=== PATIENT | male | born 1940 | race Caucasian/White ===

== ENCOUNTER 2019-08-20 07:29 | Inpatient (IN) ==
[2019-08-04 08:44] LABS: Appearance Urine Clear (Clear); Bacteria Urine Automated Negative (Negative); Bilirubin Urine Negative (Negative); Blood Urine Trace (Negative); Color Urine Yellow; Glucose Urine UA Negative (Negative); Ketones Urine 2+ (Negative); Leukocyte Esterase Urine Negative (Negative); Nitrite Urine Negative (Negative); Protein Urine Negative (Negative); Specific Gravity Urine 1.022 (1.000-1.030); Urobilinogen Urine Negative (Negative)
--- NOTE | 2019-08-15 08:52 | Anesthesiology Consultation ---
Date of Service August 15, 2019 Assessment & Plan Chart Review Chart Review: Acceptable Risk for Surgery and Patient NOT seen in Pre Admission Testing Low risk COVID screening, no sxs. COVID testing 08.14.19 results pending Consults Requested none History Surgery Operation Date: 08/20/19 08:00 Proposed Procedures p Left Total Knee Arthroplasty - Chucky Barrera MD Height/Weight Height: 5 ft 4 in Weight: 81.647 kg Allergies Allergy/AdvReac Type Severity Reaction Status Date / Time methylprednisolone Allergy Mild Tachycardia Unverified 08/14/19 14:15 Medications Home Medications Medication Instructions Recorded Confirmed Last Taken esomeprazole magnesium [Nexium] 20 mg PO QAM 08/14/19 08/14/19 Unknown tamsulosin [Flomax] 0.4 mg PO QAM 08/14/19 08/14/19 Unknown vit C,F-Zh-clulc-lutein-zeaxan 1 tab PO QAM 08/14/19 08/14/19 Unknown [PreserVision AREDS-2] Past Family History Family History Mother Diabetes Social History Smoking Status: Never smoker Do You Dip or Chew Tobacco: No Hx Alcohol Use: No Hx Substance Use: No substance use type: does not use Testing Laboratory Results Urine Color Yellow 08/04/19 08:08 Urine Appearance Clear (Clear) 08/04/19 08:08 Urine pH 5.0 (4.5-7.5) 08/04/19 08:08 Ur Specific [place] 1.022 (1.000-1.030) 08/04/19 08:08 Urine Protein Negative (Negative) 08/04/19 08:08 Urine Glucose (UA) Negative (Negative) 08/04/19 08:08 Urine Ketones 2+ (Negative) H 08/04/19 08:08 Urine Nitrite Negative (Negative) 08/04/19 08:08 Ur Leukocyte Esterase Negative (Negative) 08/04/19 08:08 Urine WBC (Auto) 1-5 /hpf (0-5) 08/04/19 08:08 Urine RBC (Auto) 5-10 /hpf (0-4) H 08/04/19 08:08 U Hyaline Cast (Auto) 1-5 /lpf (0-5) 08/04/19 08:08 U Epithel Cells (Auto) 5-10 /lpf (0-5) H 08/04/19 08:08 Urine Bacteria (Auto) Negative (Negative) 08/04/19 08:08 Blood Type O Positive 08/04/19 08:05 Antibody Screen NEGATIVE 08/04/19 08:05 07/29/19 H/H 14.1/43.1 PLT 228 INR 1.02 K 4.4 BUN 18 creat 0.8 gluc 147 HgbA1c 6.3 Electrocardiogram Date: 03/24/19 Findings: + NSR @ (83bpm) Chest X-Ray Date: 07/24/19 Findings: + NAD
--- NOTE | 2019-08-19 16:13 | History and Physical Report ---
DATE OF ADMISSION: 08/20/2019 CHIEF COMPLAINT: Chronic left knee pain. HISTORY OF PRESENT ILLNESS: A 78-year-old male patient of Dr. Barrera'karen complaining of chronic left knee pain, longstanding, now progressively getting worse. The patient has failed conservative treatment including intra-articular injections, anti-inflammatories, home exercise program and the use of a brace. The patient has pain with increased activities and his pain does interfere with his activities of daily living. The patient has been diagnosed with end-stage osteoarthritis per clinical and radiographic exams and wishes to proceed with a left total knee arthroplasty. PAST MEDICAL HISTORY: Hypercholesterolemia, migraines, rheumatoid arthritis, osteoarthritis, acid reflux, kidney stones. SOCIAL HISTORY: Nonsmoker and nondrinker. PAST SURGICAL HISTORY: Appendectomy, skin grafting on the right arm. FAMILY HISTORY: Noncontributory. REVIEW OF SYSTEMS: Chronic left knee pain, otherwise denies any shortness of breath, chest pain, nausea, vomiting or any other joint complaints. MEDICATIONS: 1. Tamsulosin 0.4 mg 1 tablet every other day. 2. Advil 200 mg 2 tablets daily as needed. 3. Nexium 20 mg daily. ALLERGIES: INCLUDE STEROIDS, WHICH CAUSE TACHYCARDIA. PHYSICAL EXAMINATION: GENERAL: Well-developed, well-nourished 78-year-old male in no acute distress. He is alert and oriented x3 and pleasant. HEENT: Normocephalic, atraumatic. Extraocular motions are intact. Pupils are equal and reactive to light. HEART: Regular rate and rhythm, no murmurs. LUNGS: Clear. ABDOMEN: Soft, nontender, bowel sounds present. EXTREMITIES: Left knee varus deformity with medial joint line tenderness, positive effusion. Range of motion of 0-125. 5/5 strength. Neurologically and neurovascularly intact in his left lower extremity. DIAGNOSES: Left knee end-stage osteoarthritis, hypercholesterolemia, migraines, rheumatoid arthritis, osteoarthritis, acid reflux, kidney stones. PLAN: The patient was advised of his diagnosis. Indications, risks, benefits, postop course have all been reviewed. The patient wished to proceed with a left total knee arthroplasty. Necessary consent forms, preoperative testing and clearances will be obtained.
[~2019-08-20 07:29] MED LIST: ACETAMINOPHEN 500 MG TAB PO SCH; BUPIVACAINE 0.5 % 5 MG/1 ML MPF 30ML VIAL ONE; BUPIVACAINE/EPINEPHRINE 0.25% 1:200,000 30 ML VIAL ONE; CEFAZOLIN 2000MG 2,000 MG/15 ML SYR IV SCH; CeleBREX 200 MG CAP PO SCH; GABAPENTIN 300 MG CAP PO SCH; LR 500ML BOLUS, THEN 15ML/HR IV SCH; METOCLOPRAMIDE HCL 10 MG TABLET PO SCH; ROPIVACAINE 0.5% HCL/PF 150 MG, BUPIVACAINE 0.5% MPF 30 ML, EPINEPHrine 30MG/30ML (OR U... INFIL SCH; TRANEXAMIC ACID 1,000 MG **IV Intra-op IV SCH; TRANEXAMIC ACID 1,000 MG **IV Pre-op IV SCH
[2019-08-20] MEDS ORDERED: MIDAZOLAM HCL 1 MG/ML 2ML VIAL ONE (07:40)
[2019-08-20] MEDS ORDERED: fentaNYL citrate 100 MCG/2 ML VIAL ONE (07:40)
[2019-08-20] MEDS: FAMOTIDINE 20 MG TAB PO SCH ×2 (08:45→08:46)
--- NOTE | 2019-08-20 08:53 | History & Physical Bridge Note ---
Date of Service August 20, 2019 History & Physical Bridge Note I have examined the patient, reviewed the History & Physical and in the interval since the performance of the History & Physical I have noted the following changes of clinical significance: no changes noted
[2019-08-20] MEDS ORDERED: ONDANSETRON INJ 2 MG/ML 2 ML VIAL IV PRN ×2 (09:02→13:20)
[2019-08-20] MEDS ORDERED: fentaNYL citrate 100 MCG/2 ML VIAL IV PRN (09:02)
[2019-08-20] MEDS ORDERED: ePHEDrine sulfate 50 MG/ML AMP IV PRN (09:02)
[2019-08-20] MEDS ORDERED: HYDROmorphone INJ 2 MG/ML SYR/VIAL IV PRN (09:02)
[2019-08-20] MEDS ORDERED: ATROPINE SULFATE 0.1 MG/ML 10ML SYR IV PRN (09:02)
[2019-08-20] MEDS ORDERED: ORTHO JOINT ANESTHETIC ONE (09:27)
[2019-08-20] MEDS ORDERED: BACITRACIN INJ 50,000 UNIT VIAL ONE (09:27)
[2019-08-20] MEDS ORDERED: PROPOFOL IV EMULSION 10 MG/ML 20 ML VIAL IV ONE (10:31)
[2019-08-20] MEDS ORDERED: LIDOCAINE HCL 2% 2 ML VIAL/AMP(20MG/ML) INFIL ONE (10:31)
[2019-08-20] MEDS ORDERED: ONDANSETRON INJ 2 MG/ML 2 ML VIAL ONE (10:31)
--- NOTE | 2019-08-20 11:46 | Post Operative Brief Note ---
Immediate Post Op Note v1 Date of Surgery August 20, 2019 Pre & Post Diagnosis Operation Date: 08/20/19 09:40 Pre-Op Diagnosis: LEFT KNEE OSTEOARTHRITIS Post-Op Diagnosis: LEFT KNEE OSTEOARTHRITIS I identified the patient and participated in the time-out.: Yes Procedure Operation Date: 08/20/19 09:40 Actual Procedures p Left Total Knee Arthroplasty, Cemented(Left) - Chucky Barrera MD Surgeon Chucky Barrera MD Mass Spectrometry Specialist MICHELLE Hamm Estimated Blood Loss 25 Findings Consistent with Post-Op Diagnosis Specimens Bone cuts Drains Hemovac Drain Anesthesia Type MAC Spinal Regional Complications none Disposition Accompanied Patient To Recovery: No Disposition: Recovery Room Overlapping Procedure I was present for: the critical portions of procedure. Back up surgeon: was not required during procedure.
[2019-08-20] MEDS: SODIUM CHLORIDE 0.9% 1000ML 1,000 ML IV SCH (12:50)
--- NOTE | 2019-08-20 12:56 | XRay Report ---
XR knee LT 1 or 2V routine CLINICAL HISTORY: Surgical Post Op COMPARISON: None. DISCUSSION: Anatomic alignment post total left knee arthroplasty. Could contact between prosthetic an d underlying bone. Expected postoperative soft tissue change IMPRESSION: Anatomic alignment post total left knee arthroplasty. ACT 112: Negative or not required by law. The above report was generated using voice recognition software. It may contain grammatical, syntax or spelling errors. Electronically signed by: Lamin Olivas M.D. 08/20/2019 12:54 PM
[2019-08-20] MEDS ORDERED: NALOXONE HCL 0.4 MG/1 ML VIAL/CARP IV PRN (13:20)
[2019-08-20] MEDS ORDERED: HYDROmorphone INJ 0.5 MG/0.5 ML SYR IV PRN (13:20)
[2019-08-20] MEDS ORDERED: bisacodyL 10 MG SUPP PR PRN (13:20)
--- NOTE | 2019-08-20 13:42 | Anesthesiology Progress Note ---
Date of Service August 20, 2019 Anesthesia Post Procedure Vital Signs Vital Signs: Temp Pulse Pulse Resp BP BP Pulse Ox 08/20/19 13:19 80 15 131/97 97 08/20/19 12:50 36.6 C 79 16 157/81 H 98 08/20/19 12:35 36.3 C L 78 17 147/83 H 97 08/20/19 12:25 79 21 139/71 96 08/20/19 12:15 90 16 118/64 97 08/20/19 12:05 36.4 C L 92 H 10 L 101/55 L 98 08/20/19 09:06 80 20 147/65 H 97 08/20/19 08:27 36.7 C 90 20 172/82 H 95 Pain Intensity Left Knee: Pain Intensity: 0 Transfer of Care Handoff Completed per policy Notes Mental Status: alert / awake / arousable and participated in evaluation Patient Amnestic to Procedure: Yes Nausea / Vomiting: adequately controlled Pain: adequately controlled Airway Patency, RR, SpO2: stable & adequate BP & HR: stable & adequate Hydration State: stable & adequate Anesthetic Complications: no major complications apparent and Pt Satisfied with anesthetic care
[2019-08-20] MEDS ORDERED: ACETAMINOPHEN 500 MG TAB PO SCH (14:00)
--- NOTE | 2019-08-20 14:27 | Consultation ---
Date of Consultation August 20, 2019 Assessment & Plan (1) S/P total knee arthroplasty: Post op day# 0 S/P Left TKA by Dr Barrera EBL#25ml Post op doing well -pain management per ortho -wound management per ortho -PT/OT as appropriate -DVT prophylaxis per ortho, SCDs -incentive spirometry -monitor H&H for acute blood loss anemia; pre-op Hgb: 14 (2) BPH (benign prostatic hyperplasia): -Continue tamsulosin (3) GERD (gastroesophageal reflux disease): -Continue PPI DVT Prophylaxis -SCDs Disposition per primary service Follows with Dr Hyman for routine care Pt was seen and care coordinated with Dr Lou. See addendum Pt will be followed by Dr Siddiqui starting 08/21/2019. Thank you for this consultation. We will follow the patient with you during their hospital stay. You can reach a member of the [facility] Hospitalist Team 18/09 via pager @ [phone]. Supervising Physician Co-Signing Physician Notes ATTENDING ADDENDUM : Patient seen and examined, care coordinated with Vi Ang PA-C This is a 78-year-old male status post knee surgery, for advanced DJD Recovering well postop, Continue pain management PT OT as per orthopedics Medically stable, please refer to further documentation by Vi Ang PA-C for discussion of other chronic issues Stephanie Lou MD History of Present Illness Requesting Physician: Dr Barrera Reason for Consultation: Post op medical management Attending Physician: Chucky Barrera MD History of Present Illness Pt is 78 y/o M with PMH BPH, GERD seen in medical consultation s/p elective L TKA today by Dr Barrera. Post op pt doing well. Denies any pain currently. Denies paresthesias. Ate entire meal tray without difficulty. Denies N/V, SOB, CP. Denies fever/chills, diaphoresis, diarrhea, constipation, SUNG, dizziness, syncope, vision changes, neck pain, CP, SOB, orthopnea, palpitations, cough, sore throat, choking, otalgia, rhinorrhea, abdominal pain, extremity edema, rashes, urinary symptoms. Allergies Allergy/AdvReac Type Severity Reaction Status Date / Time methylprednisolone AdvReac Mild Tachycardia Unverified 08/20/19 10:03 Home Medications Home Medications Medication Instructions Recorded Confirmed Type esomeprazole magnesium [Nexium] 20 mg PO QAM 08/14/19 08/20/19 History tamsulosin [Flomax] 0.4 mg PO QAM 08/14/19 08/20/19 History vit C,Q-Ci-asypk-lutein-zeaxan 1 tab PO QAM 08/14/19 08/20/19 History [PreserVision AREDS-2] Patient History Medical History (Updated 08/21/19 @ 10:15 by Sada Rodriguez PA-C) BPH (benign prostatic hyperplasia) GERD (gastroesophageal reflux disease) Hyperlipidemia NO MEDS Macular degeneration Osteoarthritis Pre-diabetes Surgical History (Updated 08/20/19 @ 14:32 by Sonali Ang PA-C) History of appendectomy History of arthroscopy RIGHT KNEE History of colonoscopy Hx of bilateral cataract extraction Hx of vasectomy Family History Mother Diabetes Social History Preferred Language: Nepali Communication Ability: Effective Extrusion Line Operator Required: No Beliefs That Will Affect Care: None marital status: / Current Living Situation: Alone Other Information That Helps Us Care for You: No Feels Safe at Home: Yes Safety Concerns: Feels Safe At This Time Smoking Status: Never smoker Do You Dip or Chew Tobacco: No ; Second Hand Exposure: Yes (IN PAST) ; Tobacco Cessation Education Requested by Patient: No Hx Alcohol Use: No Hx Substance Use: No Review of Systems Review of Systems: All systems reviewed & are unremarkable except as noted in HPI & below Physical Exam Physical Exam: General: no distress, WDWN Head: normocephalic, atraumatic Eyes: conjunctiva non-injected, anicteric ENT: normal inspection external ears, nose, mucous membranes moist Neck: supple, trachea midline, non-tender Lungs: clear, no respiratory distress, no wheezing/rhonchi/rales CV: RRR, no murmur, no pretibial edema Abd: normal BS, soft, non-tender Ext: no calf tenderness; Left leg with wrap in place, +hemovac drain in place with serosanguineous drainage, distal pulses intact, pedal pushes and pulls intact bilaterally, sensation to light touch intact Neuro: A&O x 3, no focal deficits noted, normal affect Skin: warm, dry Results & Data ([facility]) Vital Signs (Past 12 Hours) Vital Signs Temp Pulse Pulse Resp BP BP Pulse Ox 08/20/19 13:55 36.3 C L 82 18 152/81 H 97 08/20/19 13:19 80 15 131/97 97 08/20/19 12:50 36.6 C 79 16 157/81 H 98 08/20/19 12:35 36.3 C L 78 17 147/83 H 97 08/20/19 12:25 79 21 139/71 96 08/20/19 12:15 90 16 118/64 97 08/20/19 12:05 36.4 C L 92 H 10 L 101/55 L 98 08/20/19 09:06 80 20 147/65 H 97 08/20/19 08:27 36.7 C 90 20 172/82 H 95
--- NOTE | 2019-08-20 15:34 | Operative Report ---
Post Operative Report Pre & Post Diagnosis Operation Date: 08/20/19 09:40 Pre-Op Diagnosis: LEFT KNEE OSTEOARTHRITIS Post-Op Diagnosis: LEFT KNEE OSTEOARTHRITIS I identified the patient and participated in the time-out.: Yes Procedure Operation Date: 08/20/19 09:40 Actual Procedures p Left Total Knee Arthroplasty, Cemented(Left) - Chucky Barrera MD Surgeon Chucky Barrera MD Regular Senior Care Provider MICHELLE Hamm Estimated Blood Loss 25 Findings Consistent with Post-Op Diagnosis Specimens Bone cuts Drains 2 Hemovac Anesthesia Type MAC Spinal Regional Complications none Disposition Accompanied Patient To Recovery: No Disposition: Recovery Room Indications 78-year-old male with bilateral knee pain. Is left knee essentially [id number] in medial compartment on flexion views with a varus knee. Right knee has moderate osteoarthritis. Patient has undergone injection therapy his right knee said physical therapy and bracing. Patient scheduled for the left knee replacement. Description of Procedure Patient taken to the operating room the size under spinal MAC regional anesthesia. Patient was placed supine on the operating table. A pneumatic tourniquet was placed about the left next field left upper thigh. The left lower extremity was prepped and draped in sterile fashion. Knee exam demonstrated good range of motion varus knee no instability mild effusion. The leg was elevated exsanguinated with an Esmarch bandage and pneumatic tourniquet was raised to 300 millimeters of mercury. Skin incised sharply in longitudinal fashion. Subcutaneous flaps elevated. Incision was made through the medial retinaculum extending up in the mid third of the quadriceps tendon and down to the medial tibial tubercle. Intra-articular findings demonstrated primarily medial compartment osteoarthritis [id number] medial compartment grade 4 osteoarthritis. The [employer] triathlon total knee arthroplasty system was used. To expose the knee the infrapatellar fat pad was resected. The meniscal remnants and cruciate ligaments were resected. The anterior fat pad over the femur in the area of the anterior flange of the femoral component was resected. Lateral synovial bands release. The femur was exposed. An intramedullary drill hole was made into the canal. A guide kenn was placed. Distal femoral cutting guide was adjusted to resect a 5 degree valgus cut with 8 millimeters distal femur resected. The knee was extended and a subperiosteal peel lateral release was performed around the patella. Patella width was measured and width was reproduced using a freehand cut technique and a 33 x 9 symmetrical patella component. The 3 drill holes were made and the excess lateral facet was beveled off to prevent any impingement. Attention was taken back to the femur which was exposed with retractors and the femoral sizing guide was pinned in position. The drill holes were placed in 3 of external rotation to match epicondylar axis. Femur sized for a 5 component. The 4-in-1 cutting block was placed and then the anterior posterior and chamfer cuts are made. The tibia was then subluxed. The external tibial cutting guide was just to make a perpendicular cut to the long axis of the tibia below the most deficient bone loss side. A lamina press clipper was used and the flexion extension gaps were balanced. All posterior osteophytes removed. All meniscal remnants were resected. The tibia exposed and the trial tibial component size 5 was externally rotated in line with the tibial tubercle and pinned in position. The punch for stem was used. The notch cutting device was centered appropriately and the femoral notch cut was made. The femoral trial was inserted. Trial tibial inserts were placed and size 11 posterior stabilized gave balanced ligaments through flexion and extension. Patella tracking was assessed. The patella tracked centrally. The trial components were then removed and the orthomix anesthetic cocktail was injected per protocol. The knee was then copiously irrigated with pulsatile lavage antibiotic solution. Final components were then cemented with Simplex cement. Final components were triathlon size 5 left posterior stabilized femoral component with distal femoral fixation pegs. Primary tibial baseplate size 5, 5 x 11 mm posterior stabilized polyethylene tibial bearing insert. S 33 x 9 mm patella. While the cement cured the Betadine soak was used per protocol. After cement cured further pulsatile lavage irrigation performed and 2 Hemovac drains were brought out laterally. The quadriceps tendon and medial retinaculum were closed with figure of 8 #1 Vicryl sutures. The knee was taken through full range of motion and the repair was secure. The subcutaneous tissues were closed with 2-0 Vicryl sutures. Skin was closed with vazquez. Sterile dressings were applied. Patient procedure well. Lamin MARTINEZ was my physician religious assistant who assisted in patient positioning prepping and draping,leg positioning ,soft tissue retraction and instrument management and participated in the closing and will participate in postoperative care of the patient. The patient tolerated the procedure well. I attest to the content of the Intraoperative Record and any orders documented therein. Any exceptions are noted below.
[2019-08-20] MEDS: TAMSULOSIN HCL 0.4 MG CAP PO SCH (15:45)
[2019-08-20] MEDS: CEFAZOLIN 2000MG 2,000 MG/15 ML SYR IV SCH (18:00)
[2019-08-20] MEDS: ASPIRIN 81 MG ECTAB PO SCH (20:19)
[2019-08-20] MEDS: CeleBREX 200 MG CAP PO SCH (20:19)
[2019-08-20] MEDS: DOCUSATE SODIUM 100 MG CAP PO SCH (20:19)
[2019-08-20] MEDS: SENNA 8.6 MG TAB PO SCH (20:19)
[2019-08-21] MEDS: SODIUM CHLORIDE 0.9% 1000ML 1,000 ML IV SCH (00:22)
[2019-08-21] MEDS: OXYCODONE HCL IR 5 MG TAB (IMMEDIATE RELEASE) PO PRN ×5 (00:38→23:28)
[2019-08-21] MEDS: CEFAZOLIN 2000MG 2,000 MG/15 ML SYR IV SCH (00:41)
[2019-08-21] MEDS: PANTOprazole 40 MG TAB PO SCH (08:02)
[2019-08-21] MEDS: CeleBREX 200 MG CAP PO SCH ×2 (08:02→21:01)
[2019-08-21] MEDS: MULTIVITAMIN TAB PO SCH (08:03)
[2019-08-21] MEDS: DOCUSATE SODIUM 100 MG CAP PO SCH ×2 (08:03→21:01)
[2019-08-21] MEDS: ASPIRIN 81 MG ECTAB PO SCH ×2 (08:03→21:00)
[2019-08-21 08:21] LABS: Hematocrit (blood only) 36.4 % (42-52); Hemoglobin 11.9 g/dL (14.0-18.0); Mean Corpuscular Hemoglobin 28.7 pg (25-34); Mean Corpuscular Hgb Conc 32.7 g/dL (32-36); Mean Corpuscular Volume 87.7 fL (80-100); Mean Platelet Volume 10.3 fL (7.4-10.4); Platelet Count 185 K/uL (130-400); RDW Coefficient of Variation 13.9 % (11.5-14.5); RDW Standard Deviation 44.6 fL (36.4-46.3); Red Blood Count 4.15 M/uL (4.7-6.1); White Blood Count 6.97 K/uL (4.8-10.8)
--- NOTE | 2019-08-21 08:41 | Orthopedic Progress Note ---
Date of Service August 21, 2019 Assessment & Plan (1) S/P total knee arthroplasty: POD #1, Left TKA PT/ OT DT proph- ASA D/C planning- Home w OPPT per medicine- BP/ Tachycardic. Admission and Anticipated Discharge Date Admission Date: August 20, 2019 Subjective POD #1, Feeling well. Denies SOB/ CP/ N/V, no dizziness. Pain controlled well. Wishes for OPPT on D/C. BP and heart rate up this AM. Physical Exam Physical Exam: Left knee dressings c/d/i, no drainage. Toes/ ankle mobile. No calf tenderness. A&Ox3. Results & Data ([facility]) Vital Signs (Past 12 Hours) Vital Signs Temp Pulse Pulse Resp BP BP Pulse Ox 08/21/19 02:39 36.5 C 109 H 18 159/77 H 167/83 H 94 08/20/19 23:02 36.9 C 94 H 16 149/74 H 94
[2019-08-21 08:55] LABS: BUN Creatinine Ratio 21.1 (10-20); Calcium 8.4 mg/dl (8.5-10.1); Creatinine Clr Calc Pharmacy 75.3 ml/min; Est GFR (African American) 100.9; Est GFR (Non-African American) 87.1; Potassium 3.8 mmol/L (3.5-5.1)
[2019-08-21] MEDS ORDERED: NON-FORMULARY MEDICATION (Vit C,E-Zn-Coppr-Lutein-Zeaxan [Preservision Areds-2] 1 TAB) PO SCH (09:00)
[2019-08-21] MEDS ORDERED: TAMSULOSIN HCL 0.4 MG CAP PO SCH (09:00)
--- NOTE | 2019-08-21 10:18 | Hospitalist Progress Note ---
Date of Service August 21, 2019 Assessment & Plan (1) S/P total knee arthroplasty: Post op day# 1 S/P Left TKA by Dr Barrera EBL#25ml; hemovac 478ml Post op doing well pain/wound management per ortho activity and therapy as directed by ortho DVT prophylaxis per ortho, SCDs, ASA BID incentive spirometry monitor H&H for acute blood loss anemia; pre-op Hgb: 14 (H/H 11.9 and 36.4) (2) Elevated blood pressure reading: Patient with elevated blood pressure readings throughout the day yesterday and last evening, 167/83, 159/77, 170/79 He was also noted to be tachycardic at times as well After interviewing patient it does seem that elevated heart rate and BP correlates with increased pain last evening I did review epic chart which did reveal mildly elevated blood pressure dating back to 09/2017 including 07/28/2019 BP 152/70 (other readings include 150/82, 154/76) He likely has component of essential hypertension at baseline and is not treated on any antihypertensive Do not feel need to initiate any medications at this time but will monitor c losely In meantime continue pain regimen If continues to remain elevated consider reducing NSAID use (3) Pre-diabetes: A1C 6.3 07/30/2019 FBS 112 today monitor (4) Anemia: H&H stable at 11.9 and 36.4 Preop hemoglobin 14 Likely secondary to postoperative blood loss with Hemovac and dilutional component no need for transfusion at this time (5) BPH (benign prostatic hyperplasia): Continue tamsulosin (6) GERD (gastroesophageal reflux disease): Continue PPI DVT Prophylaxis ASA BID, SCDs Disposition per primary service Follows with Dr Hyman for routine care Pt was seen and care coordinated with Dr Siddiqui. Please see addendum Thank you for this consultation. We will follow the patient with you during their hospital stay. You can reach a [facility] via pager @ [phone]. Admission and Anticipated Discharge Date Admission Date: August 20, 2019 Supervising Physician Co-Signing Physician Notes HISTORY: Record reviewed. Patient interviewed and examined around 1050. Care coordinated with Sada Rodriguez PA-C; please refer to her documentation. Doing well postoperatively. Intermittent elevation of BP's. No chest pain, cough, SOB, nausea, vomiting. Passing flatus, but no stool yet. Pain fairly well-controlled. EXAM: General- no distress Lungs- clear to auscultation; no respiratory distress Cardiovascular- RRR; no JVD; no pretibial edema Abdomen- + bowel sounds, soft, nontender Extremities- no cyanosis; no calf tenderness; TEDS applied Neuro- alert, oriented Skin- warm & dry DATA: Hgb 11.9. ASSESSMENT AND PLAN: Doing well postoperatively. Intermittent elevations of blood pressure probably due to anxiety or pain- follow. Please refer to MICHELLE Rodriguez's documentation for discussion of other issues. Subjective Pt seen and examined in room 363-3. Follow up L TKA by Dr. Barrera POD #1. Doing well day 1. Sitting up in bedside chair. Noticed anesthesia started to wear off as overnight he had increased pain and discomfort in the left knee. He overall had a great day yesterday but again noticed increased pain and discomfort starting last evening. He is anxious to get started with therapy. He is tolerating oral intake and denies any nausea or vomiting. He further denies any fever, chills, sweats, chest pain, shortness of breath, dizziness. He is passing minimal flatus and has not had a BM yet. He is urinating without difficulty. Review of Systems Review of Systems: All systems reviewed & are unremarkable except as noted in HPI & below Physical Exam Physical Exam: Gen: WD/WN, male, sitting up in bedside chair, NAD, A&O x3 HEENT: Normocephalic, atraumatic, conjunctivae moist, sclerae anicteric, mucous membranes moist. Lung: Clear to Auscultation bilaterally, no wheezes/rales/rhonchi Heart: Regular rate, regular rhythm, 2/6 CHACHA noted best RUSB, no rubs, or gallops Abdomen: Soft, NT, ND +BS x 4 Extremities: Trace LLE edema, skin discoloration secondary to prep, bilateral pedal pulses +1 and equal, NVI distally. Dressing CDI. Skin: Warm, no rash, negative turgor. Results & Data Results & Data ([facility]) Vital Signs (Past 12 Hours) Vital Signs Temp Pulse Pulse Resp BP BP Pulse Ox 08/21/19 08:10 37.0 C 90 18 138/72 93 08/21/19 02:39 36.5 C 109 H 18 159/77 H 167/83 H 94 08/20/19 23:02 36.9 C 94 H 16 149/74 H 94 Laboratory Results Short CBC 08/21/19 Range/Units 07:54 WBC 6.97 (4.8-10.8) K/uL Hgb 11.9 L (14.0-18.0) g/dL Hct 36.4 L (42-52) % Plt Count 185 (130-400) K/uL BMP 08/21/19 07:54 Sodium 138 Potassium 3.8 Chloride 106 Carbon Dioxide 24 BUN 17 Creatinine 0.78 Glucose 112 H Calcium 8.4 L Medications Administered Acetaminophen (Tylenol) 1,000 mg PO Q8 [facility] Stop: 09/19/19 13:59 Last Admin: 08/20/19 14:05 Dose: 1,000 mg Documented by: [id number] Aspirin (Ecotrin Ectab) 81 mg PO BID [facility] Stop: 09/19/19 20:59 Last Admin: 08/21/19 08:03 Dose: 81 mg Documented by: [id number] Admin: 08/20/19 20:19 Dose: 81 mg Documented by: [id number] Celecoxib (Celebrex) 200 mg PO BID [facility] Stop: 09/19/19 20:59 Last Admin: 08/21/19 08:02 Dose: 200 mg Documented by: [id number] Admin: 08/20/19 20:19 Dose: 200 mg Documented by: [id number] Docusate Sodium (Colace) 100 mg PO BID [facility] Stop: 09/19/19 20:59 Last Admin: 08/21/19 08:03 Dose: 100 mg Documented by: [id number] Admin: 08/20/19 20:19 Dose: 100 mg Documented by: [id number] Multivitamins (Multivitamin Tab) 1 tab PO QAM [facility] Stop: 09/20/19 08:59 Last Admin: 08/21/19 08:03 Dose: 1 tab Documented by: [id number] Oxycodone HCl (Roxicodone Immediate Rel) 5 - 10 mg PO Q4H PRN PRN Reason: Pain or Pre PT Stop: 09/03/19 13:19 Last Admin: 08/21/19 09:11 Dose: 10 mg Documented by: [id number] Admin: 08/21/19 00:38 Dose: 10 mg Documented by: [id number] Pantoprazole Sodium (Protonix) 40 mg PO QAM [facility] Stop: 09/20/19 08:59 Last Admin: 08/21/19 08:02 Dose: Not Given Documented by: [id number] Sennosides (Senokot) 17.2 mg PO HS [facility] Stop: 09/19/19 20:59 Last Admin: 08/20/19 20:19 Dose: 17.2 mg Documented by: [id number] Tamsulosin HCl (Flomax) 0.4 mg PO DAILY@1600 [facility] Stop: 09/19/19 15:59 Last Admin: 08/20/19 15:45 Dose: Not Given Documented by: [id number] Discontinued Medications Acetaminophen (Tylenol) 1,000 mg PO PREOP [facility] Stop: 08/20/19 18:00 Last Admin: 08/20/19 08:44 Dose: 1,000 mg Documented by: [id number] Bacitracin (Bacitracin) Confirm Administered Dose 50,000 units .ROUTE .[facility] Stop: 08/20/19 09:28 Last Admin: 08/20/19 11:36 Dose: 50,000 units Documented by: [id number] Celecoxib (Celebrex) 200 mg PO PREOP [facility] Stop: 08/20/19 18:00 Last Admin: 08/20/19 08:44 Dose: 200 mg Documented by: [id number] Famotidine (Pepcid) 20 mg PO PREOP [facility] Stop: 08/20/19 18:00 Last Admin: 08/20/19 08:46 Dose: Not Given Documented by: [id number] Gabapentin (Neurontin) 300 mg PO PREOP [facility] Stop: 08/20/19 18:00 Last Admin: 08/20/19 08:45 Dose: 300 mg Documented by: [id number] Lactated Ringer's (Lr) 1,000 mls @ 15 mls/hr IV .Q24H [facility] Stop: 08/20/19 18:00 Last Infusion: 08/20/19 10:12 Dose: 0 mls/hr Documented by: [id number] Admin: 08/20/19 08:44 Dose: 15 mls/hr Documented by: [id number] Cefazolin Sodium (Ancef 2000mg) 2,000 mg in 15 mls @ 3.75 mls/min IV PREOP [facility]; Protocol Stop: 08/21/19 05:59 Last Admin: 08/20/19 10:10 Dose: 3.75 mls/min Documented by: [id number] Tranexamic Acid (Tranexamic Acid / 0.7% Nacl) 1,000 mg in 100 mls @ 600 mls/hr IV TODAY@0600 [facility] Stop: 08/20/19 18:00 Last Infusion: 08/20/19 10:10 Dose: 0 mls/hr Documented by: [id number] Admin: 08/20/19 09:55 Dose: 600 mls/hr Documented by: [id number] Tranexamic Acid (Tranexamic Acid / 0.7% Nacl) 1,000 mg in 100 mls @ 600 mls/hr IV TODAY@0600 [facility] Stop: 08/20/19 18:00 Last Infusion: 08/20/19 13:01 Dose: 0 mls/hr Documented by: [id number] Admin: 08/20/19 11:28 Dose: 600 mls/hr Documented by: [id number] Ropivacaine 150 mg/Bupivacaine HCl 30 ml/Epinephrine HCl 0.15 mg/Ketorolac Tromethamine 30 mg/Ketamine HCl 10 mg/ Clonidine HCl 100 mcg/ Sodium Chloride 92.35 mls @ 0 mls/hr INFIL TODAY@0600 [facility] Stop: 08/25/19 05:59 Last Admin: 08/20/19 11:30 Dose: 92.35 mls/hr Documented by: [id number] Sodium Chloride (Nss 1000ml) 1,000 mls @ 100 mls/hr IV .Q10H [facility] Stop: 08/21/19 06:00 Last Admin: 08/21/19 00:22 Dose: Not Given Documented by: [id number] Infusion: 08/21/19 00:22 Dose: 0 mls/hr Documented by: [id number] Admin: 08/20/19 12:50 Dose: 100 mls/hr Documented by: [id number] Cefazolin Sodium (Ancef 2000mg) 2,000 mg in 15 mls @ 3.75 mls/min IV Q8H [facility]; Protocol Stop: 08/21/19 02:03 Last Admin: 08/21/19 00:41 Dose: 3.75 mls/min Documented by: [id number] Admin: 08/20/19 18:00 Dose: 3.75 mls/min Documented by: [id number] Metoclopramide HCl (Reglan) 10 mg PO PREOP [facility] Stop: 08/20/19 18:00 Last Admin: 08/20/19 08:44 Dose: 10 mg Documented by: [id number] Miscellaneous (Ortho Joint Anesthetic) Confirm Administered Dose 1 ea .ROUTE .[facility] Stop: 08/20/19 09:28 Last Admin: 08/20/19 11:31 Dose: Not Given Documented by: [id number]
[2019-08-21] MEDS: TAMSULOSIN HCL 0.4 MG CAP PO SCH (15:35)
[2019-08-21] MEDS: MAGNESIUM HYDROXIDE SUSP 30 ML UDC PO PRN (19:31)
[2019-08-21] MEDS: SENNA 8.6 MG TAB PO SCH (21:01)
[2019-08-22] MEDS: MAGNESIUM HYDROXIDE SUSP 30 ML UDC PO PRN (05:51)
[2019-08-22 06:58] LABS: Hematocrit (blood only) 33.1 % (42-52); Hemoglobin 10.7 g/dL (14.0-18.0); Mean Corpuscular Hemoglobin 28.4 pg (25-34); Mean Corpuscular Hgb Conc 32.3 g/dL (32-36); Mean Corpuscular Volume 87.8 fL (80-100); Mean Platelet Volume 9.7 fL (7.4-10.4); Platelet Count 160 K/uL (130-400); RDW Coefficient of Variation 13.8 % (11.5-14.5); RDW Standard Deviation 44.6 fL (36.4-46.3); Red Blood Count 3.77 M/uL (4.7-6.1)
[2019-08-22 07:28] LABS: BUN Creatinine Ratio 18.7 (10-20); Calcium 8.2 mg/dl (8.5-10.1); Creatinine Clr Calc Pharmacy 73.5 ml/min; Est GFR (African American) 99.9; Est GFR (Non-African American) 86.2
--- NOTE | 2019-08-22 07:58 | Orthopedic Progress Note ---
Date of Service August 22, 2019 Assessment & Plan (1) S/P total knee arthroplasty: POD #2, Left TKA PT/ OT DT proph- ASA D/C planning- Home w OPPT today. per medicine- BP/ Tachycardic- stable from historical standpoint/ pain. Admission and Anticipated Discharge Date Admission Date: August 20, 2019 Subjective POD #2, Feeling well. Performed well in PT. Denies SOB, CP, N/V, Dizziness. Physical Exam Physical Exam: Left knee silverlon c/d/i, no drainage. Toes/ ankle mobile. No calf tenderness. A&Ox3. Results & Data ([facility]) Vital Signs (Past 12 Hours) Vital Signs Temp Pulse Resp BP Pulse Ox 08/20/ 23:13 37 C 95 H 16 145/71 H 95
[2019-08-22] MEDS: DOCUSATE SODIUM 100 MG CAP PO SCH (08:56)
[2019-08-22] MEDS: MULTIVITAMIN TAB PO SCH (08:56)
[2019-08-22] MEDS: CeleBREX 200 MG CAP PO SCH (08:56)
[2019-08-22] MEDS: PANTOprazole 40 MG TAB PO SCH (08:56)
[2019-08-22] MEDS: ASPIRIN 81 MG ECTAB PO SCH (08:57)
[2019-08-22] MEDS: OXYCODONE HCL IR 5 MG TAB (IMMEDIATE RELEASE) PO PRN (08:59)
--- NOTE | 2019-09-03 13:49 | Discharge Summary (DS) ---
HISTORY OF PRESENT ILLNESS: 78-year-old male patient of Dr. Barrera'karen complaining of chronic left knee pain, longstanding, progressively getting worse. The patient has failed conservative treatment; diagnosed with end-stage osteoarthritis. The patient elected to proceed with a left total knee arthroplasty. PAST MEDICAL HISTORY: Hypercholesterolemia, migraines, rheumatoid arthritis, osteoarthritis, acid reflux, kidney stones. POSTOPERATIVE COURSE: The patient underwent a left total knee arthroplasty on 08/20/2019. The patient was followed closely with medical consultation, DVT prophylaxis in the form of aspirin, physical therapy and pain control. The patient did have some episodes of hypertension postoperative day #1 as well as tachycardia. Medical consultation reviewed this and felt the tachycardia related to pain and benign essential hypertension. The patient was cleared by medicine. PHYSICAL EXAMINATION: On discharge left knee Silverlon dressing was clean, dry and intact. No redness or drainage. Toes and ankle were mobile. No calf tenderness. Negative Homans sign. Neurologically and neurovascularly intact left lower extremity. DIAGNOSES: Status post left total knee arthroplasty with postoperative essential hypertension and tachycardia due to pain with a history of hypercholesterolemia, migraines, rheumatoid arthritis, osteoarthritis, acid reflux, kidney stones. PLAN: The patient was discharged home with outpatient physical therapy. The patient will continue her preadmission medications as well as the addition of aspirin for DVT prophylaxis and pain medications. The patient will follow up as scheduled as an outpatient.
== END 2019-08-22 11:47 | disposition home or self-care (01) | DRG 470 ==
LOC: ASU 07:29 → 3W 12:07

== ENCOUNTER 2023-02-25 14:05 | Inpatient (IN) ==
--- OUTSIDE RECORDS SUMMARY | 2023-02-25 14:10 | External Medical Summary | Summary of Care ---
Author Name Unknown Organization [facility] Address [address] [place] [address] Phone [phone] Care Team Providers Care Post Partum Nurse Name Role Phone Unavailable Primary Care Provider Unavailabl e Reason for Referral * Evaluate & Treat - Unlimited Visits (Within 30 days (routine)) - Pending Review Specialty Diagnoses / Procedures Referred By Brett fish Referred To Contact Urology Diagnoses BPH with obstruction/lower urinary tract symptoms Lazaro Frazier Jr., MD [address] [place] [address] Referral ID Status Reason Start Date Expiration Date Visits Requested Visits Authorized [id number] Pending Review Specialty Services Required 3 [phone] Question Answer Referral Priority Within 30 days (routine) Where should this appointment be scheduled? External - [facility] What is the patient being referred for? BPH Reason for Visit * Reason Onset Date Comments Letter Requests 01/17/2023 Encounter Details Date Type Department Care Team ([facility] Contact Info) Description 01/17/2023 Telephone Urology Candida Kumar [address] [address] Services, Scheduling [address] [place] [address] Letter Requests Allergies Active Allergy Reactions Criticality Noted Date Comments Albuterol 12/13/2009 Finasteride Other (Please comment) 09/29/2013 Migraine Methylprednisolone Tachycardia 12/12/2016 documented as of this encounter (statuses as of 01/19/2023) Medications Medication Sig Dispensed Refills Start Date End Date Status PreserVision/Lutein Oral Capsule Take 1 Capsule by mouth in the morning. 0 Active Metamucil Smooth Texture 28.3 % Oral Powder (Psyllium) Take by mouth. 0 Act oswaldo Polyethylene Glycol 3350 17 GM/SCOOP Oral Powder Take 17 g by mouth in the morning. 0 Active Esomeprazole Magnesium 20 MG Oral Tablet Delayed Release Take by mouth . 0 Active Rosuvastatin Calcium 5 MG Oral Tablet (Crestor)Indication s:Dyslipidemia Take 1 Tablet by mouth in the morning. 90 Tablet 3 08/08/2022 Active Docusate Sodium 100 MG Oral Capsule (Colace) Take 1 Capsule by mouth in the morning and 1 Capsule before bedtime. 60 Capsule 11 10/03/2022 Active Dutasteride 0.5 MG Oral Capsule (Avodart) Take 1 Capsule by mouth in the morning. 90 Capsule 3 10/24/2022 Active Tamsulosin HCl 0.4 MG Oral Capsule (Flomax) Take 2 Capsules by mouth in the morning. 180 Capsule 3 11/07/2022 Active Triamcinolone Acetonide 0.1 % External Cream (Aristocort)Indicat ions:Cellulitis of right upper extremity Apply topically to affected area 2 times a day. To affected area. 15 g 0 12/17/2022 Active documented as of this encounter (statuses as of 01/19/2023) Active Problems Problem Noted Date Diagnosed Date Elevated prostate specific antigen (PSA) 023 Laceration of left hand without foreign body Primary osteoarthritis of right knee 12/29/2020 Obesity, Class I, BMI 30.0-34.9 (see actual BMI) 09/21/2020 Prediabetes 08/04/2019 Overview: Per Prediabetes protocol Heart murmur 04/01/2018 Overview: Undiagnosed, known since 16 Fatty liver 07/13/2017 Overview: U/s 5/18/18 BPH with obstruction/lower urinary tract symptom s 10/19/2013 Non-toxic multinodular goiter 10/17/2010 Dyslipidemia 02/04/2009 Overview: Per Lipid Taxonomy. ADVANCE DIRECTIVE INFORMATION 02/05/2006 Overview: Yes, Patient instructed to provide copy of advance directive for provider to review and to be scanned into Electronic Medical Record Gastroesophageal reflux disease without esophagi tis documented as of this encounter (statuses as of 01/19/2023) Resolved Problems Problem Noted Date Diagnosed Date Resolved Date Dyslipidemia, goal LDL below 100 01/12/2010 12/12/2016 PURE HYPERCHOLESTEROLEM 01/26 Overview: Per Lipid Taxonomy. Vertigo 12/12/2016 documented as of this encounter (statuses as of 01/19/2023) Immunizations Name Administration Dates Next Due COVID-19 mRNA, LNP-s, No Pre serve, 2-Dose Series (Moderna) 05/08/2020,03/27/2020 COVID-19, mRNA, LNP-s, PF, B ooster, 100mcg/0.5mg (Moderna) 05/27/2021,12/20/2020 H1N1 2009 Influenza, IM 01/26/2009 Pneumococcal Conjugate Vacc, 13 Valent (Prevnar) 06/22/2014 Pneumococcal Polysaccharide PPV23 (Pneumovax) 11/19/2008 SEASONAL INFLUENZA, PF, 6 M & Above, IM , (FLULAVAL or FLUZONE) 10/21/2019,11/22/2017 Season Influenza, Quad, PF, Adjuvanted, 65+ Yrs, IM (FLUAD) 10/21/2019 Seasonal Influenza Virus Vac cine, Unspecified Formulation 12/23/1997 Seasonal Influenza, Quadriva lent Hd (Fluzone Hd) 11/24/2020 Seasonal Influenza, Quadrivalent, ID 11/24/2021 Seasonal Influenza, Quadriva lent, No Preserve, IM 12/02/2016,12/03/2015 Seasonal Influenza, Split, I IV3, With Preserve, Inj 11/09/2014,11/19/2013,11/22/2012,11/15,12/13/2010,12/13/2009,11/19/2008 ,01/14/2001 Seasonal Influenza, Trivalen t, Adjuvanted, 65+ yrs 11/26/2018 TD - Tetanus/Diptheria (ADULT) 09/22/1996 TD, Preservative Free 01/12/2010 TDAP (age 10 and older)(Boostrix) 06/12/2020,02/2019 Varicella Zoster Vaccine (Adult) 03/04/2010 Zoster Vaccine Recombinant (Shingrix) 09/27/2019 ,07/28/2019 documented as of this encounter Social History Tobacco Use Types Packs/Day Years Used Date Smoking Tobacco: Never Smokeless Tobacco: Never Alcohol Use Standard Drinks/Week Comments No 0 (1 standard drink = 0.6 oz pur e alcohol) PHQ-2 Answer Date Recorded PHQ Adult Total Score 0 02/07/2022 Hunger Vital Sign Answer Date Recorded Within the past 12 months, y ou worried that your food would run out before you got the money to buy more. Never true 02/08/20 22 Within the past 12 months, t he food you bought just didn't last and you didn't have money to get more. Never true 02/07/2022 Sex and Gender Information Value Date Recorded Sex Assigned at Male 02/07/2022 4:24 PM EST Gender Identity Male 02/07/2022 4:24 PM EST Sexual Orientation Straight 07/28/2019 7: 41 AM EDT Job Start Date Occupation Industry Not on file Not on file Not on file documented as of this encounter Miscellaneous Notes * Telephone Encounter - Seema Vinson MED ASSIST - 01/19/2023 2:35 PM EST done * Addendum Note - Demetrio Ruvalcaba LPN - 01/17/2023 2:10 PM ESTAddended by: DEMETRIO RUVALCABA on: 01/17/2023 02:10 PM Modules accepted: Orders * Telephone Encounter - Demetrio Ruvalcaba LPN - 01/17/2023 2:09 PM EST Referral placed. Please fax to [facility] Urology per pts request. * Telephone Encounter - Neris Brannon OSA - 01/17/2023 1:18 PM EST Pt son called and asked if Dr Frazier could send a referral to [facility] fax Please return Patrick's call [phone] documented in this encounter Plan of Treatment Upcoming Encounters Date Type Department Care Team (Late st Contact Info) Description 02/13/2023 7:40 AM EST Office Visit [facility] Practice [facility] [address] [address] Clarissa Driver DO [address] [place] [address] 02/23/2023 7:45 AM EST Office Visit Otolaryngology [facility] [place] [address] [place] [id number] Peg Bridges MD [address] [place] [address] Scheduled Procedures Name Priority Associated Diagnoses Date/Ti me COLONOSCOPY FLEXIBLE PROXIMA L DIAGNOSTIC Recall Encounter for screening colonoscopy Scheduled Referrals Name Type Priority Associated Diagnoses Orde r Schedule UROLOGY REFERRAL OP Referral Within 30 da ys (routine) BPH with obstruction/lower urinary tract symptoms Ordered: 01/17/2023 Health Maintenance Due Date Last Done Comments COVID-19 Vaccine ( season) 2022 05/27/2021, 12/20/2020, 05/08/2020, Additional history exists Influenza Vaccine (FLU shot) (#1) 2022 11/24/2021, 11/24/2020, 10/21/2019, Additional history exists Depression Screening 02/07/2023 02/07/2022 HbA1c 02/08/2023 02/08/2022, 08/27, 07/30/2019 DTaP,Tdap,and Td Vaccines (3 - Td or Tdap) 06/12/2030 06/12/2020, 07/28/2019, 01/12/2010, Additional history exists Pneumococcal Vaccine: 65+ Years Completed 06/22/2014, 11/19/2008 Zoster Vaccines Completed 09/27/2019, 02/2019, 03/04/2010 GARDASIL-HPV IMMUNIZATION SERIES Aged Out No longer eligible based on patient's age to complete this topic Hepatitis B Aged Out No longer eligi ble based on patient's age to complete this topic MENINGOCOCCAL (MENACTRA/MENVEO) Aged Out No longer eligible based on patient's age to complete this topic documented as of this encounter Medical Devices Not on filedocumented as of this encounter Visit Diagnoses Diagnosis BPH with obstruction/lower urinary tract symptoms- Primary Hypertrophy of prostate with urinary obstruction and other lower urinary tract symptoms (LUTS) documented in this encounter Advance Directives Latest Code Status on File Code Status Date Activated Date Inactivated Comments Full Code 09/28/2017 8:15 AM 09/28/2017 3:41 PM This or braxton reflects the patients wishes and were consensually agreed upon. Code Status History Code Status Date Activated Date Inactivated Comments Full Code 09/21/2017 9:32 AM 09/21/2017 5:21 PM This order reflects the patients wishes and were consensually agreed upon.
--- OUTSIDE RECORDS SUMMARY | 2023-02-25 14:10 | External Medical Summary | Summary of Care ---
Author Name Unknown Organization [facility] Address [address] [place] [address] Phone [phone] Care Team Providers Care Prefitter Doors Name Role Phone Derek Benoit DO Primary Care Provider [phone] Reason for Visit * Reason Comments New Consultation * Evaluate & Treat - Unlimited Visits (Within 10 days (routine)) - Pending Review Specialty Diagnoses / Procedures Referred By Brett fish Referred To Contact Urology Diagnoses BPH with obstruction/lower urinary tract symptoms Elevated prostate specific antigen (PSA) Derek Benoit DO [address] [place] [address] Referral ID Status Reason Start Date Expiration Date Visits Requested Visits Authorized [id number] Pending Review Specialty Services Required 08/08/[phone] Encounter Details Date Type Department Care Team Description 11/13/2022 Office Visit Urology Candida Kumar [address] [place] [address] Lazaro Frazier Jr., MD [address] [place] [address] BPH with obstruction/lower urinary tract symptoms*; Nocturia Allergies Active Allergy Reactions Severity Noted Date Comments Albuterol 12/13/2009 Finasteride Other (Please comment) 09/29/2013 Migraine Methylprednisolone Tachycardia 12/12/2016 documented as of this encounter (statuses as of 11/13/2022) Medications Medication Sig Dispensed Refills Start Date End Date Status PreserVision/Lutei n Oral Capsule Take 1 Capsule by mouth in the morning. 0 Active Metamucil Smooth Texture 28.3 % Oral Powder (Psyllium) Take by mouth. 0 Active Polyethylene Glycol 3350 17 GM/SCOOP Oral Powder Take 17 g by mouth in the morning. 0 Active Esomeprazole Magnesium 20 MG Oral Tablet Delayed Release Take by mouth . 0 Acti ve Rosuvastatin Calcium 5 MG Oral Tablet (Crestor)Indicatio ns:Dyslipidemia Take 1 Tablet by mouth in the morning. 90 Tablet 3 08/08/2022 Active Docusate Sodium 100 MG Oral Capsule (Colace) Take 1 Capsule by mouth in the morning and 1 Capsule before bedtime. 60 Capsule 11 10/03/2022 Active Additional Information Patient not taking.Reported on 10/24/2022 Dutasteride 0.5 MG Oral Capsule (Avodart) Take 1 Capsule by mouth in the morning. 90 Capsule 3 10/24/2022 Active Tamsulosin HCl 0.4 MG Oral Capsule (Flomax) Take 2 Capsules by mouth in the morning. 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 ADVANCE DIRECTIVE INFORMATION 02/05/2006 Overview: Yes, Patient instructed to provide copy of advance directive for provider to review and to be scanned into Electronic Medical Record Gastroesophageal reflux disease without esophagitis documented as of this encounter (statuses as of 11/13/2022) Resolved Problems Problem Noted Date Resolved Date Dyslipidemia, goal LDL below 100 01/12/2010 12/12/2016 PURE HYPERCHOLESTEROLEM 02/05/20 Overview: Per Lipid Taxonomy. Vertigo 12/12/2016 documented as of this encounter (statuses as of 11/13/2022) Immunizations Name Administration Dates Next Due COVID-19 mRNA, LNP-s, No Pre serve, 2-Dose Series (Moderna) 05/08/2020,03/27/2020 COVID-19, mRNA, LNP-s, PF, B ooster, 100mcg/0.5mg (Moderna) 05/27/2021,12/20/2020 H1N1 2009 Influenza, IM 01/26/2009 Pneumococcal Conjugate Vacc, 13 Valent (Prevnar) 06/22/2014 Pneumococcal Polysaccharide PPV23 (Pneumovax) 11/19/2008 Season Influenza, Quad, PF, Adjuvanted, 65+ Yrs, IM (FLUAD) 10/21/2019 Seasonal Influenza, PF, 6 mo ns & Above, IM , (Flulaval) 10/21/2019,11/22/2017 Seasonal Influenza, Quadriva lent Hd (Fluzone Hd) 11/24/2020 Seasonal Influenza, Quadrivalent, ID 11/24/2021 Seasonal Influenza, Quadriva lent, No Preserve, IM 12/02/2016,12/03/2015 Seasonal Influenza, Split, I IV3, With Preserve, Inj 11/09/2014,11/19/2013,11/22/2012,11/15,12/13/2010,12/13/2009,11/19/2008 Seasonal Influenza, Trivalen t, Adjuvanted, 65+ yrs 11/26/2018 TD, Preservative Free 01/12/2010 TDAP (age 10 and older)(Boostrix) 06/12/2020,02/2019 Varicella Zoster Vaccine (Adult) 03/04/2010 Zoster Vaccine Recombinant (Shingrix) 09/27/2019 ,07/28/2019 documented as of this encounter Social History Tobacco Use Types Packs/Day Years Used Date Smoking Tobacco: Never Smokeless Tobacco: Never Alcohol Use Standard Drinks/Week Comments No 0 (1 standard drink = 0.6 oz pur e alcohol) Food Insecurity Answer Date Recorded Within the past 12 months, y ou worried that your food would run out before you got money to buy more. Never true 02/07/2022 Within the past 12 months, t he food you bought just didn't last and you didn't have money to get more. Never true 02/07/2022 Sex Assigned at Date Recorded Male 02/07/2022 4:[address] Job Start Date Occupation Industry Not on file Not on file Not on file documented as of this encounter Progress Notes * Lazaro Frazier Jr., MD - 11/13/2022 2:13 PM EDT Images from the original note were not included. [id number] PCP: [place] [address] [phone] Lesli Love is a 81 year old male, who presents in referral for evaluation of BPH with significant nocturia seen recently in [place]. He had a little improvement with daily Flomax now 0.8mg nightly and Dutasteride but only has been on if for a short time. PSA Results: Lab Results Component Value Date/Time PSA - [facility] 4.96 (H) 10/03/2022 08:16 AM PSA - [facility] 4.67 (H) 08/08/2022 08:55 AM PSA - [facility] 5.47 (H) 02/08/2022 08:10 AM PSA - [facility] 4.91 (H) 07/03/2017 09:16 AM PSA - [facility] 5.61 (H) 09/17/2013 10:06 AM PSA - [facility] 4.66 (H) 11/25/2012 08:26 AM PSA SCREENING 4.97 (H) 09/20/2012 11:45 AM PSA SCREENING 3.36 10/03/2011 08:44 AM PSA SCREENING 4.65 (H) 11/09/2008 10:49 AM Component Ref Range & Units 2 wk ago Color, Urine Light Yellow, Yellow Yellow Clarity, Urine Clear Clear Glucose, Urine Negative mg/dL Negative Bilirubin, Urine Negative Negative Ketone, Urine Negative mg/dL Trace Abnormal Specific [place], Urine 1.003 - 1.030 1.025 Blood, Urine Negative Trace-lysed Abnormal pH, Urine 5.0, 5.5, 6.0, 6.5, 7.0, 7.5 units 6.0 Protein, Urine Negative mg/dL Negative Urobilinogen, Urine 0.2, 1.0 mg/dL 0.2 Nitrite, Urine Negative Negative Esterase, Urine Negative Negative Resulting Agency GML Specimen Collected: 10/24/22 07:56 Last Resulted: 10/24/22 07:59 Lab Flowsheet Order Details View Encounter Lab and Collection D He did have a renal ultrasound 2 years ago revealing a large prostate over 70 gm with normal kidneys. Current Outpatient Medications Medication Sig Dispense Refill PreserVision/Lutein Oral Capsule Take 1 Capsule by mouth in the morning. Metamucil Smooth Texture 28.3 % Oral Powder (Psyllium) Take by mouth. Rosuvastatin Calcium 5 MG Oral Tablet (Crestor) Take 1 Tablet by mouth in the morning. 90 Tablet 3 Dutasteride 0.5 MG Oral Capsule (Avodart) Take 1 Capsule by mouth in the morning. 90 Capsule 3 Tamsulosin HCl 0.4 MG Oral Capsule (Flomax) Take 2 Capsules by mouth in the morning. 180 Capsule 3 Polyethylene Glycol 3350 17 GM/SCOOP Oral Powder Take 17 g by mouth in the morning. (Patient not taking: Reported on 10/24/2022) Esomeprazole Magnesium 20 MG Oral Tablet Delayed Release Take by mouth . (Patient not taking: Reported on 10/24/2022) Docusate Sodium 100 MG Oral Capsule (Colace) Take 1 Capsule by mouth in the morning and 1 Capsule before bedtime. (Patient not taking: Reported on 10/24/2022) 60 Capsule 11 No current facility-administered medications for this visit. Review of patient's allergies indicates: Allergen Reactions Albuterol Finasteride Other (Please comment) Migraine Medrol [Methylprednisolone] Tachycardia Social History: Social History Tobacco Use Smoking status: Never Smokeless tobacco: Never Substance Use Topics Alcohol use: No Vaping/E-Cigarette Use Vaping/E-Cigarette Use Never User Vaping/E-Cigarette Substances Vaping/E-Cigarette Devices Past Surgical History: Procedure Laterality Date ARTHROPLASTY KNEE TOTAL Left 08/20/2019 COLONOSCOPY THRU STOMA, W/BIOPSY 02/2004 diverticulosis COLONOSCOPY, DIAGNOSTIC (RECTUM) 08/13/2017 diverticulosis, repeat 10 yrs/COLONOSCOPY FLEXIBLE PROXIMAL DIAGNOSTIC performed by Fercho Ocasio MD at ENDOSCOPY [facility] COLORECTAL CANCER SCREEN;W/FLE 1978 Negative flex/sigmoidoscopy CYSTO/URETERO W/LITHOTRIPSY Right 09/21/2017 CYSTOURETHROSCOPY URETEROSCOPY WITH LITHOTRIPSY AND STENT INSERTION performed by Kym Caballero MD at OR [facility] CYSTOURETERO W/LITHOTRIPSY Right 09/28/2017 CYSTOURETHROSCOPY URETEROSCOPY WITH LITHOTRIPSY performed by Kym Caballero MD at OR [facility] EGD, FLEXIBLE, W/BIOPSY 03/02 gastric reflux. hiatus hernia HEMORRHOIDECTOMY, SIMPLE, 1 COLUMN NEEDLE BIOPSY OF THYROID GLAND 11/16/2011 Benign adenomatoid nodule NEEDLE/PUNCH BIOPSY OF PROSTATE 10-23-06 Prostate,Needle/Punch Biopsy REMOVAL OF APPENDIX SKIN GRAFT EA ADDIT'L 100SQ CM skin graft to right arm as a yout due to wringer washer injury UPPER GI ENDOSCOPY/EXAM Findings c/w reflux esophagitis; bx negative for H. pylori or cancerous findings US HEAD AND NECK 11/2012 no change from prior studies Patient Active Problem List Diagnosis Code Gastroesophageal reflux disease without esophagitis K21.9 ADVANCE DIRECTIVE INFORMATION Dyslipidemia E78.5 Non-toxic multinodular goiter E04.2 BPH with obstruction/lower urinary tract symptoms N40.1, N13.8 Fatty liver K76.0 Heart murmur R01.1 Prediabetes R73.03 Obesity, Class I, BMI 30.0-34.9 (see actual BMI) E66.9 Primary osteoarthritis of right knee M17.11 Laceration of left hand without foreign body S61.412A Elevated prostate specific antigen (PSA) R97.20 Past Surgical History: no changes Past Medical History: no changes Patient's Family History: no changes GENERAL EXAM: Alert and oriented x3 and no acute distress ABDOMEN: negative, Abdomen soft, non-tender. BS normal, No masses, organomegaly, hernia RECTAL EXAM: deferred. GENITAL EXAM: Deferred Impression/Plan: He has BPH and really has not waited long enough to see results from the new medication for what is known to be a very large prostate. He may be an early diabetic and probably would benefit from better dietary control and a discussion with his PCP. We will have him evaluate the diet and see if he has higher sugars at night. We will get a flow PVR check in 6 months with new PSA. Lazaro Frazier Jr, MD 2:13 PM 11/13/2022 documented in this encounter Nursing Notes * [place] Renee LPN - 11/13/2022 2:07 PM EDT Patient presents for second option regarding voiding issues. [facility] Questioning if he hasn't given it enough time to work. Was waking up about 7-8 times a night to void, now waking up about 4. No complaints about his urination throughout the day. Was advised to take Tamsulosin in the evening, doesn't know if he's taking it late enough. Started taking it around 5pm. Doesn't know if that's too soon. documented in this encounter Plan of Treatment Upcoming Encounters Date Type Specialty Care Team Description 02/23/2023 Office Visit Otolaryngology Peg Bridges MD [address] [place] [address] 05/09/2023 Office Visit Urology Lazaro Frazier Jr., MD [address] [place] [address] Scheduled Orders Name Type Priority Associated Diagnoses Orde r Schedule PSA Lab Routine BPH with obstruction/lower urinary tract symptoms Expected: 05/14/2023 (Approximate), Expires: 11/14/2023 Scheduled Procedures Name Priority Associated Diagnoses Date/Ti me COLONOSCOPY FLEXIBLE PROXIMA L DIAGNOSTIC Recall Encounter for screening colonoscopy Health Maintenance Due Date Last Done Comments COVID-19 Vaccine (5 - Moderna series) 07/22/2021 05/27/2021, 12/20/2020, 05/08/2020, Additional history exists Influenza Vaccine (FLU shot) (#1) 2022 11/24/2021, 11/24/2020, 10/21/2019, Additional history exists Depression Screening 02/07/2023 02/07/2022 HbA1c 02/08/2023 02/08/2022, 08/27, 07/30/2019 DTaP,Tdap,and Td Vaccines (3 - Td or Tdap) 06/12/2030 06/12/2020, 07/28/2019, 01/12/2010, Additional history exists Pneumococcal Vaccine: 65+ Years Completed 06/22/2014, 11/19/2008 Zoster Vaccines Completed 09/27/2019, 0602/2019, 03/04/2010 GARDASIL-HPV IMMUNIZATION SERIES Aged Out No [...] and other lower urinary tract symptoms (LUTS) Nocturia documented in this encounter Advance Directives Latest [...] patients wishes and were consensually agreed upon. Care Teams Prefitter Doors Relationship Specialty Start Date End Date Derek Benoit DO [address] [place] [address] PCP - General Family Medicine 09/23/20 documented as of this encounter
--- OUTSIDE RECORDS SUMMARY | 2023-02-25 14:10 | External Medical Summary | Summary of Care ---
Author Name Unknown Organization [facility] Address [address] [place] [address] Phone [phone] Care Team Providers Care Construction Rigger Name Role Phone Unavailable Primary Care Provider Unavailabl e Reason for Referral * Evaluate & Treat - Unlimited Visits (Within 30 days (routine)) - Pending Review Specialty Diagnoses / Procedures Referred By Brett fish Referred To Contact Urology Diagnoses BPH with obstruction/lower urinary tract symptoms Lazaro Frazier Jr., MD [address] [place] [address] Referral ID Status Reason Start Date Expiration Date Visits Requested Visits Authorized [id number] Pending Review Specialty Services Required [phone] Question Answer Referral Priority Within 30 days (routine) Where should this appointment be scheduled? External - [facility] What is the patient being referred for? BPH Reason for Visit * Reason Onset Date Comments Letter Requests 01/17/2023 Encounter Details Date Type Department Care Team ([facility] Contact Info) Description 01/17/2023 Telephone Urology Candida Kumar [address] [place] [address] Services, Scheduling [address] [place] [address] Letter Requests Allergies Active Allergy Reactions Criticality Noted Date Comments Albuterol 12/13/2009 Finasteride Other (Please comment) 09/29/2013 Migraine Methylprednisolone Tachycardia 12/12/2016 documented as of this encounter (statuses as of 01/17/2023) Medications Medication Sig Dispensed Refills Start Date [...] as of this encounter (statuses as of 01/17/2023) Active Problems Problem Noted Date Diagnosed Date [...] as of this encounter (statuses as of 01/17/2023) Resolved Problems Problem Noted Date Diagnosed Date Resolved Date Dyslipidemia, goal LDL below 100 01/12/2010 12/12/2016 PURE HYPERCHOLESTEROLEM 01/26 Overview: Per Lipid Taxonomy. Vertigo 12/12/2016 documented as of this encounter (statuses as of 01/17/2023) Immunizations Name Administration Dates Next Due COVID-19 [...] as of this encounter Miscellaneous Notes * Addendum Note - Demetrio Ruvalcaba LPN - 01/17/2023 2:10 PM ESTAddended by: DEMETRIO RUVALCABA on: 01/17/2023 02:10 PM Modules accepted: Orders * Telephone Encounter - Demetrio Ruvalcaba LPN - 01/17/2023 2:09 PM EST Referral placed. Please fax to [facility] Urology per pts request. * Telephone Encounter - Neris Brannon OSA - 01/17/2023 1:18 PM EST Pt son called and asked if Dr Frazier could send a referral to [facility] fax Please return Patrick's call [phone] documented in this encounter Plan of Treatment Upcoming Encounters Date Type Department Care Team (Late st Contact Info) Description 02/13/2023 7:40 AM EST Office Visit Family Practice [facility] [address] [facility] [place] [address] Clarissa Driver DO [address] [facility] [place] [address] 02/23/2023 7:45 AM EST Office Visit Otolaryngology [facility] [address] [place] [address] Peg Bridges MD [address] [place] [address] Scheduled Procedures Name Priority Associated Diagnoses Date/Ti [...] Depression Screening 02/07/2023 02/07/2022 HbA1c 02/08/2023 02/08/2022, 07/08/2020, 07/30/2019 DTaP,Tdap,and Td Vaccines (3 - Td [...]
--- OUTSIDE RECORDS SUMMARY | 2023-02-25 14:10 | External Medical Summary | Summary of Care ---
Author Name Unknown Organization [facility] Address [address] [place] [address] Phone [phone] Care Team Providers Care Supervisor/Port Director Name Role Phone Unavailable Primary Care Provider Unavailabl e Reason for Visit * Reason Onset Date Comments Letter Requests 01/17/2023 Encounter Details Date Type Department Care Team (Late st Contact Info) Description 01/17/2023 Telephone Urology Candida Kumar [address] [place] [address] Services, Scheduling [address] [place] [address] Letter Requests Allergies Active Allergy Reactions Criticality [...] U/s 07/13/17 BPH with obstruction/lower urinary tract symptom s [...] 65+ Yrs, IM (FLUAD) 10/21/2019 Seasonal Influenza, Quadriva lent Hd (Fluzone Hd) [...] encounter Miscellaneous Notes * Telephone Encounter - Neris Brannon OSA - 01/17/2023 1:18 PM EST Pt son called and asked if Dr Frazier could send a referral to [facility] fax Please return Patrick's call [phone] documented in this encounter Plan of Treatment Upcoming Encounters Date Type Department Care Team (Late st Contact Info) Description 02/13/2023 7:40 AM EST Office Visit Family Practice [facility] [address] [facility] [place] [address] Clarissa Driver, [address] [facility] [place] [address] 02/23/2023 7:45 AM EST Office Visit Otolaryngology [facility] [address] [place] [address] Peg Bridges MD [address] [place] [address] Scheduled Procedures Name Priority Associated Diagnoses Date/Ti [...] Not on filedocumented as of this encounter Advance Directives Latest Code Status [...]
--- OUTSIDE RECORDS SUMMARY | 2023-02-25 14:10 | External Medical Summary | Summary of Care ---
Author Name Unknown Organization [facility] Address [address] [place] [address] Phone [phone] Care Team Providers Care Brainer Name Role Phone KayceeDerek lema Primary Care Provider Reason for Visit * Reason Onset Date Comments Appointment 11/06/2022 Encounter Details Date Type Department Care Team Description 11/06/2022 Telephone Urology Candida Kumar [address] [place] [address] Lazaro Frazier Jr., MD [address] [place] [address] Appointment Allergies Active Allergy Reactions Severity Noted Date Comments Albuterol 12/13/2009 Finasteride Other (Please comment) 09/29/2013 Migraine Methylprednisolone Tachycardia 12/12/2016 documented as of this encounter (statuses as of 11/06/2022) Medications Medication Sig Dispensed Refills Start Date [...] Take by mouth . 0 Acti ve Tamsulosin HCl 0.4 MG Oral Capsule (Flomax)Indication s:BPH with obstruction/lower urinary tract symptoms Take 1 Capsule by mouth in the morning. 90 Capsule 3 08/08/2022 Active Rosuvastatin Calcium 5 MG Oral Tablet (Crestor)Indicatio [...] the morning. 90 Capsule 3 10/24/2022 Active documented as of this encounter (statuses as of 11/06/2022) Active Problems Problem Noted Date Elevated prostate [...] as of this encounter (statuses as of 11/06/2022) Resolved Problems Problem Noted Date Resolved Date Dyslipidemia, goal LDL below 100 01/12/2010 12/12/2016 PURE HYPERCHOLESTEROLEM 02/05/20 09 Overview: Per Lipid Taxonomy. Vertigo 12/12/2016 documented as of this encounter (statuses as of 11/06/2022) Immunizations Name Administration Dates Next Due COVID-19 [...] encounter Miscellaneous Notes * Telephone Encounter - Joan Ruvalcaba LPN - 11/06/2022 10:50 AM EDT Pt has an appt with Dr. Frazier for f/u. Pt last appt with in [place] and he has a 3 month f.u with them already scheduled. Calling to see if pt is going to continue with or [place]. Unable to reach or leave a at this time. documented in this encounter Plan of Treatment Upcoming Encounters Date Type Specialty Care Team Description 11/13/2022 Office Visit Urology Lazaro Frazier Jr., MD [address] [address] [place] [address] 01/30/2023 Office Visit Urology Rush Velasco PA-C [address] [facility] 02/23/2023 Office Visit Otolaryngology Peg Bridges MD [address] [facility] [place] [address] Scheduled Procedures Name Priority Associated Diagnoses Date/Ti [...] and were consensually agreed upon. Care Teams Brainer Relationship Specialty Start Date End Date Derek Benoit DO [address] [place] [address] PCP - General Family Medicine 09/23/20 documented as of this encounter
--- OUTSIDE RECORDS SUMMARY | 2023-02-25 14:10 | External Medical Summary | Summary of Care ---
Author Name Unknown Organization [facility] Address [address] [place] [address] Phone [phone] Care Team Providers Care Hogshead Wrecker Name Role Phone Derek Benoit DO Primary Care Provider Reason for Visit * Reason Onset Date Comments Medication Refill 11/07/2022 Encounter Details Date Type Department Care Team Description 11/07/2022 Telephone Urology, [place] [address] [place] [address] Rush Velasco PA-C [address] [place] [address] Medication Refill Allergies Active Allergy Reactions Severity Noted Date Comments Albuterol 12/13/2009 Finasteride Other (Please comment) 09/29/2013 Migraine Methylprednisolone Tachycardia 12/12/2016 documented as of this encounter (statuses as of 11/11/2022) Medications Medication Sig Dispensed Refills Start Date [...] as of this encounter (statuses as of 11/11/2022) Active Problems Problem Noted Date Elevated prostate [...] as of this encounter (statuses as of 11/11/2022) Resolved Problems Problem Noted Date Resolved Date Dyslipidemia, goal LDL below 100 01/12/2010 12/12/2016 PURE HYPERCHOLESTEROLEM 02/05/20 09 Overview: Per Lipid Taxonomy. Vertigo 12/12/2016 documented as of this encounter (statuses as of 11/11/2022) Immunizations Name Administration Dates Next Due COVID-19 [...] encounter Miscellaneous Notes * Telephone Encounter - Nohelia Kim CPhT - 11/07/2022 10:19 AM EDT Patient requesting a new Tamsulosin 0.4mg order with the increased dose sent to [facility] , they cannot fill rx on file for once daily on Insurance it is to soon please reorder with updated directions patient needs ordered today Thank you, Plan: 1. He can take Flomax 0.8 mg at evening. 2. Add dutasteride 0.5 mg daily. 3. Return in three months. Nohelia Kim Game Farm Supervisor II [facility] ([facility]) 11/07/2022 10:21 AM documented in this encounter Plan of Treatment Upcoming Encounters Date Type Specialty Care Team Description 11/13/2022 Office Visit Urology Lazaro Frazier Jr., MD [address] [id number] 01/30/2023 Office Visit Urology Rush Velasco PA-C [address] [place] [address] 02/23/2023 Office [facility] [place] [address] Scheduled Procedures Name Priority Associated Diagnoses Date/Ti [...] and were consensually agreed upon. Care Teams Hogshead Wrecker Relationship Specialty Start Date End Date Derek Benoit DO [address] [place] [address] PCP - General Family Medicine 09/23/20 documented as of this encounter
--- OUTSIDE RECORDS SUMMARY | 2023-02-25 14:10 | External Medical Summary | Summary of Care ---
Author Name Unknown Organization [facility] Address [address] [place] [address] Phone [phone] Care Team Providers Care Joiner Name Role Phone Derek Benoit DO Primary Care Provider [phone] Reason for Visit * Reason Comments Rash Encounter Details Date Type Department Care Team (Latest Contact Info) Description 12/17/2022 4:45 PM EDT [facility] [address] [place] [address] Alexis Delcid PA-C [address] [place] [address] Cellulitis of right upper extremity* Allergies Active Allergy Reactions Criticality Noted Date Comments Albuterol 12/13/2009 Finasteride Other (Please comment) 09/29/2013 Migraine Methylprednisolone Tachycardia 12/12/2016 documented as of this encounter (statuses as of 12/17/2022) Medications Medication Sig Dispensed Refills Start Date [...] the morning. 180 Capsule 3 11/07/2022 Active Sulfamethoxazole-T rimethoprim 800-160 MG Oral Tablet (Bactrim DS)Indications:Nataly lulitis of right upper extremity Take 1 Tablet by mouth in the morning and 1 Tablet before bedtime. Do all this for 7 days. Until gone. 14 Tablet 0 12/17/2022 12/24/2022 Active Triamcinolone Acetonide 0.1 % External Cream (Aristocort)Indica tions:Cellulitis of right upper extremity Apply topically to affected area 2 times a day. To affected area. 15 g 0 12/17/2022 Active documented as of this encounter (statuses as of 12/17/2022) Active Problems Problem Noted Date Diagnosed Date [...] as of this encounter (statuses as of 12/17/2022) Resolved Problems Problem Noted Date Diagnosed Date Resolved Date Dyslipidemia, goal LDL below 100 01/12/2010 12/12/2016 PURE HYPERCHOLESTEROLEM 01/26 Overview: Per Lipid Taxonomy. Vertigo 12/12/2016 documented as of this encounter (statuses as of 12/17/2022) Immunizations Name Administration Dates Next Due COVID-19 [...] Date Smoking Tobacco: Never Smokeless Tobacco: Never Tobacco Cessation:Counseling Given: Yes Alcohol Use Standard Drinks/Week Comments No 0 (1 standard drink = 0.6 oz pur e alcohol) PHQ-2 Answer Date Recorded PHQ Adult Total Score 0 02/07/2022 Hunger Vital Sign Answer Date Recorded Within the past 12 months, y ou worried that your food would run out before you got the money to buy more. Never true 02/08/20 Within the past 12 months, t he [...] on file documented as of this encounter Last Filed Vital Signs Vital Sign Reading Time Taken Comments Blood Pressure 160/90 12/17/2022 3:36 PM EDT Pulse 90 12/17/2022 3:36 PM EDT Temperature 36.3 C (97.3 F) 12/17/2022 3:36 PM ED T Respiratory Rate 13 12/17/2022 3:36 PM EDT Oxygen Saturation 97% 12/17/2022 3:36 PM EDT Inhaled Oxygen Concentration - - Weight 79.7 kg (175 lb 12.8 oz) 12/17/2022 3:36 PM EDT Height - - Body Mass Index 30.18 08/08/2022 8:13 AM EDT documented in this encounter Patient Instructions * Patient Instructions* Alexis Delcid PA-C - 12/17/2022 4:13 PM EDT PATIENT INSTRUCTIONS: FOLLOW-UP Contact PCP for appointment within 2-3 days. If you are unable to reach your PCP, you can return [facility] for re-evaluation. When you start treatment, the cellulitis (soft tissue infection) may initially worsen for a day before it stabilizes then starts to improve. You may notice continued fever, fatigue, feeling ill and some increase in redness for the first 24 hours. However, if you developworsening redness (significantly beyond the borders marked at your visit today), severe pain, high fevers or shaking chills, please go the nearest ER for evaluation. GENERAL RECOMMENDATIONS If you were prescribed an antibiotic, please finish all of it as directed - do not stop before finished even if you are feeling better. Maintain good skin hygiene. Wear support stockings to decrease edema of your legs (if indicated). If you are diabetic, please monitor your sugars closely and notify your PCP for any significant elevations beyond your baseline. PATIENT EDUCATION Practice good skin hygiene, especially with minor cuts, and report skin changes early. Be sure to wash your hands after any contact with the infected area. Some patients are just slower to respond totreatment. Risk factors for slow response including being female, having heart disease or having a higher BMI (being obese). For every 50 lbs someone is overweight, we add a day to the expected resolution time. documented in this encounter Progress Notes * Alexis Delcid PA-C - 12/17/2022 4:11 PM EDT Nursing Notes: Loraine Larson, GURMEET 12/17/22 1536 Signed Lesli Love is a 82 year old male who presents to clinic today for... Main Symptoms:spot on right upper arm How lon weeks Tried: cream Pt accompanied by: self HPI 82 year old male presents for evaluation of possible cellulitis. Patient was accompanied by Self. Location: RUE Symptoms include: redness, warmth, swelling, and itching Symptoms started 2 weeks ago Symptoms are: gradually worsening Patient denies: drainage, fever, chills, and swollen lymph nodes Prior trauma or injury to the area? Yes, explain: thinks maybe was scratched there while doing yardwork Any prior history of similar symptoms? No History of any type of resistant bacteria (i.e. MRSA, VRE, etc)? 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 no Modifying factors? Yes, explain: was using OTC anti itch cream, helps the itch mildly ROS: See HPI for pertinent positives and negatives. Review of patient's allergies indicates: Allergen Reactions Albuterol Finasteride Other (Please comment) Migraine Medrol [Methylprednisolone] Tachycardia Current Outpatient Medications Medication Sig Dispense Refill PreserVision/Lutein Oral Capsule Take 1 Capsule by mouth in the morning. Metamucil Smooth Texture 28.3 % Oral Powder (Psyllium) Take by mouth. Rosuvastatin Calcium 5 MG Oral Tablet (Crestor) Take 1 Tablet by mouth in the morning. 90 Tablet 3 Docusate Sodium 100 MG Oral Capsule (Colace) Take 1 Capsule by mouth in the morning and 1 Capsule before bedtime. 60 Capsule 11 Dutasteride 0.5 MG Oral Capsule (Avodart) Take 1 Capsule by mouth in the morning. 90 Capsule 3 Tamsulosin HCl 0.4 MG Oral Capsule (Flomax) Take 2 Capsules by mouth in the morning. 180 Capsule 3 Sulfamethoxazole-Trimethoprim 800-160 MG Oral Tablet (Bactrim DS) Take 1 Tablet by mouth in the morning and 1 Tablet before bedtime. Do all this for 7 days. Until gone. 14 Tablet 0 Triamcinolone Acetonide 0.1 % External Cream (Aristocort) Apply topically to affected area 2 times a day. To affected area. 15 g 0 Polyethylene Glycol 3350 17 GM/SCOOP Oral Powder Take 17 g by mouth in the morning. (Patient not taking: Reported on 10/24/2022) Esomeprazole Magnesium 20 MG Oral Tablet Delayed Release Take by mouth . (Patient not taking: Reported on 10/24/2022) No current facility-administered medications for this visit. Past Medical History: Diagnosis Date Goiter Hiatal hernia on CXR 2018 Vertigo Past Surgical History: Procedure Laterality Date ARTHROPLASTY KNEE TOTAL Left 08/20/2019 COLONOSCOPY THRU STOMA, W/BIOPSY 02/2004 diverticulosis COLONOSCOPY, DIAGNOSTIC (RECTUM) 08/13/2017 diverticulosis, repeat 10 yrs/COLONOSCOPY FLEXIBLE PROXIMAL DIAGNOSTIC performed by Fercho Ocasio MD at ENDOSCOPY [facility] COLORECTAL CANCER SCREEN;W/FLE 1978 Negative flex/sigmoidoscopy CYSTO/URETERO W/LITHOTRIPSY Right 09/21/2017 CYSTOURETHROSCOPY URETEROSCOPY WITH LITHOTRIPSY AND STENT INSERTION performed by Kym Caballero MD at [facility] CYSTOURETERO W/LITHOTRIPSY Right 09/28/2017 CYSTOURETHROSCOPY URETEROSCOPY WITH LITHOTRIPSY performed by Kym Caballero MD at OR [facility] EGD, FLEXIBLE, W/BIOPSY 03/02 gastric reflux. hiatus hernia HEMORRHOIDECTOMY, SIMPLE, 1 COLUMN 1970' NEEDLE BIOPSY OF THYROID GLAND 11/16/2011 Benign adenomatoid nodule NEEDLE/PUNCH BIOPSY OF PROSTATE 10-23-06 Prostate,Needle/Punch Biopsy REMOVAL OF APPENDIX SKIN GRAFT EA ADDIT'L 100SQ CM skin graft to right arm as a yout due to wringer washer injury UPPER GI ENDOSCOPY/EXAM Findings c/w reflux esophagitis; bx negative for H. pylori or cancerous findings US HEAD AND NECK 11/2012 no change from prior studies Social History Tobacco Use Smoking status: Never Smokeless tobacco: Never Substance Use Topics Alcohol use: No Vaping/E-Cigarette Use Vaping/E-Cigarette Use Never User Vaping/E-Cigarette Substances Vaping/E-Cigarette Devices PHYSICAL EXAM BP 160/90 | Pulse 90 | Temp 36.3 C (97.3 F) | Resp 13 | Wt 79.7 kg (175 lb 12.8 oz) | SpO2 97% | BMI 30.18 kg/m | BSA 1.9 m General: awake, alert, no apparent distress Eyes: no proptosis, no periorbital inflammation or soft tissue edema, no orbital cellulitis Lungs: clear to auscultation, no rhonchi, no wheezes, and no crackles Heart: regular rate, regular rhythm, no murmurs , no rubs, and no gallops Skin of RUE: 2 cm x 3 cm area of erythema with warmth and without localized pain and tenderness. Induration is present. Drainage is not present. Fluctuation is not present. Skin does not have peau d'orange appearance. Lymph nodes: Regional lymphadenopathy is absent . ASSESSMENT/PLAN Cellulitis of right upper extremity (Primary) - Sulfamethoxazole-Trimethoprim 800-160 MG Oral Tablet (Bactrim DS); Take 1 Tablet by mouth in the morning and 1 Tablet before bedtime. Do all this for 7 days. Until gone. - Triamcinolone Acetonide 0.1 % External Cream (Aristocort); Apply topically to affected area 2 times a day. To affected area. Follow Up: Return for Patient to follow up with Primary Care Provider as directed. | For: Patient to follow up with Primary Care Provider as directed Patient instructed to contact Primary Care Provider for follow-up within 48-72 hours. Can return to[facility] if unable to reach Primary Care Provider and symptoms not improving. To the ER if worsening redness, pain, high fevers/shaking chills. The border of erythema was outlined to aid in assessing response to therapy if necessary. Patient goals for plan of care were discussed Patient Instructions PATIENT INSTRUCTIONS: FOLLOW-UP Contact PCP for appointment within 2-3 days. If you are unable to reach your PCP, you can return [facility] for re-evaluation. When you start treatment, the cellulitis (soft tissue infection) may initially worsen for a day before it stabilizes then starts to improve. You may notice continued fever, fatigue, feeling ill and some increase in redness for the first 24 hours. However, if you developworsening redness (significantly beyond the borders marked at your visit today), severe pain, high fevers or shaking chills, please go the nearest ER for evaluation. GENERAL RECOMMENDATIONS If you were prescribed an antibiotic, please finish all of it as directed - do not stop before finished even if you are feeling better. Maintain good skin hygiene. Wear support stockings to decrease edema of your legs (if indicated). If you are diabetic, please monitor your sugars closely and notify your PCP for any significant elevations beyond your baseline. PATIENT EDUCATION Practice good skin hygiene, especially with minor cuts, and report skin changes early. Be sure to wash your hands after any contact with the infected area. Some patients are just slower to respond totreatment. Risk factors for slow response including being female, having heart disease or having a higher BMI (being obese). For every 50 lbs someone is overweight, we add a day to the expected resolution time. Alexis Delcid PA-C [facility] [address] [place] [id number] documented in this encounter Nursing Notes * Loraine Larson LPN - 12/17/2022 3:35 PM EDT Lesli Love is a 82 year old male who presents to clinic today for... Main Symptoms:spot on right upper arm How lon weeks Tried: cream Pt accompanied by: self documented in this encounter Plan of Treatment Upcoming Encounters Date Type Department Care Team (Late st Contact Info) Description 02/23/2023 7:45 AM EST Office Visit Otolaryngology [facility] [address] [place] [address] Peg Bridges MD [address] [place] [address] 05/09/2023 10:15 AM EDT Office Visit Urology Candida Kumar [address] [place] [address] [place] [address] Lazaro Frazier Jr., MD [address] [place] [address] [place] [address] Scheduled Procedures Name Priority Associated Diagnoses Date/Ti me COLONOSCOPY FLEXIBLE PROXIMA L DIAGNOSTIC Recall Encounter for screening colonoscopy Health Maintenance Due Date Last Done Comments COVID-19 Vaccine ( season) 2022 05/27/2021, 12/20/2020, 05/08/2020, Additional history exists Influenza Vaccine (FLU shot) (#1) 2022 11/24/2021, 11/24/2020, 10/21/2019, Additional history exists Depression Screening 02/07/2023 02/07/2022 HbA1c 02/08/2023 02/08/2022, 0708/2020, 07/30/2019 DTaP,Tdap,and Td Vaccines (3 - Td [...] as of this encounter Visit Diagnoses Diagnosis Cellulitis of right upper extremity- Primary Cellulitis and abscess of upper arm and forearm documented in this encounter Advance Directives Latest [...] and were consensually agreed upon. Care Teams Joiner Relationship Specialty Start Date End Date Derek Benoit DO [address] [place] [address] PCP - General Family Medicine 09/23/20 documented as of this encounter"
--- OUTSIDE RECORDS SUMMARY | 2023-02-25 14:10 | External Medical Summary | Summary of Care ---
Author Name Unknown Organization [facility] Address [address] [place] [address] Phone [phone] Care Team Providers Care Shoe Ironer Name Role Phone Unavailable Primary Care Provider Unavailabl e Reason for Visit * Reason Comments Follow Up 6 month follow up Cerumen Impaction Encounter Details Date Type Department Care Team (Late st Contact Info) Description 02/23/2023 7:45 AM EST Office Visit [facility] [address] [place] [address] Peg Bridges MD [address] [place] [address] Bilateral impacted cerumen* Allergies Active Allergy Reactions Criticality Noted Date Comments Albuterol 12/13/2009 Finasteride Other (Please comment) 09/29/2013 Migraine Methylprednisolone Tachycardia 12/12/2016 documented as of this encounter (statuses as of 02/23/2023) Medications Medication Sig Dispensed Refills Start Date [...] MG Oral Tablet Delayed Release Take by mouth. 0 Active Rosuvastatin Calcium 5 MG Oral [...] as of this encounter (statuses as of 02/23/2023) Active Problems Problem Noted Date Diagnosed Date [...] as of this encounter (statuses as of 02/23/2023) Resolved Problems Problem Noted Date Diagnosed Date Resolved Date Dyslipidemia, goal LDL below 100 01/12/2010 12/12/2016 PURE HYPERCHOLESTEROLEM 01/26 Overview: Per Lipid Taxonomy. Vertigo 12/12/2016 documented as of this encounter (statuses as of 02/23/2023) Immunizations Name Administration Dates Next Due COVID-19 mRNA, LNP-s, No Pre serve, 2-Dose Series (Moderna) 05/08/2020,03/27/2020 COVID-19, mRNA, LNP-s, PF, B ooster, 100mcg/0.5mg (Moderna) 05/27/2021,12/20/2020 H1N1 2009 Influenza, IM 01/26/2009 Pneumococcal Conjugate Vacc, 13 Valent (Prevnar) 06/22/2014 Pneumococcal Polysaccharide PPV23 (Pneumovax) 11/19/2008 Season Influenza, Quad, PF, Adjuvanted, 65+ Yrs, IM (FLUAD) 10/21/2019 Seasonal Influenza, PF, 6 M & above, IM , (FluLaval or Fluzone) 10/21/2019,11/22/2017 Seasonal Influenza, Quadriva lent Hd (Fluzone [...] Never Smokeless Tobacco: Never Tobacco Cessation:Counseling Given: Not Answered Alcohol Use Standard Drinks/Week Comments No 0 [...] Sign Reading Time Taken Comments Blood Pressure - - Pulse - - Temperature 36.1 C (96.9 F) 02/23/2023 8:04 AM ES T Respiratory Rate - - Oxygen Saturation - - Inhaled Oxygen Concentration - - Weight 81 kg (178 lb 8 oz) 02/23/2023 8:04 AM ES T Height 162.6 cm (5' 4") 02/23/2023 8:04 AM EST Body Mass Index 30.64 02/23/2023 8:04 AM EST documented in this encounter Progress Notes * Peg Bridges MD - 02/23/2023 7:45 AM EST Nursing Notes: Jinny Oh LPN 02/23/23 0807 Signed Pt presents today for cerumen removal from left ear but does want the right checked as well. History of Present Illness This 80 year old male is seen at the request of Derek Arrieta DO for follow up of bilateral cerumen impaction. The patient reported he is doing well. He feels that she does have cerumen in his left ear and feels his hearing is muffled. He denied otalgia and otorrhea. The patient also noted a lump under his left armpit for the next few months. The patient denied recent illness. He denied fever, chills, weight loss, and night sweats. Medical History Patient Active Problem List Diagnosis Code Gastroesophageal [...] Elevated prostate specific antigen (PSA) R97.20 Past Medical History: Diagnosis Date Goiter Hiatal hernia on CXR 2017 Vertigo Past Surgical History: Procedure Laterality Date ARTHROPLASTY KNEE TOTAL Left 08/20/2019 COLONOSCOPY THRU STOMA, W/BIOPSY 02/2004 diverticulosis COLONOSCOPY, DIAGNOSTIC (RECTUM) 08/13/2017 diverticulosis, repeat 10 yrs/COLONOSCOPY FLEXIBLE PROXIMAL DIAGNOSTIC performed by Fercho Ocasio MD at ENDOSCOPY [facility] COLORECTAL CANCER SCREEN;W/FLE 1978 Negative flex/sigmoidoscopy CYSTO/URETERO W/LITHOTRIPSY Right 09/21/2017 CYSTOURETHROSCOPY URETEROSCOPY WITH LITHOTRIPSY AND STENT INSERTION performed by Kym Caballero MD at OR [facility] CYSTOURETERO W/LITHOTRIPSY Right 09/28/2017 CYSTOURETHROSCOPY URETEROSCOPY WITH LITHOTRIPSY performed by yKm Caballero MD at OR [facility] EGD, FLEXIBLE, W/BIOPSY 03/02 gastric reflux. hiatus hernia HEMORRHOIDECTOMY, SIMPLE, 1 COLUMN 1969' NEEDLE BIOPSY OF THYROID GLAND 11/16/2011 Benign adenomatoid nodule NEEDLE/PUNCH BIOPSY OF PROSTATE 10-23-06 Prostate,Needle/Punch Biopsy REMOVAL OF APPENDIX SKIN GRAFT EA ADDIT'L 100SQ CM skin graft to right arm as a yout due to wringer washer injury UPPER GI ENDOSCOPY/EXAM Findings c/w reflux esophagitis; bx negative for H. pylori or cancerous findings US HEAD AND NECK 11/2012 no change from prior studies Family History Problem Relation Age of Onset No Past Hx Father age 81- uncertain causes No Past Hx Mother Neurological Disorder Brother Parkinson's Disease No Past Hx Brother No Past Hx Brother No Past Hx Brother No Past Hx Brother No Past Hx Brother No Past Hx Sister No Past Hx Sister No Past Hx Sister Social History Tobacco Use Smoking status: Never Smokeless tobacco: Never Substance Use Topics Alcohol use: No Vaping/E-Cigarette Use Vaping/E-Cigarette Use Never User Vaping/E-Cigarette Substances Vaping/E-Cigarette Devices Medications Current Outpatient Medications Medication Sig Dispense Refill PreserVision/Lutein Oral Capsule Take 1 Capsule by mouth in the morning. Metamucil Smooth Texture 28.3 % Oral Powder (Psyllium) Take by mouth. Polyethylene Glycol 3350 17 GM/SCOOP Oral Powder Take 17 g by mouth in the morning. Esomeprazole Magnesium 20 MG Oral Tablet Delayed Release Take by mouth. Rosuvastatin Calcium 5 MG [...] mouth in the morning. 180 Capsule 3 Triamcinolone Acetonide 0.1 % External Cream (Aristocort) Apply topically to affected area 2 times a day. To affected area. 15 g 0 No current facility-administered medications for this visit. Allergies Review of patient's allergies indicates: Allergen Reactions Albuterol Finasteride Other (Please comment) Migraine Medrol [Methylprednisolone] Tachycardia Review of Systems Negative for constitutional, heart, lung, liver, kidney, digestive, hematologic, neurologic, rheumatologic, or endocrine complaints except as per history of present illness and past medical history Physical Exam Temp 36.1 C (96.9 F) (Tympanic) | Ht 1.626 m (5' 4") | Wt 81 kg (178 lb 8 oz) | BMI 30.64 kg/m | BSA 1.91 m General: This is a healthy appearing male who appears his stated age. The patient is alert and appropriately verbally conversant without hoarseness. Face: The face was inspected and no cutaneous masses or lesions were visualized. There was no erythema or edema noted. Facial movement was symmetric without weakness. No skin lesions were detected. IN ORDER TO BETTER EXAMINE THE EARS, THE PATIENT WAS EXAMINED USING THE OPERATING MICROSCOPE. FINDINGS ARE NOTED BELOW. Ears: Examination of the ears revealed that the auricles were normally formed with no lesions. Procedure: Cerumen removal Attention directed to the right ear. Under sally-microscopic guidance the impacted cerumen was removed with a curette atraumatically. The tympanic membrane was intact and the middle ear was healthy appearing. The same procedure was performed on the other side. Patient tolerated the procedure well. Assessment and Plan: Encounter Diagnoses Name Primary? Bilateral impacted cerumen Yes Plan: Findings and recommendations were discussed with the patient. He will folllow up for cerumen removal. Knows to use mineral oil the week before his visit with me. I spent a total of 20-29 minutes (exact time 25 mins) on the date of service in preparation, delivery, and documentation of the care provided to Lesli Love excluding any time spent in the performance of separately billed services. 02/23/2023 9:02 AM documented in this encounter Nursing Notes * Jinny Oh LPN - 02/23/2023 8:05 AM EST Pt presents today for cerumen removal from left ear but does want the right checked as well. documented in this encounter Plan of Treatment Upcoming Encounters Date Type Department Care Team (Late st Contact Info) Description 03/26/2023 3:40 PM EST Office Visit [facility] [address] [facility] [place] [address] Clarissa Driver, [address] [facility] [place] [address] 08/24/2023 9:15 AM EDT Office Visit [facility] [address] [address] Peg Bridges MD [address] [place] [address] Scheduled Procedures Name Priority Associated Diagnoses Date/Ti [...] as of this encounter Visit Diagnoses Diagnosis Bilateral impacted cerumen- Primary Impacted cerumen documented in this encounter Advance Directives Latest [...]
--- OUTSIDE RECORDS SUMMARY | 2023-02-25 14:10 | External Medical Summary | Summary of Care ---
Author Name Unknown Organization [facility] Address [address] [place] [address] Phone [phone] Care Team Providers Care Teaseler Name Role Phone Derek Benoit DO Primary Care Provider Reason for Visit * Reason Comments Follow Up Encounter Details Date Type Department Care Team Description 10/24/2022 Office Visit Urology, [place] [address], [place] [id number] Rush Velasco PA-C [address] [place] [address] BPH with obstruction/lower urinary tract symptoms*; Nocturia Allergies Active Allergy Reactions Severity Noted Date Comments Albuterol 12/13/2009 Finasteride Other (Please comment) 09/29/2013 Migraine Methylprednisolone Tachycardia 12/12/2016 documented as of this encounter (statuses as of 10/24/2022) Medications Medication Sig Dispensed Refills Start Date [...] as of this encounter (statuses as of 10/24/2022) Active Problems Problem Noted Date Elevated prostate [...] as of this encounter (statuses as of 10/24/2022) Resolved Problems Problem Noted Date Resolved Date Dyslipidemia, goal LDL below 100 01/12/2010 12/12/2016 PURE HYPERCHOLESTEROLEM 02/05/20 09 Overview: Per Lipid Taxonomy. Vertigo 12/12/2016 documented as of this encounter (statuses as of 10/24/2022) Immunizations Name Administration Dates Next Due COVID-19 mRNA, LNP-s, No Pre serve, 2-Dose Series (Moderna) 05/08/2020,03/27/2020 Covid-19 Mrna, Lnp-s, No Pre serve, Booster (Moderna) 05/27/2021,12/20/2020 H1N1 2009 Influenza, IM 01/26/2009 [...] Sign Reading Time Taken Comments Blood Pressure 152/71 10/24/2022 7:51 AM EDT Pulse 79 10/24/2022 7:51 AM EDT Temperature 36.3 C (97.4 F) 10/24/2022 7:51 AM ED T Respiratory Rate - - Oxygen Saturation - - Inhaled Oxygen Concentration - - Weight - - Height - - Body Mass Index - - documented in this encounter Progress Notes * Rush Velasco PA-C - 10/24/2022 8:25 AM EDT UROLOGY PROGRESS NOTE Name: Lesli Love Location: Urology Clinic Date: 10/24/2022 Time: 8:25 AM PCP: [place] [address] HPI: Lesli Love is a 81 year old male RTC in F/U for nocturia. I extensively reviewed the patient's record prior to the appointment. The patient presents to the clinic with a friend who provided aportion of the history. The patient was seen at [facility] two years ago. He was prescribed Flomax 0.8 mg daily. He did well. He started to have nocturia at 5-6 times a night since three months ago. The patient denies gross hematuria, dysuria, obstructive or irritative voiding complaints, flank pain, f/c, n/v/c/d. He has nohesitancy. His urine is strong. He does not have bothersome urgency. His urination at day time is normal. Past Medical History: Diagnosis Date Goiter Hiatal hernia on CXR 2017 Vertigo Past Surgical History: Procedure Laterality Date ARTHROPLASTY KNEE TOTAL Left 08/20/2019 COLONOSCOPY THRU STOMA, W/BIOPSY 02/2004 diverticulosis COLONOSCOPY, DIAGNOSTIC (RECTUM) 08/13/2017 diverticulosis, repeat 10 yrs/COLONOSCOPY FLEXIBLE PROXIMAL DIAGNOSTIC performed by Fercho Ocasio MD at ENDOSCOPY [facility] COLORECTAL CANCER SCREEN;W/FLE 1978 Negative flex/sigmoidoscopy CYSTO/URETERO W/LITHOTRIPSY Right 09/21/2017 CYSTOURETHROSCOPY URETEROSCOPY WITH LITHOTRIPSY AND STENT INSERTION performed by Kym Caballero MD at OR [facility] CYSTOURETERO W/LITHOTRIPSY Right 09/28/2017 CYSTOURETHROSCOPY URETEROSCOPY WITH LITHOTRIPSY performed by Kym Caballero MD at OR [facility] EGD, FLEXIBLE, W/BIOPSY 03/02 gastric reflux. 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 Tobacco Use Smoking status: Never Smokeless tobacco: Never Vaping Use Vaping Use: Never used Substance and Sexual Activity Alcohol use: No Drug use: No Sexual activity: Yes Other Topics Concern Not on file Social History Narrative Not on file Social Determinants of Health Financial Resource Strain: Not on file Food Insecurity: No Food Insecurity Worried About Running Out of Food in the Last Year: Never true Ran Out of Food in the Last Year: Never true Transportation Needs: Not on file Physical Activity: Not on file Stress: Not on file Social Connections: Not on file Intimate Partner Violence: Not on file Housing Stability: Not on file Family History Problem Relation Age of Onset No Past Hx Father age 81- uncertain causes No Past Hx Mother Neurological Disorder Brother Parkinson's Disease No Past Hx Brother No Past Hx Brother No Past Hx Brother No Past Hx Brother No Past Hx Brother No Past Hx Sister No Past Hx Sister No Past Hx Sister Current Outpatient Medications Medication Sig Dispense Refill PreserVision/Lutein Oral Capsule Take 1 Capsule by mouth in the morning. Metamucil Smooth Texture 28.3 % Oral Powder (Psyllium) Take by mouth. Tamsulosin HCl 0.4 MG Oral Capsule (Flomax) Take 1 Capsule by mouth in the morning. 90 Capsule 3 Rosuvastatin Calcium 5 MG Oral Tablet (Crestor) Take 1 Tablet by mouth in the morning. 90 Tablet 3 Dutasteride 0.5 MG Oral Capsule (Avodart) Take 1 Capsule by mouth in the morning. 90 Capsule 3 Polyethylene Glycol 3350 17 GM/SCOOP [...] Other (Please comment) Migraine Medrol [Methylprednisolone] Tachycardia ROS EXAM: CONSTITUTIONAL: No change in weight, No weakness, No fatigue and No fevers, sweats, or chills PULMONARY: No cough, No wheezing, No shortness of breath and No recent change in breathing CARDIOVASCULAR: No chest pain, No shortness of breath, No dyspnea on exertion, No edema GASTROINTESTINAL: No abdominal pain, No significant change in appetite and No nausea, vomiting, diarrhea, or constipation MALE: See HPI NEUROLOGIC: Normal balance and No weakness PHYSICAL EXAM: VITAL SIGNS: BP 152/71 (BP Site: Left Arm, BP Position: Sitting, BP Cuff Size: Regular) | Pulse 79 | Temp 36.3 C (97.4 F) (Tympanic) PSYCH/GENERAL APPEARANCE: no apparent distress, well - nourished, well developed MSK: no CVA tenderness RESPIRATORY: non-labored breathing CARDIAC: no edema GASTRO-INTESTINAL: soft, non - obese, non - tender, non - distended, no masses palpable NEUROLOGIC: no focal deficits and gait normal : no urethral discharge. SKIN: No obvious cyanosis or ulcerations Lab Results Component Value Date/Time PSA - [facility] 4.96 (H) 10/03/2022 08:16 AM PSA - [facility] 4.67 (H) 08/08/2022 08:55 AM PSA - [facility] 5.47 (H) 02/08/2022 08:10 AM PSA - [facility] 6.84 (H) 12/24/2020 09:51 AM PSA - [facility] 4.91 (H) 09/21/2020 11:59 AM PSA - [facility] 4.91 (H) 07/03/2017 09:16 AM PSA - [facility] 5.61 (H) 09/17/2013 10:06 AM PSA - [facility] 4.66 (H) 11/25/2012 08:26 AM PSA - [facility] 3.28 01/12/2011 09:02 AM PSA - [facility] 5.34 (H) 10/03/2010 09:55 AM PSA - [facility] 4.00 10/08/2009 08:45 AM PSA - [facility] 1.95 01/14/2001 11:08 AM PSA - [facility] 1.7 01/06/2000 02:44 PM PSA - [facility] 2.0 07/07/1996 10:00 AM PSA - [facility] MALES 07/07/1996 10:00 AM PSA - [facility] >40yrs 96.0 3.5 0.5 0.0 0.0 07/07/1996 10:00 AM PSA - [facility] <40yrs 100.0 0.0 0.0 0.0 0.0 07/07/1996 10:00 AM PSA - [facility] MALIGNANT 07/07/1996 10:00 AM PSA - [facility] DISEASES 07/07/1996 10:00 AM PSA - [facility] PROSTATE 07/07/1996 10:00 AM PSA - [facility] STAGE A 60.0 30.8 7.7 0.0 1.5 07/07/1996 10:00 AM PSA - [facility] STAGE B 37.5 26.1 23.9 3.4 9.1 07/07/1996 10:00 AM PSA - [facility] STAGE C 19.7 23.7 30.3 13.2 13.2 07/07/1996 10:00 AM PSA - [facility] STAGE D 14.7 11.8 16.2 10.3 47.1 07/07/1996 10:00 AM PSA - [facility] DISTRIBUTION OF PSA VALUES 07/07/1996 10:00 AM PSA - [facility] GENITO- 07/07/1996 10:00 AM PSA - [facility] URINARY 88.3 10.0 1.7 0.0 0.0 07/07/1996 10:00 AM PSA - [facility] NONMALIGNANT 07/07/1996 10:00 AM PSA - [facility] DISEASES 07/07/1996 10:00 AM PSA - [facility] BPH 78.5 16.3 4.3 1.0 0.0 07/07/1996 10:00 AM PSA - [facility] PROSTA- 07/07/1996 10:00 AM PSA - [facility] DEVAN 81.2 12.5 6.2 0.0 0.0 07/07/1996 10:00 AM PSA - [facility] GENITO- 07/07/1996 10:00 AM PSA - [facility] URINARY 86.1 8.9 5.0 0.0 0.0 07/07/1996 10:00 AM PSA - [facility] RENAL 87.3 10.8 2.0 0.0 0.0 07/07/1996 10:00 AM PSA - [facility] 07/07/1996 10:00 AM PSA - [facility] CIRRHOSIS 91.4 8.6 0.0 0.0 0.0 07/07/1996 10:00 AM PSA - [facility] 07/07/1996 10:00 AM PSA - [facility] 07/07/1996 10:00 AM IN THIS STUDY, 98% OF THE SPECIMENS FROM NORMAL MALES(n=397) HAD VALUES OF 4.0ng/mL OR LESS. PSA - [facility] PERCENT(%) 07/07/1996 10:00 AM PSA - [facility] 0-4.0 4.1-10 10.1-30 30.1-60 >60 07/07/1996 10:00 AM PSA - [facility] ng/mL ng/mL ng/mL ng/mL ng/mL 07/07/1996 10:00 AM PSA - [facility] 07/07/1996 10:00 AM PSA - [facility] HEALTHY 07/07/1996 10:00 AM PSA - [facility] SUBJECTS 07/07/1996 10:00 AM PSA SCREENING 4.97 (H) 09/20/2012 11:45 AM PSA SCREENING 3.36 10/03/2011 08:44 AM PSA SCREENING 4.65 (H) 11/09/2008 10:49 AM PSA SCREENING 4.73 (H) 11/11/2007 12:14 PM PSA SCREENING 2.88 08/30/2006 01:11 PM Images: Non recent. Impression: 81 year old male with BPH and LUTS for years. He takes Flomax 0.8 mg and he did well. He developed nocturia at 5-6 times a night in the past three months. His urine stream is decent and he has no troubles for urination at day time. Plan: 1. He can take Flomax 0.8 mg at evening. 2. Add dutasteride 0.5 mg daily. 3. Return in three months. Rush Velsaco PA-C 8:25 AM 10/24/2022 documented in this encounter Plan of Treatment Upcoming Encounters Date Type Specialty Care Team Description 11/13/2022 Office Visit Urology Karin Beckford, Lazaro Jiménez MD [address] [facility] [address] [address] 01/30/2023 Office Visit [facility] [address] [facility] [address] 02/23/2023 Office Visit Otolaryngology Peg Bridges MD [address] [place] [address] Scheduled Procedures Name Priority Associated Diagnoses Date/Ti me COLONOSCOPY FLEXIBLE PROXIMA L DIAGNOSTIC Recall Encounter for screening colonoscopy Health Maintenance Due Date Last Done Comments COVID-19 Vaccine (5 - Moderna series) 07/22/2021 05/27/2021, 12/20/2020, 05/08/2020, Additional history exists Influenza Vaccine (FLU shot) (#1) 2022 11/24/2021, 11/24/2020, 10/21/2019, Additional history exists Depression Screening, Annual for Pts 12 and Over 02/07/2023 02/07/2022 HbA1c 02/08/2023 02/08/2022, 08/27, 07/30/2019 [...] Not on filedocumented as of this encounter Procedures Procedure Name Priority Date/Time Associated Diagnosis Comments URINALYSIS, POINT OF CARE FRANCINE 10/24/2022 7:56 AM EDT documented in this encounter Results * (ABNORMAL) URINALYSIS, POINT OF CARE (10/24/2022 7:56 AM EDT) Color, Urine Yellow Light Yellow, Yellow 10/24/2022 7:59 AM EDT [facility] Clarity, Urine Clear Clear 10/24/2022 7:59 AM EDT [facility] Glucose, Urine Negative Negative mg/dL 10/24/2022 7:59 AM EDT [facility] Bilirubin, Urine Negative Negative 10/24/2022 7:59 AM EDT [facility] Ketone, Urine Trace(A) Negative mg/dL 10/24/2022 7:59 AM EDT [facility] Specific [place], Urine 1.025 1.003 - 1.030 10/24/2022 7:59 AM EDT [facility] Blood, Urine Trace-lysed( A) Negative 10/24/2022 7:59 AM EDT [facility] pH, Urine 6.0 5.0, 5.5, 6.0, 6.5, 7.0, 7.5 units 10/24/2022 7:59 AM EDT [facility] Protein, Urine Negative Negative mg/dL 10/24/2022 7:59 AM EDT [facility] Urobilinogen, Urine 0.2 0.2, 1.0 mg/dL 10/24/2022 7:59 AM EDT [facility] Nitrite, Urine Negative Negative 10/24/2022 7:59 AM EDT [facility] Esterase, Urine Negative Negative 10/24/2022 7:59 AM EDT [facility] Urine 10/24/2022 7:56 AM EDT 10/24/2022 7:59 AM EDT Rush Velasco PA-C LAB POINT OF CARE TE ST DOCKED DEVICE UNSOLICITED RESULTS [facility] [address] [place] [address] documented in this encounter Visit Diagnoses Diagnosis BPH with [...] and were consensually agreed upon. Care Teams Teaseler Relationship Specialty Start Date End Date Derek Benoit DO [address] [place] [address] PCP - General Family Medicine 09/23/20 documented as of this encounter"
--- OUTSIDE RECORDS SUMMARY | 2023-02-25 14:10 | External Medical Summary | Summary of Care ---
Author Name Unknown Organization [facility] Address [address] [place] [address] Phone [phone] Care Team Providers Care Electronics Mechanic Name Role Phone Derek Benoit DO Primary Care Provider [phone] Reason for Referral * Evaluate & Treat - Unlimited Visits (Within 10 days (routine)) - Pending Review Specialty Diagnoses / Procedures Referred By Brett fish Referred To Contact Urology Diagnoses BPH with obstruction/lower urinary tract symptoms Urinary frequency Maylin Sanabria CRNP [address] [place] [address] Referral ID Status Reason Start Date Expiration Date Visits Requested Visits Authorized [id number] Pending Review Specialty Services Required 10/04/[phone] Question Answer Referral Priority Within 10 days (routine) What is the patient being referred for? BPH Encounter Details Date Type Department Care Team Description 10/04/2022 Telephone Family Practice [facility] [address] [place] [address] Maylin Sanabria CRNP [address] [place] [address] Allergies Active Allergy Reactions Severity Noted Date Comments Albuterol 12/13/2009 Finasteride Other (Please comment) 09/29/2013 Migraine Methylprednisolone Tachycardia 12/12/2016 documented as of this encounter (statuses as of 2022) Medications Medication Sig Dispensed Refills Start Date End Date Status PreserVision/Lut ein Oral Capsule Take 1 Capsule by mouth in the morning. 0 Active Metamucil Smooth Texture 28.3 % Oral Powder (Psyllium) Take by mouth. 0 Active Polyethylene Glycol 3350 17 GM/SCOOP Oral Powder Take 17 g by mouth in the morning. 0 Active Esomeprazole Magnesium 20 MG Oral Tablet Delayed Release Take by mouth . 0 Acti ve Rosuvastatin Calcium 5 MG Oral Tablet (Crestor)Indicat ions:Dyslipidemi a Take 1 Tablet by mouth in the morning. 90 Tablet 3 08/08/2022 Active Docusate Sodium 100 MG Oral Capsule (Colace) Take 1 Capsule by mouth in the morning and 1 Capsule before bedtime. 60 Capsule 11 10/03/2022 Active Additional Information Patient not taking.Reported on 10/24/2022 Tamsulosin HCl 0.4 MG Oral Capsule (Flomax)Indicati ons:BPH with obstruction/lowe r urinary tract symptoms Take 1 Capsule by mouth in the morning. 90 Capsule 3 08/08/2022 3 Discontinued documented as of this encounter (statuses as of 2022) Active Problems Problem Noted Date Elevated prostate [...] as of this encounter (statuses as of 2022) Resolved Problems Problem Noted Date Resolved Date Dyslipidemia, goal LDL below 100 01/12/2010 12/12/2016 PURE HYPERCHOLESTEROLEM 02/05/20 Overview: Per Lipid Taxonomy. Vertigo 12/12/2016 documented as of this encounter (statuses as of 2022) Immunizations Name Administration Dates Next Due COVID-19 [...] encounter Miscellaneous Notes * Telephone Encounter - Pepper Lucas - 10/04/2022 5:33 PM EDT Spoke with patient, urology appt scheduled will get labs done the same day * Telephone Encounter - DARRYL Mancini - 10/04/2022 1:41 PM EDT Spoke to patient- PSA is just slightly increased from [place] Continue flomax but move to morning Recommend urology Continue colace for constipation Kidneys and electrolytes normal Blood count showing anemia is slightly worse. Recommend recheck in a 1 month. Please schedule labs for 1 month and urology visit. l documented in this encounter Plan of Treatment Upcoming Encounters Date Type Specialty Care Team Description 02/23/2023 Office Visit Otolaryngology Peg Bridges MD [address] [address] 05/09/2023 Office Visit Urology Karin Beckford, Lazaro Jiménez MD [address] [place] [address] [place] [address] [address] Scheduled Orders Name Type Priority Associated Diagnoses Orde r Schedule CBC WITH WBC DIFFERENTIAL AND ANEMIA REFLEX WORKUP Lab Routine Iron deficiency anemia, unspecified iron deficiency anemia type Expected: 11/04/2022 (Approximate), Expires: 10/05/2023 Scheduled Procedures Name Priority Associated Diagnoses Date/Ti me COLONOSCOPY FLEXIBLE PROXIMA L DIAGNOSTIC Recall Encounter for screening colonoscopy Scheduled Referrals Name Type Priority Associated Diagnoses Orde r Schedule UROLOGY REFERRAL OP Referral Within 10 da ys (routine) BPH with obstruction/lower urinary tract symptoms Urinary frequency Ordered: 10/04/2022 Health Maintenance Due Date Last Done Comments [...] as of this encounter Visit Diagnoses Diagnosis Iron deficiency anemia, unspecified iron deficiency anemia type- Primary BPH with obstruction/lower urinary tract symptoms Hypertrophy of prostate with urinary obstruction and other lower urinary tract symptoms (LUTS) Urinary frequency documented in this encounter Advance Directives Latest [...] and were consensually agreed upon. Care Teams Electronics Mechanic Relationship Specialty Start Date End Date Derek Benoit DO [address] [place] [address] PCP - General Family Medicine 09/23/20 documented as of this encounter
--- OUTSIDE RECORDS SUMMARY | 2023-02-25 14:10 | External Medical Summary | Summary of Care ---
Author Name Unknown Organization [facility] Address [address] [place] [address] Phone [phone] Care Team Providers Care Tariff Supervisor Name Role Phone Derek Benoit DO Primary Care Provider [phone] Reason for Visit * Reason Comments Follow Up Encounter Details Date Type Department Care Team Description 10/24/2022 Office Visit Urology, [place] [address] [place] [address], [place] [id number] Rush Velasco PA-C [address] [place] [address] BPH with obstruction/lower urinary tract [...] the history. The patient was seen at [facility] two years ago. He was prescribed Flomax [...] performed by Fercho Ocasio MD at ENDOSCOPY [facility] COLORECTAL CANCER SCREEN;W/FLE 1978 Negative flex/sigmoidoscopy CYSTO/URETERO W/LITHOTRIPSY Right 09/21/2017 CYSTOURETHROSCOPY URETEROSCOPY WITH LITHOTRIPSY AND STENT INSERTION performed by Kym Caballero MD at OR [facility] CYSTOURETERO W/LITHOTRIPSY Right 09/28/2017 CYSTOURETHROSCOPY URETEROSCOPY WITH LITHOTRIPSY performed by Kym Caballero MD at OR [facility] EGD, FLEXIBLE, W/BIOPSY 03/02 gastric reflux. 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 3. Return in three months. Rush Velasco PA-C 8:25 AM 10/24/2022 documented in this encounter Plan of Treatment Upcoming Encounters Date Type Specialty Care Team Description 11/13/2022 Office Visit Urology Karin Beckford, Lazaro Jiménez MD [address] [facility] [address] [address] 01/30/2023 Office Visit [facility] [address] [facility] [address] 02/23/2023 Office Visit Otolaryngology Peg Bridges MD [address] [place] [address] Scheduled Procedures Name Priority Associated Diagnoses Date/Ti [...] Light Yellow, Yellow 10/24/2022 7:59 AM EDT [facility] Clarity, Urine Clear Clear 10/24/2022 7:59 AM EDT [facility] Glucose, Urine Negative Negative mg/dL 10/24/2022 7:59 AM EDT [facility] Bilirubin, Urine Negative Negative 10/24/2022 7:59 AM EDT [facility] Ketone, Urine Trace(A) Negative mg/dL 10/24/2022 7:59 AM EDT [facility] Specific [place], Urine 1.025 1.003 - 1.030 10/24/2022 7:59 AM EDT [facility] Blood, Urine Trace-lysed( A) Negative 10/24/2022 7:59 AM EDT [facility] pH, Urine 6.0 5.0, 5.5, 6.0, 6.5, 7.0, 7.5 units 10/24/2022 7:59 AM EDT [facility] Protein, Urine Negative Negative mg/dL 10/24/2022 7:59 AM EDT [facility] Urobilinogen, Urine 0.2 0.2, 1.0 mg/dL 10/24/2022 7:59 AM EDT [facility] Nitrite, Urine Negative Negative 10/24/2022 7:59 AM EDT [facility] Esterase, Urine Negative Negative 10/24/2022 7:59 AM EDT [facility] Urine 10/24/2022 7:56 AM EDT 10/24/2022 7:59 AM EDT Rush Velasco PA-C LAB POINT OF CARE TE ST DOCKED DEVICE UNSOLICITED RESULTS [facility] [address] [place] [address] documented in this encounter Visit Diagnoses Diagnosis [...] and were consensually agreed upon. Care Teams Tariff Supervisor Relationship Specialty Start Date End Date Derek Benoit DO [address] [place] [address] PCP - General Family Medicine 09/23/20 documented as of this encounter"
--- OUTSIDE RECORDS SUMMARY | 2023-02-25 14:11 | External Medical Summary ---
Author Name Unknown Address Unknown Organization [id number] [address] [place] [address] Laboratory Report Ordering Provider Test Date Status SHAHBAZ RYAN 10/03/2022 08:16:30 Final Observation Date Value Abnormality Reference (Units ) Status BUN 10/03/2022 08:16:30 17 6-20 (mg/dL) Final Creatinine 10/03/2022 08:16:30 0.8 0.6-1.2 (mg/dL) Final Glomerular filtration rate/1.73 sq M.predicted [Volume Rate/Area] in Serum, Plasma or Blood by Creatinine-based formula (CKD-EPI) 10/03/2022 08:16:30 88 >=60 (mL/min) Final eGFR is calculated based on the CKD-EPI 2020 equation SODIUM 10/03/2022 08:16:30 140 135-146 (m mol/L) Final Potassium 10/03/2022 08:16:30 4.5 3.5-5.1 (m mol/L) Final Cl 10/03/2022 08:16:30 104 98-107 (mm ol/L) Final CO2 10/03/2022 08:16:30 25 22-32 (mmo l/L) Final Anion gap 10/03/2022 08:16:30 11 7-15 (mmol /L) Final Glucose 10/03/2022 08:16:30 121 Above high normal 70 -120 (mg/dL) Final Calcium 10/03/2022 08:16:30 9.1 8.4-10.2 ( mg/dL) Final Performing Location LABORATORY [facility] [address] [place] [address]
--- OUTSIDE RECORDS SUMMARY | 2023-02-25 14:11 | External Medical Summary ---
Author Name Unknown Address Unknown Organization [facility] [address] [place] [address] Laboratory Report Ordering Provider Test Date Status SHAHBAZ RYAN 10/03/2022 08:16:30 Final Observation Date Value Abnormality Reference (Units ) Status SYNC LEUKOCYTES IN BLOOD BY AUTOMATED COUNT 10/03/2022 08:16:30 5.05 4.00-10.80 (K/uL) Final Segs 10/03/2022 08:16:30 62.0 40.0-75.0 (%) Final Lymphs % 10/03/2022 08:16:30 27.1 18.0-42.0 (%) Final Monos 10/03/2022 08:16:30 9.7 1.0-11.0 (%) Final Eosinophils 10/03/2022 08:16:30 0.8 0.0-6.0 (%) Final Basos 10/03/2022 08:16:30 0.4 0.0-2.0 (%) Final Absolute Segs 10/03/2022 08:16:30 3.13 1.80-7.70 (K/uL) Final Lymphs, absolute 10/03/2022 08:16:30 1.37 1.00-4.80 (K/ul) Final Monos, Abs 10/03/2022 08:16:30 0.49 0.00-1.10 (K/uL) Final Eos, Abs 10/03/2022 08:16:30 0.04 0.00-0.70 (K/uL) Final Basos, Abs 10/03/2022 08:16:30 0.02 0.00-0.20 (K/uL) Final Performing Location [facility] [place] [address]
--- OUTSIDE RECORDS SUMMARY | 2023-02-25 14:11 | External Medical Summary | Summary of Care ---
Author Name Unknown Organization [facility] Address [address] [place] [address] Phone [phone] Care Team Providers Care Manager [employer] Name Role Phone Derek Benoit DO Primary Care Provider [phone] Reason for Visit * Reason Comments Urinary Tract Problem X 1 month, up duri ng night to urinate at least 6 times, but no problems during the day. Encounter Details Date Type Department Care Team Description 10/03/2022 Office Visit Family Practice [facility] [address] [place] [address] Maylin Sanabria CRNP [address] [place] [address] Nocturia*; BPH with obstruction/lower urinary tract symptoms; Constipation, unspecified constipation type; Irregularly irregular pulse rhythm Allergies Active Allergy Reactions Severity Noted Date Comments Albuterol 12/13/2009 Finasteride Other (Please comment) 09/29/2013 Migraine Methylprednisolone Tachycardia 12/12/2016 documented as of this encounter (statuses as of 10/03/2022) Medications Medication Sig Dispensed Refills Start Date [...] Release Take by mouth . 0 Active Tamsulosin HCl 0.4 MG Oral Capsule (Flomax)Indications: BPH with obstruction/lower urinary tract symptoms Take 1 Capsule by mouth in the morning. 90 Capsule 3 08/08/2022 Active Rosuvastatin Calcium 5 MG Oral Tablet (Crestor)Indications :Dyslipidemia Take 1 Tablet by mouth in the morning. 90 Tablet 3 08/08/2022 Active Docusate Sodium 100 MG Oral Capsule (Colace) Take 1 Capsule by mouth in the morning and 1 Capsule before bedtime. 60 Capsule 11 10/03/2022 Active documented as of this encounter (statuses as of 10/03/2022) Active Problems Problem Noted Date Elevated prostate [...] as of this encounter (statuses as of 10/03/2022) Resolved Problems Problem Noted Date Resolved Date Dyslipidemia, goal LDL below 100 01/12/2010 12/12/2016 PURE HYPERCHOLESTEROLEM 02/05/20 09 Overview: Per Lipid Taxonomy. Vertigo 12/12/2016 documented as of this encounter (statuses as of 10/03/2022) Immunizations Name Administration Dates Next Due COVID-19 mRNA, LNP-s, No Pre serve, 2-Dose Series (Moderna) 05/08/2020,03/27/2020 Covid-19 Mrna, Lnp-s, No Pre serve, Booster (Moderna) 05/27/2021,12/20/2020 H1N1 2009 Influenza, IM 01/26/2009 Pneumococcal Conjugate Vacc, 13 Valent (Prevnar) 06/22/2014 Pneumococcal Polysaccharide PPV23 (Pneumovax) 11/19/2008 Seasonal Influenza, Quadriva lent Hd (Fluzone Hd) 11/24/2020 Seasonal Influenza, Quadrivalent, ID 11/24/2021 Seasonal Influenza, Quadriva lent, No Preserve, 6 Mons & Above, IM 10/21/2019,11/22/2017 Seasonal Influenza, Quadriva lent, No Preserve, Adjuvanted, 65+ Yrs, IM 10/21/2019 Seasonal Influenza, Quadriva lent, No Preserve, IM [...] Sign Reading Time Taken Comments Blood Pressure 144/70 10/03/2022 6:52 AM EDT Pulse 80 10/03/2022 6:52 AM EDT Temperature - - Respiratory Rate - - Oxygen Saturation - - Inhaled Oxygen Concentration - - Weight 80.1 kg (176 lb 8 oz) 10/03/2022 6:52 AM EDT Height - - Body Mass Index 30.3 08/08/2022 8:13 AM EDT documented in this encounter Progress Notes * DARRYL Mancini - 10/03/2022 7:09 AM EDT Follow up Family Medicine Visit CC: Chief Complaint Patient presents with Urinary Tract Problem X 1 month, up during night to urinate at least 6 times, but no problems during the day. History of Present Illness: Lesli Love is a 81 year old male presenting today with complaints of increased nocturia for the last 4 weeks. He reports getting up 6 times a night. He has a history of BPH and is on tamsulosin bid. Recently increased to 2 a day about 2-4 weeks ago. He starting Last PSA is at 4.67 in July 2022 which was down from 5.47 in 02/16. He is having difficulty stopping and starting stream of urine. Denies fever, chills or flank pain. He also notes that he has constipation. He is taking miralax once week. 2 times a few months ago hehas had blood in stool. 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 COLORECTAL CANCER SCREEN;W/FLE 1978 Negative flex/sigmoidoscopy CYSTO/URETERO W/LITHOTRIPSY Right 09/21/2017 CYSTOURETHROSCOPY URETEROSCOPY WITH LITHOTRIPSY AND STENT INSERTION performed by Kym Caballero MD at OR [facility] CYSTOURETERO W/LITHOTRIPSY Right 09/28/2017 CYSTOURETHROSCOPY URETEROSCOPY WITH LITHOTRIPSY performed by Kym Caballero MD at OR [facility] EGD, FLEXIBLE, W/BIOPSY 03/02 gastric reflux. hiatus [...] NECK 11/2012 no change from prior studies Outpatient Medications Marked as Taking for the 10/03/22 encounter (Office Visit) with DARRYL Mancini Medication Sig Rosuvastatin Calcium 5 MG Oral Tablet (Crestor) Take 1 Tablet by mouth in the morning. Tamsulosin HCl 0.4 MG Oral Capsule (Flomax) Take 1 Capsule by mouth in the morning. Esomeprazole Magnesium 20 MG Oral Tablet Delayed Release Take by mouth . Metamucil Smooth Texture 28.3 % Oral Powder (Psyllium) Take by mouth. Polyethylene Glycol 3350 17 GM/SCOOP Oral Powder Take 17 g by mouth in the morning. PreserVision/Lutein Oral Capsule Take 1 Capsule by mouth in the morning. Review of patient's allergies indicates: Allergen Reactions Albuterol Finasteride Other (Please comment) Migraine Medrol [Methylprednisolone] Tachycardia Most Recent Immunizations Administered Date(s) Administered COVID-19 mRNA, LNP-s, No Preserve, 2-Dose Series (Moderna) 05/08/2020 Covid-19 Mrna, Lnp-s, No Preserve, Booster (Moderna) 05/27/2021 H1N1 2009 Influenza, IM 01/26/2009 Pneumococcal Conjugate Vacc, 13 Valent (Prevnar) 06/22/2014 Pneumococcal Polysaccharide PPV23 (Pneumovax) 11/19/2008 Seasonal Influenza Virus Vaccine, Unspecified Formulation 12/23/1997 Seasonal Influenza, Quadrivalent Hd (Fluzone Hd) 11/24/2020 Seasonal Influenza, Quadrivalent, ID 11/24/2021 Seasonal Influenza, Quadrivalent, No Preserve, 6 Mons & Above, IM 10/21/2019 Seasonal Influenza, Quadrivalent, No Preserve, Adjuvanted, 65+ Yrs, IM 10/21/2019 Seasonal Influenza, Quadrivalent, No Preserve, IM 12/02/2016 Seasonal Influenza, Split, IIV3, With Preserve, Inj 11/09/2014 Seasonal Influenza, Trivalent, Adjuvanted, 65+ yrs 11/26/2018 TD - Tetanus/Diptheria (ADULT) 09/22/1996 TD, Preservative Free 01/12/2010 TDAP (age 10 and older)(Boostrix) 06/12/2020 Varicella Zoster Vaccine (Adult) 03/04/2010 Zoster Vaccine Recombinant (Shingrix) 09/27/2019 Review of Systems: Review of Systems Constitutional: Negative for chills, diaphoresis, fatigue and fever. Respiratory: Negative for shortness of breath. Cardiovascular: Negative for chest pain, palpitations and leg swelling. Gastrointestinal: Positive for blood in stool and constipation. Negative for abdominal pain, diarrhea, nausea and vomiting. Genitourinary: Positive for difficulty urinating and frequency. Negative for dysuria, flank pain, hematuria and urgency. Musculoskeletal: Negative for back pain. Neurological: Positive for light-headedness. Negative for dizziness. Psychiatric/Behavioral: Positive for sleep disturbance. Physical Exam: BP 144/70 | Pulse 80 | Wt 80.1 kg (176 lb 8 oz) | BMI 30.30 kg/m | BSA 1.9 m Physical Exam Vitals and nursing note reviewed. HENT: Head: Normocephalic. Eyes: Pupils: Pupils are equal, round, and reactive to light. Cardiovascular: Rate and Rhythm: Normal rate and regular rhythm. Pulmonary: Effort: Pulmonary effort is normal. Breath sounds: Normal breath sounds. Abdominal: General: Bowel sounds are normal. Palpations: Abdomen is soft. There is no mass. Tenderness: There is no abdominal tenderness. There is no right CVA tenderness or left CVA tenderness. Musculoskeletal: General: Normal range of motion. Cervical back: Normal range of motion. Skin: General: Skin is warm and dry. Neurological: General: No focal deficit present. Mental Status: He is alert and oriented to person, place, and time. Psychiatric: Mood and Affect: Mood normal. Behavior: Behavior normal. Thought Content: Thought content normal. Judgment: Judgment normal. Assessment and Plan: 1. Nocturia Increased the last month but has been taking a dose of tamsulosin at night Also with constipation that may be contributing R/o infection Change tamsulosin to 2 tabs in the am Consider urology - URINALYSIS, REFLEX TO MICROSCOPIC; Future - PSA; Future - CBC WITH WBC DIFFERENTIAL; Future - BASIC METABOLIC PANEL; Future - URINALYSIS, REFLEX TO MICROSCOPIC - MICROSCOPIC EXAM, URINE 2. BPH with obstruction/lower urinary tract symptoms - PSA; Future - CBC WITH WBC DIFFERENTIAL; Future - BASIC METABOLIC PANEL; Future 3. Constipation, unspecified constipation type Chronic Add colace bid 64 oz water daily 4. Irregularly irregular pulse rhythm NSR today - EKG; Future I have advised the patient to call our office incase of any worsening or new symptoms. I spent a total of 40-54 minutes (exact time 40 mins) on the date of service in preparation, delivery, and documentation of the care provided to Lesli Love excluding any time spent in the performance of separately billed services. Ce, ABDULKADIR, DARRYL [facility] * DARRYL Justin Student - 10/03/2022 7:02 AM EDT S: Pt is an 81 year old male presenting to clinic with for c/o nocturia. States he is up about 6x/night to void. He is currently taking tamsulosin BID which was ^ about a month ago. PSA in July 4.67, decreased from 5.4 in Jan 2022. Pt has a h/o BPH, high cholesterol, pre-diabetes, GERD. Takes Docusate Sodium 100 MG Oral Capsule (Colace) Rosuvastatin Calcium 5 MG Oral Tablet (Crestor) Tamsulosin HCl 0.4 MG Oral Capsule (Flomax) Esomeprazole Magnesium 20 MG Oral Tablet Delayed Release Metamucil Smooth Texture 28.3 % Oral Powder (Psyllium) Polyethylene Glycol 3350 17 GM/SCOOP Oral Powder PreserVision/Lutein Oral Capsule Does not drink or smoke. Allergies: albuterol, Medrol, finasteride Pt reports feeling well. ROS General: General: Denies headaches, fatigue, weakness, fever, chills, or feeling unwell. GI: Negative for change in stool, reflux, n/v. States he has intermittent diarrhea and constipation. Has had blood in stool a few times over the past month. Nexium controls GERD symptoms. Resp: Denies cough or SOB CV: Denies CP or palpitations : Negative for dysuria, hematuria or flank and back pain. + for difficulty starting and stopping stream and sensation of not emptying bladder. All other review of symptoms negative. O: General: VS: 144/70-80. Well nourished, male in no acute distress HEENT: ATNC, PERRLA, anicteric, negative for conjunctival injection or drainage. Neck: Supple. Negative for lymph node adenopathy. Negative for thyromegaly. CV: S1S2, irregular rhythm noted. Resp.: CTA with good excursion GI: BS +x4 quads. Negative for distention, organomegaly, rebound tenderness rigidity, or guarding A: Nocturia: CBC, UA, BMP, PSA. Will consider medication changes once UA is resulted. Irregular HR: EKG Constipation: Start Colace daily P: Office to call pt with results, will consider medication changes once UA resulted. F/u next scheduled apt, sooner if needed. documented in this encounter Plan of Treatment Upcoming Encounters Date Type Specialty Care Team Description 11/13/2022 Office Visit Urology Karin Beckford, Lazaro Jiménez MD [address] [place] [address] 02/23/2023 Office Visit Otolaryngology Peg Bridges MD [address] [place] [address] Pending Results Name Type Priority Associated Diagnoses Date /Time PSA Lab Routine Nocturia BPH with obstruction/lower urinary tract symptoms 10/03/2022 8:16 AM EDT BASIC METABOLIC PANEL Lab Routine Nocturia BPH with obstruction/lower urinary tract symptoms 10/03/2022 8:16 AM EDT Scheduled Orders Name Type Priority Associated Diagnoses Orde r Schedule PSA Lab Routine Nocturia BPH with obstruction/lower urinary tract symptoms Expected: 10/03/2022 (Approximate), Expires: 10/03/2023 BASIC METABOLIC PANEL Lab Routine Nocturia BPH with obstruction/lower urinary tract symptoms Expected: 10/03/2022 (Approximate), Expires: 10/03/2023 EKG EKG Routine Irregularly irregular pulse rhythm Expected: 10/03/2022 (Approximate), Expires: 11/04/2023 Scheduled Procedures Name Priority Associated Diagnoses Date/Ti [...] Procedure Name Priority Date/Time Associated Diagnosis Comments MICROSCOPIC EXAM, URINE STAT 10/03/2022 7:40 AM EDT Nocturia URINALYSIS, REFLEX TO MICROSCOPIC STAT 10/03/2022 7:40 AM EDT Nocturia documented in this encounter Results * (ABNORMAL) MICROSCOPIC EXAM, URINE (10/03/2022 7:40 AM EDT) RBC, Urine 3-5(A) 0 - 2 /HPF 10/03/2022 7:56 AM EDT [facility] WBC, Urine 0-2 0 - 2 /HPF 10/03/2022 7:56 AM EDT [facility] [place] [facility] Bacteria, Urine 0-25 0 - 25 /HPF 10/03/2022 7:56 AM EDT [facility] Urine Urine specimen obtained by clean catch procedure / Unknown Non-blood Collection / Unknown 10/03/2022 7:40 AM EDT 10/03/2022 7:40 AM EDT [facility] [place] [facility] [address] [facility] [address] * (ABNORMAL) URINALYSIS, REFLEX TO MICROSCOPIC (10/03/2022 7:40 AM EDT) Color, Urine Yellow Light Yellow, Yellow, Dark Yellow 10/03/2022 7:56 AM EDT [facility] Clarity, Urine Clear Clear 10/03/2022 7:56 AM EDT [facility] Glucose, Urine Negative Negative mg/dL 10/03/2022 7:56 AM EDT [facility] Bilirubin, Urine Negative Negative 10/03/2022 7:56 AM EDT [facility] Ketone, Urine Negative Negative mg/dL 10/03/2022 7:56 AM EDT [facility] Specific Logan, Urine 1.025 1.003 - 1.030 10/03/2022 7:56 AM EDT [facility] Blood, Urine Trace(A) Negative 10/03/2022 7:56 AM EDT [facility] pH, Urine 5.5 5.0 - 7.5 Units 10/03/2022 7:56 AM EDT [facility] Protein, Urine Negative Negative mg/dL 10/03/2022 7:56 AM EDT [facility] Urobilinogen, Urine 0.2 0.2, 1.0 mg/dL 10/03/2022 7:56 AM EDT [facility] Nitrite, Urine Negative Negative 10/03/2022 7:56 AM EDT [facility] Esterase, Urine Negative Negative 10/03/2022 7:56 AM EDT [facility] Urine Urine specimen obtained by clean catch procedure / Unknown Non-blood Collection / Unknown 10/03/2022 7:40 AM EDT 10/03/2022 7:40 AM EDT [facility] [place] [facility] [facility] [address] [facility] [address] documented in this encounter Visit Diagnoses Diagnosis Nocturia- Primary BPH with obstruction/lower urinary tract symptoms Hypertrophy of prostate with urinary obstruction and other lower urinary tract symptoms (LUTS) Constipation, unspecified constipation type Irregularly irregular pulse rhythm documented in this encounter Advance Directives Latest [...] and were consensually agreed upon. Care Teams Manager [employer] Sales Relationship Specialty Start Date End Date Derek Benoit DO [address] [place] [address] PCP - General Family Medicine 09/23/20 documented as of this encounter"
--- OUTSIDE RECORDS SUMMARY | 2023-02-25 14:11 | External Medical Summary ---
Author Name Unknown Address Unknown Organization : Laboratory Report Ordering Provider Test Date Status PRANAVCHU 10/24/2022 07:56:00 Final Observation Date Value Abnormality Reference (Units ) Status Color of Urine by Auto 10/24/2022 07:56:00 Yellow Light Yellow, Yellow Final Clarity, Urine 10/24/2022 07:56:00 Clear Clear Final Glucose [Mass/volume] in Urine by Automated test strip 10/24/2022 07:56:00 Negative Negative (mg/dL) Final Bilirubin.total [Presence] in Urine by Automated test strip 10/24/2022 07:56:00 Negative Negative Final Ketones [Mass/volume] in Urine by Automated test strip 10/24/2022 07:56:00 Trace Abnormal Negative (mg/dL) Final Specific gravity, Urine 10/24/2022 07:56:00 1.025 1.003-1.030 Final Hemoglobin [Presence] in Urine by Automated test strip 10/24/2022 07:56:00 Trace-lysed Abnormal Negative Final pH, Urine 10/24/2022 07:56:00 6.0 5.0, 5.5, 6.0, 6.5, 7.0, 7.5 (units) Final Protein [Mass/volume] in Urine by Automated test strip 10/24/2022 07:56:00 Negative Negative (mg/dL) Final Urobilinogen, Urine 10/24/2022 07:56:00 0.2 0.2, 1.0 (mg/dL) Final Nitrite [Presence] in Urine by Automated test strip 10/24/2022 07:56:00 Negative Negative Final Leukocyte esterase [Presence] in Urine by Automated test strip 10/24/2022 07:56:00 Negative Negative Final Performing Location
--- OUTSIDE RECORDS SUMMARY | 2023-02-25 14:11 | External Medical Summary | Summary of Care ---
Author Name Unknown Organization [facility] Address [address] [place] [address] Phone [phone] Care Team Providers Care Bronc Breaker Name Role Phone Derek Benoit DO Primary Care Provider Reason for Visit * Reason Comments Outpatient Testing Encounter Details Date Type Department Care Team Description 10/03/2022 Laboratory Laboratory, [facility] [address] [place] [address] [facility] [address] [place] [address] Nocturia; BPH with obstruction/lower urinary tract symptoms Allergies Active Allergy Reactions Severity Noted Date [...] on file documented as of this encounter Plan of Treatment Upcoming Encounters Date Type Specialty Care Team Description 11/13/2022 Office Visit Urology Karin Beckford, Lazaro Jiménez MD [address] [place] [address] 02/23/2023 Office Visit Otolaryngology Peg Bridges MD [address] [place] [address] Pending Results Name Type Priority Associated Diagnoses Date /Time PSA Lab Routine Nocturia BPH with obstruction/lower urinary tract symptoms 10/03/2022 8:16 AM EDT CBC WITH WBC DIFFERENTIAL Lab Routine Nocturia BPH with obstruction/lower urinary tract symptoms 10/03/2022 8:16 AM EDT BASIC METABOLIC PANEL Lab Routine Nocturia BPH with obstruction/lower urinary tract symptoms 10/03/2022 8:16 AM EDT CBC Lab Routine Nocturia BPH with obstruction/lower urinary tract symptoms 10/03/2022 8:16 AM EDT DIFFERENTIAL, AUTOMATED Lab Routine Nocturia BPH with obstruction/lower urinary tract symptoms 10/03/2022 8:16 AM EDT Scheduled Procedures Name Priority Associated Diagnoses Date/Ti [...] as of this encounter Visit Diagnoses Diagnosis Nocturia BPH with obstruction/lower urinary tract symptoms Hypertrophy [...] and were consensually agreed upon. Care Teams Bronc Breaker Relationship Specialty Start Date End Date Derek Benoit DO [address] [place] [address] PCP - General Family Medicine 09/23/20 documented as of this encounter
--- OUTSIDE RECORDS SUMMARY | 2023-02-25 14:11 | External Medical Summary ---
Author Name Unknown Address Unknown Organization [facility] [address] [place] [address] Laboratory Report Ordering Provider Test Date Status SHAHBAZ RYAN 10/03/2022 07:40:14 Final Observation Date Value Abnormality Reference (Units ) Status RBC, Urine 10/03/2022 07:40:14 3-5 Abnormal 0-2 (/HPF) Final WBC, Urine 10/03/2022 07:40:14 0-2 0-2 (/HPF) Final Bacteria [#/area] in Urine sediment by Microscopy high power field 10/03/2022 07:40:14 0-25 0-25 (/HPF) Final Performing Location [facility] [place] [address]
--- OUTSIDE RECORDS SUMMARY | 2023-02-25 14:11 | External Medical Summary ---
Author Name Unknown Address Unknown Organization [facility] [address] [place] [address] Laboratory Report Ordering Provider Test Date Status RUSSEL RYANIvette 10/03/2022 08:16:30 Final Observation Date Value Abnormality Reference (Units ) Status PSA 10/03/2022 08:16:30 4.96 Above high normal <4 .10 (ng/mL) Final Performing Location [facility] [address] [facility] [address]
--- OUTSIDE RECORDS SUMMARY | 2023-02-25 14:11 | External Medical Summary ---
Author Name Unknown Address Unknown Organization [facility] - [address] [facility] [address] Laboratory Report Ordering Provider Test Date Status SHAHBAZ RYAN 10/03/2022 07:40:14 Final Observation Date Value Abnormality Reference (Units ) Status Color of Urine by Auto 10/03/2022 07:40:14 Yellow Light Yellow, Yellow, Dark Yellow Final Clarity, Urine 10/03/2022 07:40:14 Clear Clear Final Glucose [Mass/volume] in Urine by Automated test strip 10/03/2022 07:40:14 Negative Negative (mg/dL) Final Bilirubin.total [Presence] in Urine by Automated test strip 10/03/2022 07:40:14 Negative Negative Final Ketones [Mass/volume] in Urine by Automated test strip 10/03/2022 07:40:14 Negative Negative (mg/dL) Final Specific gravity, Urine 10/03/2022 07:40:14 1.025 1.003-1.030 Final Hemoglobin [Presence] in Urine by Automated test strip 10/03/2022 07:40:14 Trace Abnormal Negative Final pH, Urine 10/03/2022 07:40:14 5.5 5.0-7.5 (Units) Final Protein [Mass/volume] in Urine by Automated test strip 10/03/2022 07:40:14 Negative Negative (mg/dL) Final Urobilinogen [Mass/volume] in Urine by Automated test strip 10/03/2022 07:40:14 0.2 0.2, 1.0 (mg/dL) Final Nitrite [Presence] in Urine by Automated test strip 10/03/2022 07:40:14 Negative Negative Final Leukocyte esterase [Presence] in Urine by Automated test strip 10/03/2022 07:40:14 Negative Negative Final Performing Location [facility] [place] [address] - [address] [place] [address]
--- NOTE | 2023-02-25 14:18 | ED Triage Note ---
Date of Service February 25, 2023 Provider in Triage Author: Savita Barber History of Present Illness This patient was briefly evaluated while in triage. An abbreviated physical exam was performed. This patient is a 82-year-old Male who presents to the ED for evaluation of mid to upper abdominal pain. Pain started 2-3 days ago and is located in the mid to upper abdomen. He reports abdominal distention. He has had a decreased appetite but is keeping some food down. No fevers, vomiting or changes in BMs. Physical Exam VITALS: Vitals are noted on the nurse's note and reviewed by myself. GENERAL: This is an 82-year-old male, in no acute distress, nondiaphoretic, well-developed well-nourished. HEART: Regular rate and rhythm without murmurs gallops or rubs. LUNGS: Clear to auscultation bilaterally without wheezes, rales or rhonchi. ABDOMEN: Positive bowel sounds x 4. Soft, tenderness to palpation in the periumbilical region/epigastrium NEURO: Patient was alert and oriented to person place and time. Initial orders for labs and / or imaging were placed and patient was placed in the waiting area until a bed is available. Please see further documentation for the full ED course. MDM / Impression Impression Impression: Epigastric abdominal pain, SBO (small bowel obstruction), Abdominal bloating, Hernia, hiatal
[2023-02-25 16:17] LABS: Basophils # (auto) 0.02 K/uL (0.00-0.20); Basophils % (auto) 0.3 %; Eosinophils # (auto) 0.03 K/uL (0.00-0.50); Eosinophils % (auto) 0.4 %; Hematocrit (blood only) 42.4 % (42.0-52.0); Hemoglobin 13.7 g/dl (14.0-18.0); Immature Granulocytes # (auto) 0.02 K/uL (0.01-0.20); Immature Granulocytes % (auto) 0.3 %; Lymphocytes # (auto) 1.68 K/uL (1.20-3.40); Lymphocytes % (auto) 24.7 %; Mean Corpuscular Hemoglobin 28.2 pg (25.0-34.0); Mean Corpuscular Hgb Conc 32.3 g/dL (32.0-36.0); Mean Corpuscular Volume 87.4 fL (80.0-100.0); Monocytes # (auto) 0.64 K/uL (0.11-0.59); Monocytes % (auto) 9.4 %; Neutrophils % (auto) 64.9 %; Platelet Count 196 K/uL (130-400); RDW Coefficient of Variation 14.8 % (11.5-14.5); RDW Standard Deviation 47.3 fL (36.4-46.3); Red Blood Count 4.85 M/uL (4.70-6.10); White Blood Count 6.79 K/ul (4.8-10.8)
[2023-02-25 16:35] LABS: Albumin Globulin Ratio 1.3 (0.9-2); Albumin Level 4.3 gm/dl (3.4-5.0); BUN Creatinine Ratio 17.8 (10-20); Bilirubin,Total 0.5 mg/dl (0.2-1.0); Calcium 9.1 mg/dl (8.6-10.3); Creatinine Clr Calc Pharmacy 62.1 ml/min; Est GFR (African American) 92.5 ml/min; Est GFR (Non-African American) 79.8 ml/min; Globulin 3.2 gm/dl (2.5-4.0); Potassium 3.9 mmol/L (3.5-5.1); Total Protein 7.5 gm/dl (6.0-8.3)
[2023-02-25] MEDS ORDERED: OPTIRAY 320 125ml IV ONE (16:55)
--- NOTE | 2023-02-25 16:57 | Emergency Department Note ---
History of Present Illness General Chief complaint: Abdominal Pain Stated complaint: ABDOMINAL PAIN AND DISTENSION Time Seen by Provider: 02/25/23 16:33 Source: patient, family (Son is at the bedside), RN notes reviewed and old records reviewed (11/13/22- urology office visit note for BPH) Mode of arrival: ambulatory Limitations: no limitations History of Present Illness Maximum Pain Intensity: 3 This patient is a an 82-year-old male comes in with epigastric pain and bloating for the last several days he describes as 3 out of 10 he says that she has constant. He feels distended. No trouble eating or drinking. No nausea or vomiting. He had normal bowel movements in fact he had 2 today. No blood or melena. no trauma or injury. no chest pain or shortness of breath. He does have a history of a hiatal hernia. Denies cardiac disease or diabetes. His doctor moved out of town and he is trying to get in with a new doctor Home Medications Medication Instructions Recorded Confirmed Type tamsulosin 0.4 mg capsule (Flomax) 0.8 mg PO QAM 08/14/19 06/12/20 History vit C 250 mg-vit E 90 mg-zinc 40 1 tab PO QAM 08/14/19 06/12/20 History mg-copper 1 [id number] capsule (PreserVision AREDS-2) acetaminophen 500 mg tablet 1,000 mg PO Q8 PRN Pain 08/28/19 06/12/20 History bacitracin 500 unit/gram topical 1 applic topical BID #28 grams 12/24/22 Rx ointment bacitracin 500 unit/gram topical 1 applic topical BID #28 grams 12/24/22 Rx ointment Allergies Allergy/AdvReac Type Severity Reaction Status Date / Time methylprednisolone AdvReac Mild Tachycardia Unverified 06/12/20 17:37 Past Med/Surg History Medical History (Updated 02/25/23 @ 18:36 by Bunny Soni MD) Pre-diabetes Osteoarthritis Macular degeneration BPH (benign prostatic hyperplasia) GERD (gastroesophageal reflux disease) Hyperlipidemia NO MEDS Surgical History History of colonoscopy History of arthroscopy RIGHT KNEE Hx of vasectomy History of appendectomy Hx of bilateral cataract extraction Family History Mother Diabetes Social History Smoking Status: Never smoker Second Hand Exposure: Yes (IN PAST); Do You Dip or Chew Tobacco: No; Hx Alcohol Use: No Hx Substance Use: No Preferred Language: Albanian Communication Ability: Effective Rn Case Manager Required: No Beliefs That Will Affect Care: None marital status: / Current Living Situation: Alone Feels Safe at Home: Yes Assistive Devices: None Review of Systems A total of 10 systems reviewed and were otherwise negative Physical Exam Vital Signs Vital Signs - 24 hr 02/25/23 14:17 02/25/23 18:27 02/25/23 18:28 Temperature 36.4 C L Temperature Source Oral Pulse Rate 106 H 91 H Pulse Rate [Left Apical] 88 Respiratory Rate 20 18 Respiratory Effort / Characteristics Non-Labored Spontaneous Non-Labored Spontaneous Respiratory Depth Normal Normal Respiratory Pattern Regular Blood Pressure 142/72 H Blood Pressure [Right Arm] 190/77 H Blood Pressure Mean 95 Blood Pressure Mean [Right Arm] 114 Blood Pressure Position [Right Arm] Sitting Pulse Oximetry 98 97 Oxygen Delivery Method Room Air Room Air Sepsis Recent Fever Within 48 Hours No Sepsis New/Unexplained Change in Mental Status No Sepsis Action Taken by Nursing No Action Required General: Well developed well nourished older male who appears in no acute distress, breathing comfortably on room air. Normal speech HEENT: Normal cephalic atraumatic. Pupils are equal round and reactive to light. Extraocular movements are intact. Oropharynx is pink with moist mucous membranes. No swelling of the mouth lips or tongue. Neck: Supple with a midline trachea. No meningeal signs or stiffness, no JVD or bruits. No Stridor. Chest: Clear to auscultation bilaterally. No wheezes or rhonchi. No increased work of breathing. Heart: Regular rate and rhythm without murmurs or gallops. Abdomen: Soft, mildly tender epigastric area, nondistended without rebound guarding or rigidity. Extremities: No cyanosis clubbing or edema. No calf tenderness or assymetry Spine/Back. Non tender to palpation. No CVA tenderness Skin: Good turgor without rashes. Neurologic exam: Cranial nerves two through 12 are intact. Motor and sensation are intact and symmetrical throughout. Course Administered Medications Sodium Chloride (Nss) 1,000 mls @ 999 mls/hr IV .Q1H1M ONE Stop: 02/25/23 18:38 Last Admin: 02/25/23 17:57 Dose: 999 mls/hr Documented By: COURTNEY Discontinued Medications Ioversol (Optiray 320 125ml) 91 ml IV ONCE ONE Stop: 02/25/23 16:56 Last Admin: 02/25/23 16:56 Dose: 91 ml Documented By: JESSICAK Ioversol (Optiray 320 500ml) 91 ml IV ONCE ONE Stop: 02/25/23 16:59 Last Admin: 02/25/23 16:58 Dose: 91 ml Documented By: JESSICAK Medical Decision Making Differential Diagnosis Intra-abdominal process, peptic ulcer disease, hiatal hernia, gallbladder disease, bowel obstruction, colitis, pancreatitis, aneurysm Medical Records Attestation: I reviewed the patient's medical records. Home Medications Current Medication List: was personally reviewed by me Laboratory Data Attestation: I reviewed the patient's lab results. 02/25/23 16:05 02/25/23 16:05 Lab Results 02/25/23 02/25/23 02/25/23 Range/Units 16:05 17:55 18:00 WBC 6.79 (4.8-10.8) K/ul RBC 4.85 (4.70-6.10) M/uL Hgb 13.7 L (14.0-18.0) g/dl Hct 42.4 (42.0-52.0) % MCV 87.4 (80.0-100.0) fL MCH 28.2 (25.0-34.0) pg MCHC 32.3 (32.0-36.0) g/dL RDW Std Deviation 47.3 H (36.4-46.3) fL RDW Coeff of Herbert 14.8 H (11.5-14.5) % Plt Count 196 (130-400) K/uL MPV 10.0 (9.4-12.4) fL Immature Gran % (Auto) 0.3 % Neut % (Auto) 64.9 % Lymph % (Auto) 24.7 % Upson % (Auto) 9.4 % Eos % (Auto) 0.4 % Baso % (Auto) 0.3 % Neut # (Auto) 4.40 (1.40-6.50) K/uL Lymph # (Auto) 1.68 (1.20-3.40) K/uL Upson # (Auto) 0.64 H (0.11-0.59) K/uL Eos # (Auto) 0.03 (0.00-0.50) K/uL Baso # (Auto) 0.02 (0.00-0.20) K/uL Immature Gran # (Auto) 0.02 (0.01-0.20) K/uL Sodium 137 (136-145) mmol/L Potassium 3.9 (3.5-5.1) mmol/L Chloride 102 (98-107) mmol/L Carbon Dioxide 27 (21-32) mmol/L Anion Gap 8 (3-11) BUN 16 (6-23) mg/dl Creatinine 0.90 (0.6-1.4) mg/dl Est Cr Clr Drug Dosing 62.1 ml/min Est GFR ( Amer) 92.5 ml/min Est GFR (Non-Af Amer) 79.8 ml/min BUN/Creatinine Ratio 17.8 (10-20) Glucose 117 H (70-99(Fasting)) mg/dl Lactate 1.0 (0.4-2.0) mmol/L Calcium 9.1 (8.6-10.3) mg/dl Total Bilirubin 0.5 (0.2-1.0) mg/dl AST 19 (13-39) U/L ALT 15 (7-52) U/L Alkaline Phosphatase 58 (34-104) U/L Troponin I High Sens 5.4 (0-20) pg/ml Total Protein 7.5 (6.0-8.3) gm/dl Albumin 4.3 (3.4-5.0) gm/dl Globulin 3.2 (2.5-4.0) gm/dl Albumin/Globulin Ratio 1.3 (0.9-2) Lipase 14 (11-82) U/L Urine Color Yellow Urine Appearance Clear (Clear) Urine pH 5.5 (4.5-7.5) Ur Specific [place] > 1.045 H (1.000-1.030) Urine Protein Negative (Negative) Urine Glucose (UA) Negative (Negative) Urine Ketones 1+ H (Negative) Urine Blood 1+ H (Negative) Urine Nitrite Negative (Negative) Urine Bilirubin Negative (Negative) Urine Urobilinogen Negative (Negative) Ur Leukocyte Esterase Negative (Negative) Urine WBC (Auto) 1-5 (0-5) /hpf Urine RBC (Auto) 0-4 (0-4) /hpf U Hyaline Cast (Auto) 0 (0-5) /lpf U Epithel Cells (Auto) 0-5 (0-5) /lpf Urine Bacteria (Auto) Negative (Negative) Imaging Data Attestation: I personally reviewed and interpreted this imaging study as follows: My Impression: Chest x-rayno acute infiltrate, failure, pneumothorax upon my independent interpretation. No free air CT of the abdomen and pelvisthere are distended loops of small bowel. Radiologist's Impression: Abdomen/Pelvis CT 02/25/23 14:21 CT SCAN OF THE ABDOMEN AND PELVIS WITH IV CONTRAST CLINICAL HISTORY: Upper abdominal pain. COMPARISON STUDY: No priors. TECHNIQUE: Following the IV administration of 91 cc of Optiray 320, CT scan of the abdomen and pelvis is performed from the lung bases to the proximal femora. Images are reviewed in the axial, sagittal, and coronal planes. IV contrast was administered without complication. A dose lowering technique was utilized adhering to the principles of ALARA. CT DOSE: 1110.73 mGy.cm FINDINGS: Lung bases: The heart is normal in size and without pericardial effusion. There is a moderate to large hiatal hernia. The lung bases are clear noting mild dependent atelectasis. Liver: The contrast-enhanced liver is normal in size, contour, and attenuation. There is no intrahepatic biliary ductal dilatation. The hepatic veins and portal veins are patent. Gallbladder: Unremarkable. Spleen: Normal in size and attenuation. Pancreas: Unremarkable. Adrenal glands: Unremarkable. Kidneys: The contrast enhanced kidneys demonstrate mild cortical atrophy and are without hydronephrosis. There are several nonobstructing right renal calculi which measure up to 6 mm. No left renal calculi are identified on this contrast- enhanced examination and no ureteral stone is seen. An extrarenal pelvis is noted on the right. The kidneys enhance symmetrically. Abdominal vasculature: The abdominal aorta is normal in course and caliber noting mild to moderate atherosclerotic calcification. Bowel: The proximal jejunum is significantly thick-walled and distended, measuring up to 4.1 cm diameter. There is surrounding infiltration, venous engorgement, and trace interloop fluid. This transitions to normal appearing distal jejunum on axial image #158. There is only mild change in caliber at this site. No pneumatosis intestinalis or portal venous gas is identified. The distal small bowel is relatively decompressed. The celiac trunk and superior mesenteric artery are widely patent. There is moderate colonic diverticulosis without CT evidence of acute diverticulitis. The appendix is not identified and reported surgically absent. Peritoneum: There is trace free fluid in the pelvis. No intraperitoneal free air is identified. There is a fat-containing umbilical hernia. Lymphadenopathy: None. Pelvic viscera: The prostate gland is markedly enlarged and heterogeneous. The bladder wall is thickened/trabeculated indicating chronic outlet obstruction. Skeletal structures: The skeletal structures are osteopenic. 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 Mild to moderate lumbosacral spondylosis is observed. No lytic or blastic lesions are seen. IMPRESSION: 1. There are thick-walled and distended loops of proximal jejunum in the left upper quadrant with surrounding infiltration and interloop fluid/edema. This abruptly transitions to more normal appearing small bowel in the upper abdomen with only mild change in caliber of the bowel loops at this site. The appearance favors a small bowel obstruction, although the transition point is somewhat atypical. A closed loop type obstruction could potentially have this appearance, and given the degree of wall thickening and vascular congestion these loops may be at risk for ischemia. The superior mesenteric artery and celiac trunk are widely patent. Surgical evaluation is advised. 2. The distal small bowel is relatively decompressed. 3. No intraperitoneal free air is identified, and there is no pneumatosis intestinalis or portal venous gas. 4. Colonic diverticulosis without CT evidence of acute diverticulitis. 5. Moderate to large hiatal hernia. 6. Additional findings as above. ACT 112: Negative or not required by law. Electronically signed by: Alpesh Brannon M.D. 02/25/2023 5:18 PM Chest X-Ray 02/25/23 16:38 TWO VIEW CHEST CLINICAL HISTORY: Epigastric abdominal pain.. FINDINGS: PA and lateral chest radiographs are compared to study dated 07/20/2013. There is a moderate hiatal hernia. The heart is top normal for projection noting atherosclerotic calcification of the thoracic aorta. The lungs and pleural spaces are clear. There is no pneumothorax. The skeletal structures are osteopenic. The bony thorax appears intact. IMPRESSION: 1. The lungs are clear. 2. Moderate hiatal hernia. ACT 112: Negative or not required by law. Electronically signed by: Alpesh Brannon M.D. 02/25/2023 5:00 PM ECG Data Attestation: I personally reviewed and interpreted this ECG as follows: Indication: + abdominal pain Rate (beats per minute): 100 Rhythm: + normal sinus ECG Intervals/blocks: + Normal QRS, + Normal QT and + Normal MN ECG Parker: + Normal ECG ST segments: + Normal ST segments ECG Findings: + Poor R wave progression and + Other (Nonspecific T wave abnormality); no PACs or no PVCs Comparison ECG Date: from (03/24/19) Change: the following changes noted (Nonspecific T wave abnormality is now present) MDM Narrative This patient comes in as scribed above has been having epigastric pain for the last several days. On my exam, he is moderately tender to palpation epigastric area and central abdomen no peritonitis. He appears in no distress. IV access was established and blood work was obtained. he has no fever white count discussed infection. He has no significant electrolyte or metabolic abnormalities. He has normal liver function test and lipase which would make gallbladder and pancreas disease and liver disease less likely. He does have a history of known hiatal hernia. Chest x-ray was obtained and shows no free air or pulmonary process. I did also add an EKG and a troponin. He had a CAT scan of his abdomen and pelvis with IV contrast. EKG does not show any definite acute ischemic changes. Chest x-ray shows no acute infiltrate, failure, pneumothorax there is a hiatal hernia seen. His CAT scan shows distended thickened loops of small bowel which are concerning for small bowel obstruction without a definite transition point. A closed-loop obstruction could have the same appearance and given the wall thickening and general vascular ingestions the loops could be at risk for ischemia. Superior mesenteric artery and celiac arteries are patent. I did consult surgery. I gave the patient a normal saline bolus 1000 cc IV. I went back and asked him again about surgery and he did have his appendix out when he was a child. I did add a stat lactic acid and I did consult with Dr. Clemons the on-call surgeon he is going to come see the patient ER for treatment and evaluation. The patient's lactic acid in the meantime was normal. He has received IV hydration. Dr. Clemons did see the patient in the ER and is also asked medicine to admit the patient for further inpatient care. I have consulted the [facility] hospitalist team and will discuss the case with them in consultation as well. The patient will be admitted for further treatment and evaluation. Continuous cardiac monitoring: Orders placed in EMR for continuous cart monitor call upon my evaluation patient with to be in normal sinus rhythm with a rate of 90 Impression & Plan Epigastric abdominal pain, SBO (small bowel obstruction), Abdominal bloating, Hernia, hiatal Discharge Plan Visit Data Chief Complaint: Abdominal Pain Stated Complaint: ABDOMINAL PAIN AND DISTENSION ED Provider: Bunny Soni Discharge Problem: Epigastric abdominal pain, SBO (small bowel obstruction), Abdominal bloating, Hernia, hiatal Forms Stand Alone Forms: [facility] Prescriptions Prescriptions: No Action tamsulosin [Flomax] 0.4 mg Capsule 0.8 mg PO QAM PreserVision AREDS-2 [id number] Capsule 1 tab PO QAM acetaminophen 500 mg tablet 1,000 mg PO Q8 PRN (Reason: Pain) bacitracin 500 unit/gram ointment 1 applic topical BID Qty: 28 0RF Rx Instructions: apply until healed. bacitracin 500 unit/gram ointment 1 applic topical BID Qty: 28 0RF Rx Instructions: until healed. Referrals Referrals: Derek Benoit DO [Primary Care Provider] -
[2023-02-25] MEDS ORDERED: OPTIRAY 320 500ml IV ONE (16:58)
--- NOTE | 2023-02-25 17:01 | XRay Report ---
TWO VIEW CHEST CLINICAL HISTORY: Epigastric abdominal pain.. FINDINGS: PA and lateral chest radiographs are compared to study dated 07/20/2013. There is a moderate hiatal hernia. The heart is top normal for projection noting atherosclerotic calcification of the th oracic aorta. The lungs and pleural spaces are clear. There is no pneumothorax. The skeletal structu res are osteopenic. The bony thorax appears intact. IMPRESSION: 1. The lungs are clear. 2. Moderate hiatal hernia. ACT 112: Negative or not required by law. Electronically signed by: Alpesh Brannon M.D. 02/25/2023 5:00 PM
[2023-02-25 17:11] LABS: Troponin I High Sensitivity 5.4 pg/ml (0-20)
--- NOTE | 2023-02-25 17:20 | CT Scan Report ---
CT SCAN OF THE ABDOMEN AND PELVIS WITH IV CONTRAST CLINICAL HISTORY: Upper abdominal pain. COMPARISON STUDY: No priors. TECHNIQUE: Following the IV administration of 91 cc of Optiray 320, CT scan of the abdomen and pelvi s is performed from the lung bases to the proximal femora. Images are reviewed in the axial, sagittal , and coronal planes. IV contrast was administered without complication. A dose lowering technique wa s utilized adhering to the principles of ALARA. CT DOSE: 1110.73 mGy.cm FINDINGS: Lung bases: The heart is normal in size and without pericardial effusion. There is a moderate to larg e hiatal hernia. The lung bases are clear noting mild dependent atelectasis. Liver: The contrast-enhanced liver is normal in size, contour, and attenuation. There is no intrahepa tic biliary ductal dilatation. The hepatic veins and portal veins are patent. Gallbladder: Unremarkable. Spleen: Normal in size and attenuation. Pancreas: Unremarkable. Adrenal glands: Unremarkable. Kidneys: The contrast enhanced kidneys demonstrate mild cortical atrophy and are without hydronephros is. There are several nonobstructing right renal calculi which measure up to 6 mm. No left renal calc santana are identified on this contrast-enhanced examination and no ureteral stone is seen. An extrarenal pelvis is noted on the right. The kidneys enhance symmetrically. Abdominal vasculature: The abdominal aorta is normal in course and caliber noting mild to moderate at herosclerotic calcification. Bowel: The proximal jejunum is significantly thick-walled and distended, measuring up to 4.[address] There is surrounding infiltration, venous engorgement, and trace interloop fluid. This transitio ns to normal appearing distal jejunum on axial image #158. There is only mild change in caliber at th is site. No pneumatosis intestinalis or portal venous gas is identified. The distal small bowel is re latively decompressed. The celiac trunk and superior mesenteric artery are widely patent. There is mo derate colonic diverticulosis without CT evidence of acute diverticulitis. The appendix is not ident ified and reported surgically absent. Peritoneum: There is trace free fluid in the pelvis. No intraperitoneal free air is identified. There is a fat-containing umbilical hernia. Lymphadenopathy: None. Pelvic viscera: The prostate gland is markedly enlarged and heterogeneous. The bladder wall is thicke nickie/trabeculated indicating chronic outlet obstruction. Skeletal structures: The skeletal structures are osteopenic. There are bilateral pars defects at L5 w ith severe disc space narrowing and 10 mm of anterolisthesis at L5-S1. Mild to moderate lumbosacral s pondylosis is observed. No lytic or blastic lesions are seen. IMPRESSION: 1. There are thick-walled and distended loops of proximal jejunum in the left upper quadrant with jose rounding infiltration and interloop fluid/edema. This abruptly transitions to more normal appearing s mall bowel in the upper abdomen with only mild change in caliber of the bowel loops at this site. The appearance favors a small bowel obstruction, although the transition point is somewhat atypical. A c losed loop type obstruction could potentially have this appearance, and given the degree of wall thic kening and vascular congestion these loops may be at risk for ischemia. The superior mesenteric arter y and celiac trunk are widely patent. Surgical evaluation is advised. 2. The distal small bowel is relatively decompressed. 3. No intraperitoneal free air is identified, and there is no pneumatosis intestinalis or portal veno us gas. 4. Colonic diverticulosis without CT evidence of acute diverticulitis. 5. Moderate to large hiatal hernia. 6. Additional findings as above. ACT 112: Negative or not required by law. Electronically signed by: Alpesh Brannon M.D. 02/25/2023 5:18 PM
[2023-02-25] MEDS ORDERED: SODIUM CHLORIDE 0.9% 1,000 ML IV ONE (17:38)
[2023-02-25 18:15] LABS: Appearance Urine Clear (Clear); Bacteria Urine Automated Negative (Negative); Bilirubin Urine Negative (Negative); Blood Urine 1+ (Negative); Cast Urine Automated 0 /lpf (0-5); Color Urine Yellow; Epithelial Cell Urine Auto 0-5 /lpf (0-5); Glucose Urine UA Negative (Negative); Ketones Urine 1+ (Negative); Leukocyte Esterase Urine Negative (Negative); Nitrite Urine Negative (Negative); Protein Urine Negative (Negative); RBC Urine Automated 0-4 /hpf (0-4); Specific Gravity Urine > 1.045 (1.000-1.030); Urobilinogen Urine Negative (Negative); pH Urine 5.5 (4.5-7.5)
--- NOTE | 2023-02-25 19:05 | Surgery Consultation ---
Date of Consultation February 25, 2023 Assessment & Plan (1) SBO (small bowel obstruction): I reviewed the CT scan myself as well as discussed it with Dr. Brannon. His labs are essentially normal including a lactic acid. The scan is mildly concerning for some ischemia although clinically he looks well and his labs again are essentially normal. I had a long discussion with him and his son. We do not have a definitive diagnosis. We discussed potentially going to the operating room this evening for exploration versus observation. We discussed the risks and benefits pros and cons of each. In light of how good he looks as well as his lab work we have decided to observe him. If he gets worse overnight he is to have his nurse contact me immediately. If he does not improve over the next couple days we may end up doing an exploration anyway and he is aware of that. Medicine will admit him. I am recommending some antibiotics IV fluids and symptom control. I will follow along closely. (2) Epigastric abdominal pain: (3) Abnormal CT scan: History of Present Illness History of Present Illness Very pleasant 82-year-old male companied by his son. He relates about a 4-day history of mid abdominal to epigastric pain. Slightly worse today which is why they came in. He denies any nausea or vomiting but does admit to having some mild anorexia. He denies any diarrhea. His only surgical history was an open appendectomy in the 1960s. He denies any fevers or chills. Just laying here he relates his pain is minimal may be a 1 or 2 Allergies Allergy/AdvReac Type Severity Reaction Status Date / Time methylprednisolone AdvReac Mild Tachycardia Unverified 02/25/23 18:52 albuterol AdvReac Unknown Verified 02/25/23 18:53 finasteride AdvReac Migraine Verified 02/25/23 18:53 Home Medications Medication Instructions Recorded Confirmed Type tamsulosin 0.4 mg capsule (Flomax) 0.8 mg PO QAM 08/14/19 02/25/23 History vit C 250 mg-vit E 90 mg-zinc 40 1 tab PO QAM 08/14/19 02/25/23 History mg-copper 1 [id number]-[id number] capsule (PreserVision AREDS-2) acetaminophen 500 mg tablet 1,000 mg PO Q8 PRN Pain 08/28/19 02/25/23 History docusate sodium 100 mg capsule 100 mg PO AMHS 02/25/23 02/25/23 History dutasteride 0.5 mg capsule 0.5 mg PO QAM 02/25/23 02/25/23 History polyethylene glycol 3350 17 17 g PO QAM 02/25/23 02/25/23 History gram/dose oral powder (Miralax) rosuvastatin 5 mg tablet 5 mg PO QAM 02/25/23 02/25/23 History Patient History Medical History (Updated 02/25/23 @ 19:00 by Dragan Clemons, DO) Pre-diabetes Osteoarthritis Macular degeneration BPH (benign prostatic hyperplasia) GERD (gastroesophageal reflux disease) Hyperlipidemia NO MEDS Surgical History History of colonoscopy History of arthroscopy RIGHT KNEE Hx of vasectomy History of appendectomy Hx of bilateral cataract extraction Family History Mother Diabetes Social History Smoking Status: Never smoker Second Hand Exposure: Yes (IN PAST); Do You Dip or Chew Tobacco: No; Hx Alcohol Use: No Hx Substance Use: No Preferred Language: Singaporean Communication Ability: Effective Chief Bank Examiner Required: No Beliefs That Will Affect Care: None marital status: / Current Living Situation: Alone Feels Safe at Home: Yes Assistive Devices: None Review of Systems Review of Systems: All systems reviewed & are unremarkable except as noted in HPI & below Physical Exam Constitutional: WD/WN, vitals as above no acute distress and not ill appearing Eyes: PERRL, conjunctivae normal, anicteric sclerae EOM intact bilaterally ENMT: external ear and nose normal, oropharynx normal Ears: no hearing impairment Neck: trachea midline, no thyromegaly Respiratory: normal respiratory effort; no respiratory distress and does not use accessory muscles Cardiovascular: Rate/Rhythm: regular rate and regular rhythm Gastrointestinal (Abdomen): Soft. Mild supraumbilical to epigastric tenderness. There is no guarding or rebound. No palpable abnormalities. Skin: no rashes, warm and dry Psychiatric: Orientation: alert, oriented x 3 and cooperative Results & Data Vital Signs (Past 12 Hours) Vital Signs Temp Pulse Pulse Resp BP BP Pulse Ox 02/25/23 18:28 91 H 02/25/23 18:27 88 18 190/77 H 97 02/25/23 14:17 36.4 C L 106 H 20 142/72 H 98 O2 Del Method 02/25/23 18:28 02/25/23 18:27 Room Air 02/25/23 14:17 Room Air PG Care Time/CCT Total # of Minutes Spent Total Time Spent with Patient: Total time spent is greater than 50% in coordination of care (as documented) at patient's floor/unit and/or counseling patient: Coding Level of Care Code 72621 INT INP/OBS CARE 375MIN Diagnoses SBO (small bowel obstruction) K56.609 Epigastric abdominal pain R10.[address] scan R93.89
--- NOTE | 2023-02-25 19:27 | History & Physical Report ---
Date of Service February 25, 2023 Assessment & Plan (1) SBO (small bowel obstruction): (2) Abnormal CT scan: Plan: This is an 82-year-old male with PMH of prediabetes, dyslipidemia, GERD, fatty liver, BPH and other medical problems listed below who presents with progressively worsening abdominal pain over the past few days and was found to have abnormal CT abd/pelvis findings suggestive of SBO. --CT abd/pelvis : there are thick-walled and distended loops of proximal jejunum in the left upper quadrant with surrounding infiltration and interloop fluid/edema. This abruptly transitions to more normal appearing small bowel in the upper abdomen with only mild change in caliber of the bowel loops at this site. The appearance favors a small bowel obstruction, although the transition point is somewhat atypical. A closed loop type obstruction could potentially have this appearance, and given the degree of wall thickening and vascular congestion these loops may be at risk for ischemia. The superior mesenteric artery and celiac trunk are widely patent. Surgical evaluation is advised. Evaluated by Dr. Clemons in ED due to concern for ischemia on CT scan - looks clinically well, normal lactic acid. Will observe for now but if worsens overnight may need OR for exploration Starting on empiric Zosyn, gentle fluids, strict NPO, pain control, antiemetics Repeat CMP, CBC and lactate in AM (3) BPH (benign prostatic hyperplasia): Plan: Holding BPH meds for now as patient may go to OR Bladder scan, place cohn if needed (4) Pre-diabetes: Plan: Monitor BSG, diabetic diet once advanced (5) Hyperlipidemia: Plan: Resume statin once diet is advanced DVT Ppx: SCDs Code status: FULL PCP: Berny Dispo: Admit to med/surg Patient seen in collaboration with Dr. Valenzuela. Please see addendum. History of Present Illness Chief Complaint: abd pain Primary Care Provider: Derek Benoit DO This is an 82-year-old male with PMH of prediabetes, dyslipidemia, GERD, fatty liver, BPH and other medical problems listed below who presents with progressively worsening abdominal pain over the past few days. Describes abdominal pain in epigastric-mid abdomen region with associated decreased appetite. Denies any nausea or vomiting. Had a normal appetite until this morning when he made oatmeal and apples and did not feel well enough to eat it. History of remote hernia repair and open appendectomy in the 60s. Only takes 2 prescription medications regularly-tamsulosin and a statin. Denies any fever, chills, sore throat, congestion, chest pain, shortness of breath, nausea, vomiting, dysuria, diarrhea or constipation. Allergies Allergy/AdvReac Type Severity Reaction Status Date / Time methylprednisolone AdvReac Mild Tachycardia Unverified 02/25/23 18:52 albuterol AdvReac Unknown Verified 02/25/23 18:53 finasteride AdvReac Migraine Verified 02/25/23 18:53 Home Medications Medication Instructions Recorded Confirmed Type tamsulosin 0.4 mg capsule (Flomax) 0.8 mg PO QAM 08/14/19 02/25/23 History vit C 250 mg-vit E 90 mg-zinc 40 1 tab PO QAM 08/14/19 02/25/23 History mg-copper 1 yx-qhalgs-lptwla capsule (PreserVision AREDS-2) acetaminophen 500 mg tablet 1,000 mg PO Q8 PRN Pain 08/28/19 02/25/23 History docusate sodium 100 mg capsule 100 mg PO AMHS 02/25/23 02/25/23 History dutasteride 0.5 mg capsule 0.5 mg PO QAM 02/25/23 02/25/23 History polyethylene glycol 3350 17 17 g PO QAM 02/25/23 02/25/23 History gram/dose oral powder (Miralax) rosuvastatin 5 mg tablet 5 mg PO QAM 02/25/23 02/25/23 History amlodipine 5 mg tablet (Norvasc) 5 mg PO QAM #30 tabs 02/28/23 Rx amoxicillin 875 mg-potassium 1 tab PO BID 5 days #10 tabs 02/28/23 Rx clavulanate 125 mg tablet lactobacillus combination no.4 3 3,000 mmu cells PO DAILY 7 days #7 02/28/23 Rx billion cell capsule (Probiotic) caps Past Med/Surg History Medical History Pre-diabetes Osteoarthritis Macular degeneration BPH (benign prostatic hyperplasia) GERD (gastroesophageal reflux disease) Hyperlipidemia NO MEDS Surgical History History of colonoscopy History of arthroscopy RIGHT KNEE Hx of vasectomy History of appendectomy Hx of bilateral cataract extraction Family History Mother Diabetes Social History Smoking Status: Never smoker Second Hand Exposure: Yes; Do You Dip or Chew Tobacco: No; Hx Alcohol Use: No Hx Substance Use: No Preferred Language: Tajik Communication Ability: Effective Lead Auditor Required: No Beliefs That Will Affect Care: None marital status: / Current Living Situation: Alone Feels Safe at Home: Yes Assistive Devices: Walker Review of Systems Review of Systems: At least ten systems reviewed and negative except as noted in the HPI. Physical Exam Physical Exam: General Appearance: WD/WN, vitals as above, NAD, sitting up in bed, pleasant, conversing easily Head: normocephalic, atraumatic Eyes: normal inspection, PERRL, conjunctivae normal, anicteric sclerae ENT: external ear and nose normal, oropharynx normal Neck: normal visual inspection, trachea midline, no thyromegaly Respiratory: normal respiratory effort, lungs clear to auscultation, no wheeze, rales, rhonchi. No accessory muscle use Cardiovascular: regular rate, rhythm, no murmur, normal peripheral pulses, no BLE edema. Vessels: no JVD Chest: normal inspection of chest Abdomen/GI: normal bowel sounds, soft but distended, TTP in amita-umbilical region Extremities/Musculoskeletal: no cyanosis or clubbing, extremities motor strength 5/5 Neurologic: PERRL, EOMI, accommodation nl, no face palsy, no dysarthria, CN's II-XI intact bilaterally and moves all extremities Psychiatric: A+Ox3, euthymic affect Skin: no rashes, normal color, warm/dry Results & Data Results & Data Vital Signs (Past 12 Hours) Vital Signs Temp Pulse Pulse Resp BP BP Pulse Ox 02/25/23 19:05 97 H 18 162/81 H 97 02/25/23 18:28 91 H 02/25/23 18:27 88 18 190/77 H 97 02/25/23 14:17 36.4 C L 106 H 20 142/72 H 98 O2 Del Method 02/25/23 19:05 Room Air 02/25/23 18:28 02/25/23 18:27 Room Air 02/25/23 14:17 Room Air Laboratory Results Short CBC 02/25/23 Range/Units 16:05 WBC 6.79 (4.8-10.8) K/ul Hgb 13.7 L (14.0-18.0) g/dl Hct 42.4 (42.0-52.0) % Plt Count 196 (130-400) K/uL BMP 02/25/23 16:05 Sodium 137 Potassium 3.9 Chloride 102 Carbon Dioxide 27 BUN 16 Creatinine 0.90 Glucose 117 H Calcium 9.1 Liver Function 02/25/23 Range/Units 16:05 Total Bilirubin 0.5 (0.2-1.0) mg/dl AST 19 (13-39) U/L ALT 15 (7-52) U/L Alkaline Phosphatase 58 (34-104) U/L Albumin 4.3 (3.4-5.0) gm/dl Urine 02/25/23 Range/Units 18:00 Urine Color Yellow Urine Appearance Clear (Clear) Urine pH 5.5 (4.5-7.5) Ur Specific [place] > 1.045 H (1.000-1.030) Urine Protein Negative (Negative) Urine Glucose (UA) Negative (Negative) Diagnostic Findings Abdomen/Pelvis CT 02/25/23 14:21 CT SCAN OF THE ABDOMEN AND PELVIS WITH IV CONTRAST CLINICAL HISTORY: Upper abdominal pain. COMPARISON STUDY: No priors. TECHNIQUE: Following the IV administration of 91 cc of Optiray 320, CT scan of the abdomen and pelvis is performed from the lung bases to the proximal femora. Images are reviewed in the axial, sagittal, and coronal planes. IV contrast was administered without complication. A dose lowering technique was utilized adhering to the principles of ALARA. CT DOSE: 1110.73 mGy.cm FINDINGS: Lung bases: The heart is normal in size and without pericardial effusion. There is a moderate to large hiatal hernia. The lung bases are clear noting mild dependent atelectasis. Liver: The contrast-enhanced liver is normal in size, contour, and attenuation. There is no intrahepatic biliary ductal dilatation. The hepatic veins and portal veins are patent. Gallbladder: Unremarkable. Spleen: Normal in size and attenuation. Pancreas: Unremarkable. Adrenal glands: Unremarkable. Kidneys: The contrast enhanced kidneys demonstrate mild cortical atrophy and are without hydronephrosis. There are several nonobstructing right renal calculi which measure up to 6 mm. No left renal calculi are identified on this contrast- enhanced examination and no ureteral stone is seen. An extrarenal pelvis is noted on the right. The kidneys enhance symmetrically. Abdominal vasculature: The abdominal aorta is normal in course and caliber noting mild to moderate atherosclerotic calcification. Bowel: The proximal jejunum is significantly thick-walled and distended, measuring up to 4.1 cm diameter. There is surrounding infiltration, venous engorgement, and trace interloop fluid. This transitions to normal appearing distal jejunum on axial image #158. There is only mild change in caliber at this site. No pneumatosis intestinalis or portal venous gas is identified. The distal small bowel is relatively decompressed. The celiac trunk and superior mesenteric artery are widely patent. There is moderate colonic diverticulosis without CT evidence of acute diverticulitis. The appendix is not identified and reported surgically absent. Peritoneum: There is trace free fluid in the pelvis. No intraperitoneal free air is identified. There is a fat-containing umbilical hernia. Lymphadenopathy: None. Pelvic viscera: The prostate gland is markedly enlarged and heterogeneous. The bladder wall is thickened/trabeculated indicating chronic outlet obstruction. Skeletal structures: The skeletal structures are osteopenic. 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 Mild to moderate lumbosacral spondylosis is observed. No lytic or blastic lesions are seen. IMPRESSION: 1. There are thick-walled and distended loops of proximal jejunum in the left upper quadrant with surrounding infiltration and interloop fluid/edema. This abruptly transitions to more normal appearing small bowel in the upper abdomen with only mild change in caliber of the bowel loops at this site. The appearance favors a small bowel obstruction, although the transition point is somewhat atypical. A closed loop type obstruction could potentially have this appearance, and given the degree of wall thickening and vascular congestion these loops may be at risk for ischemia. The superior mesenteric artery and celiac trunk are widely patent. Surgical evaluation is advised. 2. The distal small bowel is relatively decompressed. 3. No intraperitoneal free air is identified, and there is no pneumatosis intestinalis or portal venous gas. 4. Colonic diverticulosis without CT evidence of acute diverticulitis. 5. Moderate to large hiatal hernia. 6. Additional findings as above. ACT 112: Negative or not required by law. Electronically signed by: Alpesh Brannon M.D. 02/25/2023 5:18 PM Chest X-Ray 02/25/23 16:38 TWO VIEW CHEST CLINICAL HISTORY: Epigastric abdominal pain.. FINDINGS: PA and lateral chest radiographs are compared to study dated 07/20/2013. There is a moderate hiatal hernia. The heart is top normal for projection noting atherosclerotic calcification of the thoracic aorta. The lungs and pleural spaces are clear. There is no pneumothorax. The skeletal structures are osteopenic. The bony thorax appears intact. IMPRESSION: 1. The lungs are clear. 2. Moderate hiatal hernia. ACT 112: Negative or not required by law. Electronically signed by: Alpesh Brannon M.D. 02/25/2023 5:00 PM Code Status & VTE Plan VTE Prophylaxis Plan VTE Prophylaxis will be ordered: Yes Supervising Physician Co-Signing Physician Notes Pt seen and examined by myself, Deysi Valenzuela MD on the day of service. Care was coordinated with Shannan Saenz PA-C. 82yoF admitted with SBO, concern for bowel ischemia. Stable on exam, no acute distress. Mild abd tenderness diffusely. General surgery consult-recommending conservative management at this time, IV abx, IV fluids, NPO. Otherwise as above. .
[2023-02-25] MEDS ORDERED: PIPER/TAZO 4.5g in D5W MINI-B 100 ML IV ONE (19:45)
[2023-02-25] MEDS: SODIUM CHLORIDE 0.9% 1,000 ML IV SCH (21:09)
[2023-02-25] MEDS ORDERED: ONDANSETRON INJ 2 MG/ML 2 ML VIAL IV PRN (23:10)
[2023-02-25] MEDS ORDERED: HYDROmorphone INJ 0.5 MG/0.5 ML SYR IV PRN (23:10)
[2023-02-25] MEDS: ACETAMINOPHEN 1,000 MG/100 ML VIAL IV PRN (23:37)
[2023-02-26] MEDS: PIPERACILLIN/TAZOBACTAM 4.5 GM in DEXTROSE 5% MINI-B 100 ML IV SCH ×3 (02:07→17:59)
[2023-02-26] MEDS ORDERED: ACETAMINOPHEN 1,000 MG/100 ML VIAL IV STA (04:16)
--- NOTE | 2023-02-26 05:27 | Surgery Progress Note ---
Date of Service February 26, 2023 Assessment & Plan (1) SBO (small bowel obstruction): Plan: Patient has been admitted on the medical service. We recommend proceeding as follows from a surgical perspective: Provide analgesics as needed. Of note patient has not required any analgesics since approximately 11:15 PM on 02/25/2023 Provide antiemetics as needed Continue antibiotics in form of Zosyn Continue intravenous fluids Check a.m. labs when available Continue to follow serial exams. Determination about the need for any surgical invention will be made based on his clinical course as it unfolds As above. Feeling well with no complaints. Minimal discomfort. His labs look good. Will initiate a clear liquid diet and see how he does. I would continue antibiotics. Will repeat KUB tomorrow Admission and Anticipated Discharge Date Admission Date: February 25, 2023 Subjective Patient is currently resting comfortably in bed. Since admission to the hospital he does note some abdominal pain but notes it is no worse since what he noted at time of admission. He denies any nausea or vomiting. He has not had any bowel movement or flatus since surgery but feels as though he needs to have a bowel movement. Physical Exam Gastrointestinal (Abdomen): Abdomen is soft and nondistended with positive bowel sounds. Patient has some slight tenderness to palpation greatest on the left of the umbilicus with some slight rebound tenderness. Results & Data Vital Signs (Past 12 Hours) Vital Signs Temp Pulse Pulse Pulse Resp BP BP 02/26/23 02:05 91 H 18 164/81 H 02/25/23 23:11 36.6 C 103 H 18 166/72 H 02/25/23 23:00 02/25/23 22:17 02/25/23 19:05 97 H 18 162/81 H 02/25/23 18:28 91 H 02/25/23 18:27 88 18 190/77 H Pulse Ox O2 Del Method 02/26/23 02:05 94 Room Air 02/25/23 23:11 95 Room Air 02/25/23 23:00 Room Air 02/25/23 22:17 Room Air 02/25/23 19:05 97 Room Air 02/25/23 18:28 02/25/23 18:27 97 Room Air PG Care Time/CCT Total # of Minutes Spent Total Time Spent with Patient: Total time spent is greater than 50% in coordination of care (as documented) at patient's floor/unit and/or counseling patient: Coding Level of Care Code 09669 SUB INP/OBS CARE MIN Diagnoses SBO (small bowel obstruction) K56.609
[2023-02-26 05:49] LABS: Hematocrit (blood only) 34.4 % (42.0-52.0); Hemoglobin 11.5 g/dl (14.0-18.0); Mean Corpuscular Hemoglobin 28.5 pg (25.0-34.0); Mean Corpuscular Hgb Conc 33.4 g/dL (32.0-36.0); Mean Corpuscular Volume 85.4 fL (80.0-100.0); Mean Platelet Volume 10.1 fL (9.4-12.4); Platelet Count 168 K/uL (130-400); RDW Coefficient of Variation 15.1 % (11.5-14.5); RDW Standard Deviation 47.1 fL (36.4-46.3); Red Blood Count 4.03 M/uL (4.70-6.10); White Blood Count 5.69 K/ul (4.8-10.8)
[2023-02-26 06:03] LABS: Albumin Globulin Ratio 1.4 (0.9-2); Albumin Level 3.4 gm/dl (3.4-5.0); BUN Creatinine Ratio 18.9 (10-20); Bilirubin,Total 0.7 mg/dl (0.2-1.0); Calcium 7.9 mg/dl (8.6-10.3); Creatinine Clr Calc Pharmacy 74.8 ml/min; Est GFR (African American) 100.3 ml/min; Est GFR (Non-African American) 86.5 ml/min; Globulin 2.5 gm/dl (2.5-4.0); Potassium 3.6 mmol/L (3.5-5.1); Total Protein 5.9 gm/dl (6.0-8.3)
[2023-02-26] MEDS: SODIUM CHLORIDE 0.9% 1,000 ML IV SCH ×2 (09:32→20:23)
[2023-02-26] MEDS: POTASSIUM CHLORIDE / WTR 10 MEQ/100 ML PLCT IV SCH ×2 (09:34→10:41)
[2023-02-26] MEDS: PANTOprazole 40 MG in SYRINGE 0 ML IV SCH (11:40)
--- NOTE | 2023-02-26 11:58 | Hospitalist Progress Note ---
Date of Service February 26, 2023 Assessment & Plan (1) SBO (small bowel obstruction): (2) Abnormal CT scan: Plan: This is an 82-year-old male with PMH of prediabetes, dyslipidemia, GERD, fatty liver, BPH and other medical problems listed below who presents with progressively worsening abdominal pain over the past few days IMPORT EXPORT AGENT and was found to have abnormal CT abd/pelvis findings suggestive of SBO. -- Admitting CT abd/pelvis : there are thick-walled and distended loops of proximal jejunum in the left upper quadrant with surrounding infiltration and interloop fluid/edema. This abruptly transitions to more normal appearing small bowel in the upper abdomen with only mild change in caliber of the bowel loops at this site. The appearance favors a small bowel obstruction, although the transition point is somewhat atypical. A closed loop type obstruction could potentially have this appearance, and given the degree of wall thickening and vascular congestion these loops may be at risk for ischemia. The superior mesenteric artery and celiac trunk are widely patent. Surgical evaluation is advised. Evaluated by Dr. Clemons in ED due to concern for ischemia on CT scan - looked clinically well, normal lactic acid at presentation. Starting on empiric Zosyn, gentle fluids, pain control, antiemetics. Will continue same. Lactate today WNL. Patient moved 3 bowels, general surgery on board, patient advance to clear liquid diet. Repeat CMP, CBC and lactate in AM We will continue to monitor. Patient reports improvement in his belly pain. (3) BPH (benign prostatic hyperplasia): Plan: Continue home meds (4) Pre-diabetes: Plan: Monitor BSG, diabetic diet once advanced (5) Hyperlipidemia: Plan: Continue home meds. DVT Ppx: SCDs Code status: FULL PCP: Berny Dispo: Admit to med/surg Admission and Anticipated Discharge Date Admission Date: February 25, 2023 Subjective Patient was seen and examined at bedside. Patient was lying in bed, on room air, resting comfortably, not in any acute distress. Patient reports moving 3 average bowel movements in the morning. Reports his abdomen getting softer and reports abdominal pain getting better. Surgery is on board, diet advanced to clear liquid. Patient denies any fever/chills/chest pain/cough/other review of symptoms. Physical Exam Physical Exam: GENERAL: Alert and oriented x3. NAD, on RA. HEENT: No pallor, no icterus. Pupils equal, round and reactive to light. Oral mucosa moist. NECK: No JVD, no neck masses. HEART: S1 and S2 heard. Regular rate and rhythm. No murmur, no gallop. RESPIRATORY SYSTEM: Normal AP diameter. No accessory muscle use. No wheezing, no crackles. ABDOMEN: Soft, bowel sounds present, nontender, no distention. CENTRAL NERVOUS SYSTEM: No facial droop. Speech is clear. Obeys simple commands. Moves extremities. EXTREMITIES: No edema, no erythema seen. Results & Data Results & Data Vital Signs (Past 12 Hours) Vital Signs Temp Pulse Resp BP Pulse Ox O2 Del Method 02/26/23 06:34 36.7 C 78 18 148/77 H 96 Room Air 02/26/23 02:05 91 H 18 164/81 H 94 Room Air
[2023-02-26] MEDS ORDERED: TROLAMINE SALICYLATE 10% CRM 255 APPLN/85 GM TUBE EXT PRN (12:46)
--- NOTE | 2023-02-26 14:32 | Electrocardiogram Report ---
Test Reason : Blood Pressure : / mmHG Vent. Rate : 100 BPM Atrial Rate : 100 BPM P-R Int : 198 ms QRS Dur : 072 ms QT Int : 344 ms P-R-T Axes : 104 -21 099 degrees QTc Int : 443 ms Normal sinus rhythm Possible Old Anterior infarct Abnormal ECG When compared with ECG of 24-MAR-2019 09:15, Borderline Criteria for Anterior infarct is now Present Confirmed by Simon Salazar ([id number]) on 02/26/2023 2:32:28 PM Referred By: REFERRED SELF Confirmed By:Simon Salazar
[2023-02-26] MEDS ORDERED: DUTASTERIDE: ORDER AWAITING ACTION SCH (16:00)
[2023-02-26] MEDS: ACETAMINOPHEN 1,000 MG/100 ML VIAL IV PRN (17:34)
[2023-02-27] MEDS: PIPERACILLIN/TAZOBACTAM 4.5 GM in DEXTROSE 5% MINI-B 100 ML IV SCH ×3 (01:35→17:24)
[2023-02-27] MEDS: ROSUVASTATIN CALCIUM 5 MG TAB PO SCH (07:51)
[2023-02-27 08:43] LABS: Hematocrit (blood only) 39.1 % (42.0-52.0); Hemoglobin 12.4 g/dl (14.0-18.0); Mean Corpuscular Hemoglobin 28.3 pg (25.0-34.0); Mean Corpuscular Hgb Conc 31.7 g/dL (32.0-36.0); Mean Corpuscular Volume 89.3 fL (80.0-100.0); Mean Platelet Volume 10.3 fL (9.4-12.4); Platelet Count 204 K/uL (130-400); RDW Coefficient of Variation 14.9 % (11.5-14.5); RDW Standard Deviation 48.9 fL (36.4-46.3); Red Blood Count 4.38 M/uL (4.70-6.10); White Blood Count 6.61 K/ul (4.8-10.8)
[2023-02-27 08:57] LABS: Albumin Globulin Ratio 1.4 (0.9-2); Albumin Level 3.7 gm/dl (3.4-5.0); BUN Creatinine Ratio 9.4 (10-20); Bilirubin,Total 0.6 mg/dl (0.2-1.0); Calcium 8.3 mg/dl (8.6-10.3); Creatinine Clr Calc Pharmacy 65.1 ml/min; Est GFR (African American) 94.7 ml/min; Est GFR (Non-African American) 81.7 ml/min; Globulin 2.7 gm/dl (2.5-4.0); Magnesium 1.8 mg/dl (1.7-2.4); Potassium 3.7 mmol/L (3.5-5.1); Total Protein 6.4 gm/dl (6.0-8.3)
[2023-02-27] MEDS: TAMSULOSIN HCL 0.4 MG CAP PO SCH (09:10)
[2023-02-27] MEDS: DUTASTERIDE 0.5 MG PO SCH (09:11)
[2023-02-27] MEDS: SODIUM CHLORIDE 0.9% 1,000 ML IV SCH (09:33)
--- NOTE | 2023-02-27 10:24 | Surgery Progress Note ---
Date of Service February 27, 2023 Assessment & Plan (1) SBO (small bowel obstruction): Plan: Still unclear exactly what is going on. Awaiting the reading of his KUB this morning. Clinically doing better so we will advance his diet to full liquids and potentially low residue for dinner tonight. If he does well with those he could probably be discharged tomorrow Admission and Anticipated Discharge Date Admission Date: February 25, 2023 Subjective Patient states that he continues to improve. He has essentially no pain this morning and no nausea. He is tolerating clear liquids. He would really like to go home. Physical Exam Constitutional: WD/WN, vitals as above no acute distress and not ill appearing Eyes: PERRL, conjunctivae normal, anicteric sclerae EOM intact bilaterally ENMT: external ear and nose normal, oropharynx normal Ears: no hearing impairment Neck: trachea midline, no thyromegaly Respiratory: normal respiratory effort; no respiratory distress and does not use accessory muscles Cardiovascular: Rate/Rhythm: regular rate and regular rhythm Gastrointestinal (Abdomen): Soft. Minimal tenderness. Improved since admission Skin: no rashes, warm and dry Psychiatric: Orientation: alert, oriented x 3 and cooperative Results & Data Vital Signs (Past 12 Hours) Vital Signs Temp Pulse Resp BP Pulse Ox O2 Del Method 02/27/23 07:28 36.6 C 79 16 142/67 H 97 Room Air PG Care Time/CCT Total # of Minutes Spent Total Time Spent with Patient: Total time spent is greater than 50% in coordination of care (as documented) at patient's floor/unit and/or counseling patient: Coding Level of Care Code 81168 SUB INP/OBS CARE 2/35MIN Diagnoses SBO (small bowel obstruction) K56.609
--- NOTE | 2023-02-27 10:42 | XRay Report ---
KUB CLINICAL HISTORY: Small bowel obstruction. COMPARISON STUDY: CT of the abdomen and pelvis February 25, 2023. FINDINGS: Several loops of mildly dilated small bowel measure up to 5.3 cm in caliber. The findings r epresent a persistent small bowel obstruction. Several right renal calculi are present. A few right r enal pelvis calculi are again noted. No evidence for free air although sensitivity diminished on supi ne exam. IMPRESSION: Findings consistent with a persistent small bowel obstruction. ACT 112: Negative or not required by law. Electronically signed by: Wood Salter M.D. 02/27/2023 10:41 AM
[2023-02-27] MEDS: PANTOprazole 40 MG in SYRINGE 0 ML IV SCH (10:48)
--- NOTE | 2023-02-27 14:19 | Hospitalist Progress Note ---
Date of Service February 27, 2023 Assessment & Plan (1) SBO (small bowel obstruction): (2) Abnormal CT scan: Plan: This is an 82-year-old male with PMH of prediabetes, dyslipidemia, GERD, fatty liver, BPH and other medical problems listed below who presents with progressively worsening abdominal pain over the past few days [employer] and was found to have abnormal CT abd/pelvis findings suggestive of SBO. -- Admitting CT abd/pelvis : there are thick-walled and distended loops of proximal jejunum in the left upper quadrant with surrounding infiltration and interloop fluid/edema. This abruptly transitions to more normal appearing small bowel in the upper abdomen with only mild change in caliber of the bowel loops at this site. The appearance favors a small bowel obstruction, although the transition point is somewhat atypical. A closed loop type obstruction could potentially have this appearance, and given the degree of wall thickening and vascular congestion these loops may be at risk for ischemia. The superior mesenteric artery and celiac trunk are widely patent. Surgical evaluation is advised. Evaluated by Dr. Clemons in ED due to concern for ischemia on CT scan - looked clinically well, normal lactic acid at presentation. Starting on empiric Zosyn, gentle fluids, pain control, antiemetics. Will continue same. Lactate today 02/26. Patient moved 3 bowels again, general surgery on board, patient advance to full liquid diet. Repeat BMP, CBC in AM We will continue to monitor. Repeat KUB w/ persistent SBP but Patient reports improvement in his belly pain. Pt clinically better. (3) BPH (benign prostatic hyperplasia): Plan: Holding BPH meds for now as patient may go to OR Bladder scan, place cohn if needed (4) Pre-diabetes: Plan: Monitor BSG, diabetic diet once advanced (5) Hyperlipidemia: Plan: Resume statin once diet is advanced DVT Ppx: SCDs Code status: FULL PCP: Berny Dispo: Admit to med/surg , pending sx clearance. Patient seen in collaboration with Dr. Valenzuela. Please see addendum. Admission and Anticipated Discharge Date Admission Date: February 25, 2023 Subjective Patient was seen and examined at bedside. Patient was lying in bed, on room air, resting comfortably, not in any acute distress. Patient reports moving 3 more bowel movements today. Reports his abdomen getting softer and reports abdominal pain getting better. Patient is tolerating clear liquid diet. Surgery is on board, diet advanced to full liquid. Patient denies any fever/chills/chest pain/cough/other review of symptoms. Physical Exam Physical Exam: GENERAL: Alert and oriented x3. NAD, on RA. HEENT: No pallor, no icterus. Pupils equal, round and reactive to light. Oral mucosa moist. NECK: No JVD, no neck masses. HEART: S1 and S2 heard. Regular rate and rhythm. No murmur, no gallop. RESPIRATORY SYSTEM: Normal AP diameter. No accessory muscle use. No wheezing, no crackles. ABDOMEN: Soft, bowel sounds present, nontender, no distention. CENTRAL NERVOUS SYSTEM: No facial droop. Speech is clear. Obeys simple commands. Moves extremities. EXTREMITIES: No edema, no erythema seen. Results & Data Results & Data Vital Signs (Past 12 Hours) Vital Signs Temp Pulse Resp BP Pulse Ox O2 Del Method 02/27/23 07:28 36.6 C 79 16 142/67 H 97 Room Air
[2023-02-28] MEDS: PIPERACILLIN/TAZOBACTAM 4.5 GM in DEXTROSE 5% MINI-B 100 ML IV SCH ×2 (02:07→11:11)
[2023-02-28] MEDS: SODIUM CHLORIDE 0.9% 1,000 ML IV SCH (02:07)
[2023-02-28 08:17] LABS: BUN Creatinine Ratio 7.4 (10-20); Calcium 8.4 mg/dl (8.6-10.3); Creatinine Clr Calc Pharmacy 68.3 ml/min; Est GFR (African American) 96.6 ml/min; Est GFR (Non-African American) 83.4 ml/min; Potassium 3.9 mmol/L (3.5-5.1)
[2023-02-28] MEDS: DUTASTERIDE 0.5 MG PO SCH (08:39)
[2023-02-28] MEDS: TAMSULOSIN HCL 0.4 MG CAP PO SCH (08:39)
[2023-02-28] MEDS: ROSUVASTATIN CALCIUM 5 MG TAB PO SCH (08:40)
[2023-02-28 08:49] LABS: Hematocrit (blood only) 37.2 % (42.0-52.0); Hemoglobin 11.9 g/dl (14.0-18.0); Mean Corpuscular Hemoglobin 27.9 pg (25.0-34.0); Mean Corpuscular Volume 87.3 fL (80.0-100.0); Mean Platelet Volume 10.3 fL (9.4-12.4); Platelet Count 214 K/uL (130-400); RDW Coefficient of Variation 14.6 % (11.5-14.5); RDW Standard Deviation 46.7 fL (36.4-46.3); Red Blood Count 4.26 M/uL (4.70-6.10); White Blood Count 5.96 K/ul (4.8-10.8)
--- NOTE | 2023-02-28 09:47 | Surgery Progress Note ---
Date of Service February 28, 2023 Assessment & Plan (1) Abnormal CT scan: Plan: Etiology unclear but he continues to improve clinically. I do believe it is okay to discharge him. I would send him home on antibiotics. I would like to see him in the office in 2 to 3 weeks. (2) Epigastric abdominal pain: Admission and Anticipated Discharge Date Admission Date: February 25, 2023 Subjective Patient seen. "I feel great" he has no abdominal pain at this point in time. He is tolerating full liquid diet with no nausea Physical Exam Constitutional: WD/WN, vitals as above no acute distress and not ill appearing Eyes: PERRL, conjunctivae normal, anicteric sclerae EOM intact bilaterally ENMT: external ear and nose normal, oropharynx normal Ears: no hearing i mpairment Neck: trachea midline, no thyromegaly Respiratory: normal respiratory effort; no respiratory distress and does not use accessory muscles Cardiovascular: Rate/Rhythm: regular rate and regular rhythm Gastrointestinal (Abdomen): Soft. Nontender. Nondistended. Improved from his admission exam Skin: no rashes, warm and dry Psychiatric: Orientation: alert, oriented x 3 and cooperative Results & Data Vital Signs (Past 12 Hours) Vital Signs Temp Pulse Resp BP Pulse Ox O2 Del Method 02/28/23 07:09 36.4 C L 73 16 172/76 H 96 Room Air PG Care Time/CCT Total # of Minutes Spent Total Time Spent with Patient: Total time spent is greater than 50% in coordination of care (as documented) at patient's floor/unit and/or counseling patient: Coding Level of Care Code 88030 SUB INP/OBS CARE 2/35MIN Diagnoses Abnormal CT scan R93.89 Epigastric abdominal pain R10.13
[2023-02-28] MEDS: PANTOprazole 40 MG in SYRINGE 0 ML IV SCH (11:11)
--- NOTE | 2023-02-28 12:14 | Discharge Summary ---
Date of Service February 28, 2023 Admission HPI Per Admitting Provider This is an 82-year-old male with PMH of prediabetes, dyslipidemia, GERD, fatty liver, BPH and other medical problems listed below who presents with progressively worsening abdominal pain over the past few days. Describes abdominal pain in epigastric-mid abdomen region with associated decreased appetite. Denies any nausea or vomiting. Had a normal appetite until this morning when he made oatmeal and apples and did not feel well enough to eat it. History of remote hernia repair and open appendectomy in the 60s. Only takes 2 prescription medications regularly-tamsulosin and a statin. Denies any fever, chills, sore throat, congestion, chest pain, shortness of breath, nausea, vomiting, dysuria, diarrhea or constipation. Admission Exam Per Admitting Provider General Appearance: WD/WN, vitals as above, NAD, sitting up in bed, pleasant, conversing easily Head: normocephalic, atraumatic Eyes: normal inspection, PERRL, conjunctivae normal, anicteric sclerae ENT: external ear and nose normal, oropharynx normal Neck: normal visual inspection, trachea midline, no thyromegaly Respiratory: normal respiratory effort, lungs clear to auscultation, no wheeze, rales, rhonchi. No accessory muscle use Cardiovascular: regular rate, rhythm, no murmur, normal peripheral pulses, no BLE edema. Vessels: no JVD Chest: normal inspection of chest Abdomen/GI: normal bowel sounds, soft but distended, TTP in amita-umbilical region Extremities/Musculoskeletal: no cyanosis or clubbing, extremities motor strength 5/5 Neurologic: PERRL, EOMI, accommodation nl, no face palsy, no dysarthria, CN's II-XI intact bilaterally and moves all extremities Psychiatric: A+Ox3, euthymic affect Skin: no rashes, normal color, warm/dry Principal Diagnosis Small bowel obstruction Hypertension Discharge Exam GENERAL: Alert and oriented x3. NAD, on RA. HEENT: No pallor, no icterus. Pupils equal, round and reactive to light. Oral mucosa moist. NECK: No JVD, no neck masses. HEART: S1 and S2 heard. Regular rate and rhythm. No murmur, no gallop. RESPIRATORY SYSTEM: Normal AP diameter. No accessory muscle use. No wheezing, no crackles. ABDOMEN: Soft, bowel sounds present, nontender, no distention. CENTRAL NERVOUS SYSTEM: No facial droop. Speech is clear. Obeys simple commands. Moves extremities. EXTREMITIES: No edema, no erythema seen. Discharge Data Allergies Allergy/AdvReac Type Severity Reaction Status Date / Time methylprednisolone AdvReac Mild Tachycardia Unverified 02/25/23 18:52 albuterol AdvReac Unknown Verified 02/25/23 18:53 finasteride AdvReac Migraine Verified 02/25/23 18:53 Consultations 02/25/23 18:42 ED Decision to Admit Stat 02/25/23 23:10 Consult General Surgery Routine Ordered Studies 02/25/23 14:21 CT abd pelvis IV con only Stat Hospital Course (1) SBO (small bowel obstruction): (2) Abnormal CT scan: This is an 82-year-old male with PMH of prediabetes, dyslipidemia, GERD, fatty liver, BPH and other medical problems listed below who 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 -- Admitting CT abd/pelvis : there are thick-walled and distended loops of proximal jejunum in the left upper quadrant with surrounding infiltration and interloop fluid/edema. This abruptly transitions to more normal appearing small bowel in the upper abdomen with only mild change in caliber of the bowel loops at this site. The appearance favors a small bowel obstruction, although the transition point is somewhat atypical. A closed loop type obstruction could potentially have this appearance, and given the degree of wall thickening and vascular congestion these loops may be at risk for ischemia. The superior mesenteric artery and celiac trunk are widely patent. Surgical evaluation is advised. Evaluated by Dr. Clemons in ED due to concern for ischemia on CT scan - looked clinically well, normal lactic acid at presentation. Starting on empiric Zosyn, gentle fluids, pain control, antiemetics. Will continue same. Lactate on 02/26 was nl. Patient moving bowels, tolerating advancement of diet. Discussed with surgery, plan to discharge with total of 7 days of antibiotic therapy. Patient to maintain low fiber diet for next several days until his bowel pain completely resolves. Patient has been made aware. (3) BPH (benign prostatic hyperplasia): Continue with home meds. (4) Pre-diabetes: Monitor BSG, diabetic diet once advanced (5) Hyperlipidemia: Continue with home meds. DVT Ppx: SCDs Code status: FULL PCP: Berny Hahn Patient is being discharged with following instruction at the point of discharg e: Follow-up with your primary care physician within a week time and likely you will need labs CBC/CMP/magnesium/phosphorus. Maintain low fiber diet until next several days until your bowel pain completely resolves, then gradually progress towards your regular consistency diet. You will be discharged on antibiotic to complete 7-day course. Take your antibiotics as prescribed. As discussed with yourself, since your blood pressure is on the higher side, you will be started on single blood pressure medication. Maintain measurement of your blood pressure twice a day, maintain a log to take to your PCP for further evaluation/management of your hypertension. Take your medications as prescribed. Please make sure that you are able to get your medications today by calling your pharmacy before you leave the hospital so that your treatment continuity is not broken. Home Health Attestation I certify that this patient is under my care and that I, or a physicians training program assistant working with me, had a face to-face encounter that meets the home health [id number] encounter requirements with this patient. The encounter with the patient was in whole, or in part, for the following medical condition, which is the primary reason for home health care (list medical condition): I certify that, based on my findings, the following services are medically necessary home health services: My clinical findings support the need for the above services because: Further, I certify that my clinical findings support that this patient is homebound (i.e. absences from home require considerable and taxing effort and are for medical reasons or taoism services or infrequently or of short duration when for other reasons) because: Certification for Home Health Services: Based on the above findings, I certify that this patient is confined to the home and needs intermittent custodial care, physical therapy and/or speech therapy or continues to need occupational therapy. The patient is under my care, and I have initiated the establishment of the plan of care. This patient will be followed by a physician who will periodically review the plan of care. Total Time Total Time Spent Total Time Spent (In Minutes): 45 Discharge Plan Discharge Items Patient Disposition: Home - Self-Care Reason For Visit: SBO, POSS ISCHEMIC COLITIS Discharge Diagnosis: Small bowel obstruction Hypertension Activity: Resume your previous activity Non-emergency contact: Primary Care Provider Call non-emergency contact if: you have any medication questions, your symptoms worsen and your temperature is above 101.5 Follow-up/Referrals: Dragan Clemons, [Surgeon] - Clarissa Driver, [Outside Practitioners] - Diet: Low Fiber Addtl Attending Provider Instructions: Follow-up with your primary care physician within a week time and likely you will need labs CBC/CMP/magnesium/phosphorus. Maintain low fiber diet until next several days until your bowel pain completely resolves, then gradually progress towards your regular consistency diet. You will be discharged on antibiotic to complete 7-day course. Take your antibiotics as prescribed. As discussed with yourself, since your blood pressure is on the higher side, you will be started on single blood pressure medication. Maintain measurement of your blood pressure twice a day, maintain a log to take to your PCP for further evaluation/management of your hypertension. Take your medications as prescribed. Please make sure that you are able to get your medications today by calling your pharmacy before you leave the hospital so that your treatment continuity is not broken. Pending Studies at Discharge: No Stand-Alone Forms: My [facility], Smoking Cessation Medications and DC Order Prescriptions: New amlodipine [Norvasc] 5 mg Tablet 5 mg PO QAM Qty: 30 0RF amoxicillin-pot clavulanate 875-125 mg tablet 1 tab PO BID 5 Days Qty: 10 0RF Probiotic 3 billion cell capsule 3,000 mmu cells PO DAILY 7 Days Qty: 7 0RF Rx Instructions: administer with a meal Continued tamsulosin [Flomax] 0.4 mg Capsule 0.8 mg PO QAM PreserVision AREDS-2 [id number]-mg Capsule 1 tab PO QAM acetaminophen 500 mg tablet 1,000 mg PO Q8 PRN (Reason: Pain) dutasteride 0.5 mg capsule 0.5 mg PO QAM rosuvastatin 5 mg tablet 5 mg PO QAM docusate sodium 100 mg Capsule 100 mg PO AMHS polyethylene glycol 3350 [Miralax] 17 gram/dose Powder 17 g PO QAM Discharge Orders: Discharge Order (Routine); Ordered 02/28/23 Ordered By: Quiana Schroeder Admission Data Admit Date/Time: 02/25/23 19:26 Attending Provider: Quiana Schroeder Admit Provider: Deysi Valenzuela Primary Care Provider: PCP,NO Other Providers: Santi Gonzales; Dragan Clemons
[2023-02-28] MEDS ORDERED: amLODIPine BESYLATE 5 MG TAB PO SCH (12:15)
== END 2023-02-28 14:53 | disposition home or self-care (01) | DRG 390 ==
LOC: ED 14:05 → SUATTDRO 19:26 → 3N 19:26